=== PATIENT | male | born 1945 | race Caucasian/White ===

== ENCOUNTER 2020-02-09 15:04 | Inpatient (IN) ==
[2020-02-09] MEDS ORDERED: 0.9 % SODIUM CHLORIDE 2,000 ML IV ONE (15:32)
[2020-02-09] MEDS ORDERED: INSULIN REGULAR, HUMAN 1 UNIT/0.01 ML UNIT IV ONE (15:48)
--- NOTE | 2020-02-09 15:59 | Emergency Department Note ---
HPI General Chief complaint: Blood Sugar Problem Stated complaint: hyperglycemia/hypotension Time Seen by Provider: 02/09/20 15:12 Source: patient Mode of arrival: ambulatory Limitations: altered mental status History of Present Illness HPI Narrative: Narrative: 75-year-old male comes over from Dr. Griffin's office for elevated blood sugar and creatinine. He has had some general malaise and weakness but denies fever shortness of breath chest pain or other recent illness. He is an insulin-dependent diabetic with multiple comorbidities. Denies recent exposure to Covid. He does note that he fell several days ago and injured his right elbow-this is mildly red and swollen but he is able to move it normally. Related Data Home Medications Medication Instructions Recorded Confirmed atorvastatin 40 mg PO HS 12/16/16 02/09/20 clopidogrel 75 mg PO DAILY 12/16/16 02/09/20 coenzyme Q10 100 mg capsule 100 mg PO QDAY 11/05/18 02/09/20 metformin 500 mg tablet 1,000 mg PO BID 11/05/18 02/09/20 nitroglycerin 0.4 mg sublingual 0.4 mg SUBLINGUAL Q5-15M PRN 11/05/18 02/09/20 tablet aspirin 81 mg tablet,delayed 81 mg PO HS tab 11/25/18 02/09/20 release insulin detemir U-100 100 unit/mL 26 unit SUB-Q QDAY ml 06/17/19 02/10/20 (3 mL) subcutaneous pen urea 25 %-alpha hydroxy acids 6 % See Rx Instructions TOPICAL BID g 06/24/19 02/09/20 topical cream Previous Rx's Medication Instructions Recorded tamsulosin 0.4 mg PO HS #30 cap 03/20/17 carboxymethylcellulose sodium 0.5 1 drp OPHTHALMIC 4-6XD PRN #30 ml 06/17/19 % eye drops Allergies Allergy/AdvReac Type Severity Reaction Status Date / Time lovastatin Allergy Unknown Unknown Verified 02/09/20 15:05 niacin Allergy Unknown Unknown Verified 02/09/20 15:05 morphine [MORPHINE] AdvReac Mild Nausea/Vomi Verified 02/10/20 06:52 ting Review of Systems ROS ROS Narrative: Narrative: All systems ED: reviewed and negative except as stated. [facility] Narrative Patient History Narrative: Narrative: Medical/Surgical/Family History All Active Problems (Updated 02/09/20 @ 18:55 by Ricardo Mcmullen MD) Hyperosmolar non-ketotic state due to type 2 diabetes mellitus (Acute) Acute kidney injury (Acute) Fall (Acute) Cellulitis of right elbow (Acute) Polypharmacy (Acute) Hypotension (Acute) Dehydration determined by examination (Acute) Frequent falls (Acute) Hypothyroidism (Acute) Gastroenteritis and colitis, viral (Acute) Peripheral vascular disease with claudication (Chronic) Type II diabetes mellitus with complication, uncontrolled (Chronic) Diabetic foot ulcer (Chronic) Memory impairment (Chronic) Skin lesion (Chronic) Intention tremor (Chronic) Epigastric pain (Chronic) Chronic abdominal pain (Chronic) Chronic low back pain (Chronic) GERD (gastroesophageal reflux disease) (Chronic) COPD (chronic obstructive pulmonary disease) (Chronic) Peripheral vascular disease (Chronic) Arteriosclerotic vascular disease (Chronic) Essential hypertension (Chronic) Obstructive sleep apnea syndrome (Chronic) Tobacco dependence syndrome (Chronic) Body mass index exceeds 30 (Chronic) Obesity (Chronic) Hyperlipidemia (Chronic) Diabetes mellitus (Chronic) Chronic kidney disease, stage 3 (moderate) (Chronic) Abdominal pain (Chronic) Dehydration (Chronic) Renal failure (ARF), acute on chronic (Chronic) Ileus, postoperative (Chronic) Urinary retention (Chronic) Medical History Abdominal pain (Chronic) Arteriosclerotic vascular disease (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 Both are slightly above the upper limit of normal As he frequently shows up dehydrated from hypoglycemia this is the reason his KATHIE inhibitor was stopped to prevent acute renal failure under the situations Chronic low back pain (Chronic) COPD (chronic obstructive pulmonary disease) (Chronic) Dehydration (Chronic) Diabetes mellitus (Chronic) Diabetic foot ulcer (Chronic) Epigastric pain (Chronic) Essential hypertension (Chronic) GERD (gastroesophageal reflux disease) (Chronic) Hyperlipidemia (Chronic) Intention tremor (Chronic) Bilateral Hands Memory impairment (Chronic) Obesity (Chronic) Obstructive sleep apnea syndrome (Chronic) Peripheral vascular disease (Chronic) Peripheral vascular disease with claudication (Chronic) Carotid and lower extremity large vessel Dx No retinopathy or nephropathy to suggest small vessel disease Renal failure (ARF), acute on chronic (Chronic) Skin lesion (Chronic) Tobacco dependence syndrome (Chronic) Type II diabetes mellitus with complication, uncontrolled (Chronic) Peripheral neuropathy and PVD HTN No evidence of Diabetic nephropathy Frequently uncontrolled with blood sugars greater than 400 Surgical History History of cardiac catheterization (Chronic ~10/16/18) S/P arterial stent (Chronic) Femoral Family History Brother Malignant tumor of pancreas Father Pulmonary emphysema [place] (myocardial infarction) Mother FHx: cholecystectomy Hx of appendectomy H/O knee surgery Social History Smoking Status: Current every day smoker Alcohol Intake Frequency: does not drink Substance Use: does not use Exam Narrative Narrative: Narrative: Thin male no acute distress resting. Low normal oxygen saturations 90 to 91% on room air but he is a smoker. Normocephalic atraumatic. Conjunctive are clear sclerae white nonicteric. No nasal discharge or congestion. Oropharynx pink with dry buccal mucosa. Neck is supple without lymphadenopathy or thyromegaly. Heart is regular rate and rhythm no murmur appreciated. Lungs are clear to auscultation bilaterally without wheezes rales rhonchi or respiratory distress. Abdomen is soft nontender nondistended. No peritoneal signs. No pedal edema. +2 radial pulse. Alert oriented able to give me reasonable history and review of systems Right elbow is mildly erythematous and edematous and he does have a small area of abrasion. It is mildly tender but he is able to move his arm forearm wrist and hand normally. General Limitations: altered mental status Course Vital Signs Vital signs: Vital Signs Temperature 98.2 F 02/09/20 15:07 Pulse Rate 76 02/09/20 15:07 Respiratory Rate 22 02/09/20 15:07 Blood Pressure 88/53 02/09/20 15:07 Pulse Oximetry (%) 93 02/09/20 15:07 Temperature 98 F 02/10/20 08:01 Pulse Rate 53 L 02/10/20 09:00 Respiratory Rate 21 02/10/20 09:00 Blood Pressure 114/49 02/10/20 09:00 Pulse Oximetry (%) 91 02/10/20 09:14 [facility] MDM Narrative Medical decision making narrative: Narrative: Fingerstick blood sugar here greater than 500 on her meter. We will go ahead and give him an insulin bolus IV fluids and start an insulin drip. Labs were ordered. We will do a rapid Covid swab as he will likely require admission Creatinine is 2.0 and he does have a leukocytosis of 16.7. Blood sugar was 875. He has a mild lactic acidosis as well. We will continue the insulin drip. He will require admission-we will order a blood gas and a beta hydroxybutyrate ABG shows pH 7.33 PCO2 31 PO2 of 58-mild acidosis. Beta hydroxybutyrate was normal as was his urine Blood sugar was improving with fluids and drip and so we continue to titrate it. We got an x-ray of his elbow and started antibiotics Rocephin. Blood sugar trended down to 246 on the drip Elbow x-ray showed soft tissue swelling but no acute fracture or dislocation. I discussed the situation with Dr. Álvarez, the hospitalist and he advised me to get blood cultures and EKG and a chest x-ray. He will see the patient. A1c is noted to be 11.3 earlier this month. We will continue to titrate his insulin drip while he is in the ER Lab Data Lab results reviewed: Yes I reviewed the patient's lab results. Result diagrams: 02/10/20 05:36 02/10/20 05:36 Labs: Lab Results 02/09/20 02/09/20 02/09/20 Range/Units 15:40 15:40 15:40 WBC 16.7 H (4.5-11.0) K/mcL RBC 6.91 H (4.50-5.90) M/mcL Hgb 15.2 (13.5-16.5) g/dL Hct 53.4 (41.0-55.0) % MCV 77.3 L (80.0-100.0) fL MCH 22.0 L (26.0-34.0) pg MCHC 28.5 L (31.0-36.0) g/dL RDW 22.3 H (11.5-14.5) % Plt Count 350 (140-440) K/mcL MPV (7.4-10.4) fL Neut % (Auto) 90.9 H (38.0-78.0) % Lymph % (Auto) 4.1 L (15.0-49.0) % [place] % (Auto) 3.8 (1.0-12.0) % Eos % (Auto) 0.7 (0.0-7.0) % Baso % (Auto) 0.5 (0.0-2.0) % Lymph # (Auto) 0.68 L (1.50-4.80) K/mcL [place] # (Auto) 0.64 (0.10-0.90) K/mcL Eos # (Auto) 0.12 (0.00-0.70) K/mcL Baso # (Auto) 0.08 (0.00-0.20) K/mcL Absolute Neutrophils 15.19 H (1.80-8.00) K/mcL VBG Lactic Acid 2.3 H (0.5-2.0) mmol/L Sodium 123 L (133-145) mmol/L Potassium 5.1 (3.3-5.1) mmol/L Chloride 84 L (96-108) mmol/L Carbon Dioxide 23 (22-30) mmol/L Anion Gap 16.0 (8.0-16.0) BUN 24 H (8-23) mg/dL Creatinine 2.0 H (0.7-1.2) mg/dL GFR Calculation 32 Glucose 875 H* (70-105) mg/dL Calcium 9.3 (8.6-10.4) mg/dL Total Bilirubin 0.6 (0.1-1.0) mg/dL AST 16 (<40) U/L ALT 17 (<40) U/L Alkaline Phosphatase 187 H (39-117) U/L Total Protein 7.3 (5.9-8.4) gm/dL Albumin 3.8 (3.2-5.2) gm/dL Globulin 3.5 (2.2-3.7) gm/dL Albumin/Globulin Ratio 1.1 (1.0-2.3) Lipase 36 (7-60) U/L Beta-Hydroxybutyrate (<0.27) mmol/L Urine Color Urine Appearance (Clear) Urine pH (5.0-9.0) Ur Specific [place] (1.000-1.035) Urine Protein (Negative) mg/dL Urine Glucose (UA) (Negative) mg/dL Urine Ketones (Negative) mg/dL Urine Occult Blood (Negative) mg/dL Urine Nitrate (Negative) Urine Bilirubin (Negative) mg/dL Urine Urobilinogen mg/dL Ur Leukocyte Esterase (Negative) /ug Urine RBC (0-1) /hpf Urine WBC (0-4) /hpf Ur Squamous Epith Cells (0-4) /hpf Urine Bacteria (0) /hpf Urine Mucus (None) /hpf Ur Culture Indicated? 02/09/20 02/09/20 Range/Units 15:40 17:17 WBC (4.5-11.0) K/mcL RBC (4.50-5.90) M/mcL Hgb (13.5-16.5) g/dL Hct (41.0-55.0) % MCV (80.0-100.0) fL MCH (26.0-34.0) pg MCHC (31.0-36.0) g/dL RDW (11.5-14.5) % Plt Count (140-440) K/mcL MPV (7.4-10.4) fL Neut % (Auto) (38.0-78.0) % Lymph % (Auto) (15.0-49.0) % [place] % (Auto) (1.0-12.0) % Eos % (Auto) (0.0-7.0) % Baso % (Auto) (0.0-2.0) % Lymph # (Auto) (1.50-4.80) K/mcL [place] # (Auto) (0.10-0.90) K/mcL Eos # (Auto) (0.00-0.70) K/mcL Baso # (Auto) (0.00-0.20) K/mcL Absolute Neutrophils (1.80-8.00) K/mcL VBG Lactic Acid (0.5-2.0) mmol/L Sodium (133-145) mmol/L Potassium (3.3-5.1) mmol/L Chloride (96-108) mmol/L Carbon Dioxide (22-30) mmol/L Anion Gap (8.0-16.0) BUN (8-23) mg/dL Creatinine (0.7-1.2) mg/dL GFR Calculation Glucose (70-105) mg/dL Calcium (8.6-10.4) mg/dL Total Bilirubin (0.1-1.0) mg/dL AST (<40) U/L ALT (<40) U/L Alkaline Phosphatase (39-117) U/L Total Protein (5.9-8.4) gm/dL Albumin (3.2-5.2) gm/dL Globulin (2.2-3.7) gm/dL Albumin/Globulin Ratio (1.0-2.3) Lipase (7-60) U/L Beta-Hydroxybutyrate 0.22 (<0.27) mmol/L Urine Color Yellow Urine Appearance Clear (Clear) Urine pH 5.0 (5.0-9.0) Ur Specific [place] 1.028 (1.000-1.035) Urine Protein Negative (Negative) mg/dL Urine Glucose (UA) >=500 A (Negative) mg/dL Urine Ketones Negative (Negative) mg/dL Urine Occult Blood Negative (Negative) mg/dL Urine Nitrate Negative (Negative) Urine Bilirubin Negative (Negative) mg/dL Urine Urobilinogen Negative mg/dL Ur Leukocyte Esterase Negative (Negative) /ug Urine RBC < 1 (0-1) /hpf Urine WBC 1 (0-4) /hpf Ur Squamous Epith Cells 0 (0-4) /hpf Urine Bacteria None (0) /hpf Urine Mucus Few A (None) /hpf Ur Culture Indicated? No Radiology Data Radiology results reviewed: Yes I reviewed the patient's radiology results. Radiology results narrative: Elbow x-rays series shows no acute fracture or dislocation. Soft swelling noted Discharge Plan Patient/Caregiver Discharge Instructions Pt seen by MANAGED SERVICES SALES CONSULTANT/PA only: No Clinical Impression: Hyperosmolar non-ketotic state due to type 2 diabetes mellitus, Acute kidney injury, Cellulitis of right elbow Fall Qualifiers: Encounter type: initial encounter Qualified Code(s): W19.XXXA - Unspecified fal l, initial encounter Patient Disposition: Xfer As Inpt ([facility]) Condition: Fair Discharge Date/Time: 02/09/20 23:50
[2020-02-09] MEDS ORDERED: INSULIN REGULAR, HUMAN 50 UNIT in 0.9 % SODIUM CHLORIDE 99.5 ML IV SCH ×2 (16:00→23:52)
[2020-02-09 16:51] LABS: Basophils # (Auto) 0.08 K/mcL (0.00-0.20); Basophils % (Auto) 0.5 % (0.0-2.0); Eosinophils # (Auto) 0.12 K/mcL (0.00-0.70); Eosinophils % (Auto) 0.7 % (0.0-7.0); Hematocrit 53.4 % (41.0-55.0); Hemoglobin 15.2 g/dL (13.5-16.5); Lymphocytes # (Auto) 0.68 K/mcL (1.50-4.80); Lymphocytes % (Auto) 4.1 % (15.0-49.0); Mean Cell Volume 77.3 fL (80.0-100.0); Mean Corpuscular HGB Conc 28.5 g/dL (31.0-36.0); Monocytes # (Auto) 0.64 K/mcL (0.10-0.90); Monocytes % (Auto) 3.8 % (1.0-12.0); Neutrophils % (Auto) 90.9 % (38.0-78.0); Platelet Count 350 K/mcL (140-440); RBC 6.91 M/mcL (4.50-5.90); Red Cell Distribution Width 22.3 % (11.5-14.5); WBC 16.7 K/mcL (4.5-11.0)
[2020-02-09 17:16] LABS: ALT/SGPT 17 U/L (<40); AST/SGOT 16 U/L (<40); Albumin 3.8 gm/dL (3.2-5.2); Albumin/Globulin Ratio 1.1 (1.0-2.3); Alkaline Phosphatase 187 U/L (39-117); Bilirubin,Total 0.6 mg/dL (0.1-1.0); Blood Urea Nitrogen 24 mg/dL (8-23); Calcium 9.3 mg/dL (8.6-10.4); Carbon Dioxide 23 mmol/L (22-30); Chloride 84 mmol/L (96-108); Globulin 3.5 gm/dL (2.2-3.7); Glomerular Filtration Rate 32; Glucose 875 mg/dL (70-105)
[2020-02-09] MEDS ORDERED: cefTRIAXone 1 GM VIAL IV ONE (18:51)
[2020-02-09 19:08] LABS: Appearance,Urine CLEAR (Clear); Bilirubin,Urine Negative (Negative); Color,Urine YELLOW; Culture Indicated,Urine No; Glucose,Urine (UA) >=500 mg/dL (Negative); Ketones,Urine Negative (Negative); Leukocyte Esterase,Urine Negative /ug (Negative); Mucus,Urine FEW /hpf; Nitrate,Urine Negative (Negative); Protein,Urine Negative (Negative); Specific Gravity,Urine 1.028 (1.000-1.035); Urine Blood Negative (Negative); Urine RBC < 1 /hpf (0-1); Urine Squamous Epithelial Cell 0 /hpf (0-4); Urine WBC 1 /hpf (0-4); Urobilinogen,Urine Negative
--- NOTE | 2020-02-09 22:33 | Internal Med History&Physical ---
HPI History of Present Illness Patient information: Note initiated : 02/09/20 at 10:29 pm Service Date, if different from initiated Date: [] Patient: Yoni Santiago 75 y/o M admitted on for hyperglycemia/hypotension. Chief Complaint: [acute kidney injury ] History of present illness: Mr. Santiago is a 75 year old male with a history of CAD, severe PVD, CKD III, poorly controlled IDDM, EDI, extensive tobacco use history, s/p dual lead pacemaker placement who presents to the ED for evaluation of acute on chronic kidney injury. He was sent to the ED by his package dyeing machine operator after routine labs showed an increase in creatinine. In the ED the patient was also found to be severely hyperglycemic with a venous glucose of 875. There is no anion gap and beta hydroxybuterate is normal so hyperosmolar hyperglycemic state was diagnosed. The patient was started on IV fluid and an insulin drip. Other pertinent lab work revealed leukocytosis of 16.7 and a lactic acid level of 2.3. The cause of this is possibly cellulitis of the right elbow which developed after a recent fall. The patient denies recent chest pain, respiratory complaints, abdominal pain, sore throat, the patient does not have any more teeth. ROS is positive for bilateral thigh pain mostly during ambulation. He will be admitted to manage HHS, DERRELL on CKD, and further workup into other possible causes of this illness. Constitutional Constitutional: Present weakness; Absent chills and fatigue EENT Eyes: Present blurry vision; Absent pain Nose, mouth and throat: Absent facial pain and mouth pain Cardiovascular Cardiovascular: Present claudication; Absent chest pain, chest pain with activity, dyspnea on exertion and leg edema Respiratory Respiratory: Absent cough and excessive phlegm production Gastrointestinal Gastrointestinal: Absent abdominal pain and change in bowel habits Genitourinary Genitourinary: urinary frequency Musculoskeletal Musculoskeletal: Present muscle weakness and myalgias Integumentary Integumentary: Present erythema, sores and swelling Neurological Neurological: Present numbness and sensory deficit Psychiatric Psychiatric: Present abnormal sleep pattern PFSH PFSH All Active Problems (Updated 02/09/20 @ 18:55 by Ricardo Mcmullen MD) Hyperosmolar non-ketotic state due to type 2 diabetes mellitus (Acute) Acute kidney injury (Acute) Fall (Acute) Cellulitis of right elbow (Acute) Polypharmacy (Acute) Hypotension (Acute) Dehydration determined by examination (Acute) Frequent falls (Acute) Hypothyroidism (Acute) Gastroenteritis and colitis, viral (Acute) Peripheral vascular disease with claudication (Chronic) Type II diabetes mellitus with complication, uncontrolled (Chronic) Diabetic foot ulcer (Chronic) Memory impairment (Chronic) Skin lesion (Chronic) Intention tremor (Chronic) Epigastric pain (Chronic) Chronic abdominal pain (Chronic) Chronic low back pain (Chronic) GERD (gastroesophageal reflux disease) (Chronic) COPD (chronic obstructive pulmonary disease) (Chronic) Peripheral vascular disease (Chronic) Arteriosclerotic vascular disease (Chronic) Essential hypertension (Chronic) Obstructive sleep apnea syndrome (Chronic) Tobacco dependence syndrome (Chronic) Body mass index exceeds 30 (Chronic) Obesity (Chronic) Hyperlipidemia (Chronic) Diabetes mellitus (Chronic) Chronic kidney disease, stage 3 (moderate) (Chronic) Abdominal pain (Chronic) Dehydration (Chronic) Renal failure (ARF), acute on chronic (Chronic) Ileus, postoperative (Chronic) Urinary retention (Chronic) Medical History Abdominal pain (Chronic) Arteriosclerotic vascular disease (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 Both are slightly above the upper limit of normal As he frequently shows up dehydrated from hypoglycemia this is the reason his KATHIE inhibitor was stopped to prevent acute renal failure under the situations Chronic low back pain (Chronic) COPD (chronic obstructive pulmonary disease) (Chronic) Dehydration (Chronic) Diabetes mellitus (Chronic) Diabetic foot ulcer (Chronic) Epigastric pain (Chronic) Essential hypertension (Chronic) GERD (gastroesophageal reflux disease) (Chronic) Hyperlipidemia (Chronic) Intention tremor (Chronic) Bilateral Hands Memory impairment (Chronic) Obesity (Chronic) Obstructive sleep apnea syndrome (Chronic) Peripheral vascular disease (Chronic) Peripheral vascular disease with claudication (Chronic) Carotid and lower extremity large vessel Dx No retinopathy or nephropathy to suggest small vessel disease Renal failure (ARF), acute on chronic (Chronic) Skin lesion (Chronic) Tobacco dependence syndrome (Chronic) Type II diabetes mellitus with complication, uncontrolled (Chronic) Peripheral neuropathy and PVD HTN No evidence of Diabetic nephropathy Frequently uncontrolled with blood sugars greater than 400 Surgical History History of cardiac catheterization (Chronic ~10/16/18) S/P arterial stent (Chronic) Femoral Family History Brother Malignant tumor of pancreas Father Pulmonary emphysema [place] (myocardial infarction) Mother FHx: cholecystectomy Hx of appendectomy H/O knee surgery Social History (Updated 06/24/19 @ 18:02 by Dawson Griffin MD) occupational status: disabled sexually active: No physical activity: none smoking status: Current every day smoker alcohol intake frequency: does not drink substance use type: does not use seatbelt use: always working smoke detector in home: Yes firearms in home: No MEDS/ALLERGIES Home Medications and Allergies Home Medications Medication Instructions Recorded Confirmed Type atorvastatin 40 mg PO HS 12/16/16 02/09/20 History clopidogrel 75 mg PO DAILY 12/16/16 02/09/20 History tamsulosin 0.4 mg PO HS #30 cap 03/20/17 02/09/20 Rx coenzyme Q10 100 mg capsule 100 mg PO QDAY 11/05/18 02/09/20 History metformin 500 mg tablet 1,000 mg PO BID 11/05/18 02/09/20 History nitroglycerin 0.4 mg sublingual 0.4 mg SUBLINGUAL Q5-15M PRN 11/05/18 02/09/20 History tablet aspirin 81 mg tablet,delayed 81 mg PO HS tab 11/25/18 02/09/20 History release carboxymethylcellulose sodium 0.5 1 drp OPHTHALMIC 4-6XD PRN #30 ml 06/17/19 02/09/20 Rx % eye drops insulin detemir U-100 100 unit/mL 20 unit SUB-Q QDAY ml 06/17/19 02/09/20 History (3 mL) subcutaneous pen urea 25 %-alpha hydroxy acids 6 % See Rx Instructions TOPICAL BID g 06/24/19 02/09/20 History topical cream Allergies Allergy/AdvReac Type Severity Reaction Status Date / Time morphine [MORPHINE] Allergy Intermediate Nausea/Vomi Verified 02/09/20 15:05 ting lovastatin Allergy Unknown Unknown Verified 02/09/20 15:05 niacin Allergy Unknown Unknown Verified 02/09/20 15:05 EXAM Constitutional Vitals: Temp Pulse Resp BP Pulse Ox 98.2 F 66 21 103/50 90 02/09/20 15:07 02/09/20 18:14 02/09/20 22:03 02/09/20 22:03 02/09/20 18:14 Head Head exam: Present atraumatic and normal inspection Eye Eye exam: Absent scleral icterus ENT ENT exam: Present mucous membranes dry Neck Neck exam: Present full ROM; Absent lymphadenopathy and tenderness Respiratory Respiratory exam: Present normal respiratory exam; Absent accessory muscle use Cardiovascular Cardiovascular exam: Present normal rate and rhythm GI/Abdominal GI/Abdominal exam: Present soft; Absent distended, guarding and tenderness Extremities Exam Extremities exam: Present full ROM and joint swelling Additional comments: Right elbow tenderness. Neurological Exam Neurological exam: Present alert and CN II-XII intact Psychiatric Psychiatric exam: Present anxious, normal affect and normal mood Skin Skin exam: Present erythema Additional comments: Redness around wound at right elbow. DATA Data Completed and Pending Labs: Labs from last 24 hours 02/09/20 02/09/20 02/09/20 17:17 15:40 15:40 WBC RBC Hgb Hct MCV MCH MCHC RDW Plt Count MPV Neut % (Auto) Lymph % (Auto) [place] % (Auto) Eos % (Auto) Baso % (Auto) Lymph # (Auto) [place] # (Auto) Eos # (Auto) Baso # (Auto) Absolute Neutrophils VBG Lactic Acid 2.3 H Sodium Potassium Chloride Carbon Dioxide Anion Gap BUN Creatinine GFR Calculation Glucose Calcium Total Bilirubin AST ALT Alkaline Phosphatase Total Protein Albumin Globulin Albumin/Globulin Ratio Lipase Beta-Hydroxybutyrate 0.22 Urine Color Yellow Urine Appearance Clear Urine pH 5.0 Ur Specific [place] 1.028 Urine Protein Negative Urine Glucose (UA) >=500 A Urine Ketones Negative Urine Occult Blood Negative Urine Nitrate Negative Urine Bilirubin Negative Urine Urobilinogen Negative Ur Leukocyte Esterase Negative Urine RBC < 1 Urine WBC 1 Ur Squamous Epith Cells 0 Urine Bacteria None Urine Mucus Few A Ur Culture Indicated? No 02/09/20 02/09/20 15:40 15:40 WBC 16.7 H RBC 6.91 H Hgb 15.2 Hct 53.4 MCV 77.3 L MCH 22.0 L MCHC 28.5 L RDW 22.3 H Plt Count 350 MPV Neut % (Auto) 90.9 H Lymph % (Auto) 4.1 L [place] % (Auto) 3.8 Eos % (Auto) 0.7 Baso % (Auto) 0.5 Lymph # (Auto) 0.68 L [place] # (Auto) 0.64 Eos # (Auto) 0.12 Baso # (Auto) 0.08 Absolute Neutrophils 15.19 H VBG Lactic Acid Sodium 123 L Potassium 5.1 Chloride 84 L Carbon Dioxide 23 Anion Gap 16.0 BUN 24 H Creatinine 2.0 H GFR Calculation 32 Glucose 875 H* Calcium 9.3 Total Bilirubin 0.6 AST 16 ALT 17 Alkaline Phosphatase 187 H Total Protein 7.3 Albumin 3.8 Globulin 3.5 Albumin/Globulin Ratio 1.1 Lipase 36 Beta-Hydroxybutyrate Urine Color Urine Appearance Urine pH Ur Specific [place] Urine Protein Urine Glucose (UA) Urine Ketones Urine Occult Blood Urine Nitrate Urine Bilirubin Urine Urobilinogen Ur Leukocyte Esterase Urine RBC Urine WBC Ur Squamous Epith Cells Urine Bacteria Urine Mucus Ur Culture Indicated? A/P Narrative A/P Narrative: Assessment: 75 year old male with a history of severe PVD, CAD, CKD III, poorly controlled diabetes mellitus, EDI admitted for hyperosmolar hyperglycemic state and DERRELL on CKD. Workup revealed right elbow cellulitis as a possible cause of HHS. #Hyperosmolar hyperglycemic state #Diabetes mellitus type II Plan: IV fluid, insulin drip until glucose < 200 and hemodynamically stable before transitioning to basal/bolus insulin regimen. HHS may have been precipitated by right elbow cellulitis-antibiotics per below. Further workup to include blood cultures, chest xray, EKG to evaluate for other issues that may have precipitated HHS. Holding home Levemir and Metformin. #DERRELL on CKD - probably prerenal, UA was bland, continue IV fluid, follow renal function and urine output. Avoid nephrotoxic medications. #Right elbow cellulitis and wound (nonpurulent) - Start Cefazolin IV, blood culture x2, soft tissue ultrasound to evaluate for underlying abscess, wound care. #Peripheral vascular disease - history of severe peripheral vascular disease, recently has experienced progressive thigh pain with ambulation, check bilateral lower extremity arterial duplex. Check CK level. Continue home Aspirin, Plavix, and Atorvastatin. #Coronary artery disease - no recent chest pains, continue aspirin, plavix, statin, sublingual nitro prn. #EDI - CPAP at bedtime. #Tobacco use disorder - nicotine patch and lozenges. #BPH - hold flomax for now due to hypotension. #DVT prophylaxis - heparin SQ. Time Spent With Patient Time: Total time spent is greater than 50% in coordination of care (as document ed) at patient's floor/unit and/or counseling patient: Total time spent with greater than 50% in coordination of care (as documented) at patient's floor/unit and/or counseling patient:: Greater than 35 minutes
[2020-02-09] MEDS ORDERED: NITROGLYCERIN 0.4 MG TAB.SUBL SL PRN ×2 (23:05→23:52)
[2020-02-09] MEDS ORDERED: 0.9 % SODIUM CHLORIDE 1,000 ML IV SCH (23:52)
[2020-02-09] MEDS ORDERED: 0.9 % SODIUM CHLORIDE 1,000 ML IV ONE (23:52)
[2020-02-10] MEDS ORDERED: ceFAZolin 1 GM VIAL ONE (00:09)
[2020-02-10] MEDS: ceFAZolin 1 GM VIAL IV SCH ×2 (00:43→06:54)
[2020-02-10 01:14] LABS: ALT/SGPT 14 U/L (<40); AST/SGOT 15 U/L (<40); Alkaline Phosphatase 135 U/L (39-117); Bilirubin,Total 0.3 mg/dL (0.1-1.0); Blood Urea Nitrogen 24 mg/dL (8-23); Calcium 8.2 mg/dL (8.6-10.4); Carbon Dioxide 20 mmol/L (22-30); Chloride 100 mmol/L (96-108); Creatine Kinase 55 U/L (24-195); Glomerular Filtration Rate 36; Glucose 170 mg/dL (70-105)
[2020-02-10] MEDS ORDERED: INSULIN GLARGINE, HUMAN 1 UNIT/0.01 ML SQ ONE ×2 (01:19→02:08)
[2020-02-10] MEDS ORDERED: DEXTROSE 31 GM ORAL.SUSP PO PRN ×2 (01:19→08:17)
[2020-02-10] MEDS ORDERED: INSULIN LISPRO 1 UNIT/0.01 ML UNIT SQ SCH (01:30)
[2020-02-10] MEDS: 0.9 % SODIUM CHLORIDE 1,000 ML IV SCH ×2 (01:57→12:42)
[2020-02-10] MEDS: INSULIN LISPRO 1 UNIT/0.01 ML UNIT SQ SCH ×10 (02:08→21:29)
[2020-02-10] MEDS ORDERED: INSULIN LISPRO 1 UNIT/0.01 ML UNIT SQ ONE ×5 (02:15→06:06)
--- NOTE | 2020-02-10 02:33 | Ultrasound Report ---
CLINICAL INFORMATION: Evaluate for abscess COMPARISON: None. FINDINGS: A 2.5 x 2.3 cm complex fluid collection on the extensor surface of the elbow within the subcutaneous fat appreciated. IMPRESSION: 2.5 cm complex fluid collection on the extensor surface of the elbow. Hematoma versus abscess. Interpreted and Authenticated by: Mack Sloan 02/10/20
--- NOTE | 2020-02-10 02:39 | XRay Report ---
CLINICAL INFORMATION: elevated white blood cell count COMPARISON: None. FINDINGS: Dual-chamber pacemaker leads in satisfactory position. Cardiomediastinal silhouette and pulmonary vessels are normal. Probable developing right basilar infiltrate appreciated. There is minor bibasilar scarring and/or atelectasis. Probable COPD noted. No effusion IMPRESSION: Probable COPD with small developing right basilar infiltrate. Minor scattered bibasilar scarring and/or atelectasis. Interpreted and Authenticated by: Mack Sloan 02/10/20
--- NOTE | 2020-02-10 02:43 | XRay Report ---
CLINICAL INFORMATION: Trauma COMPARISON: None. FINDINGS: The elbow joint is normal in width and alignment. No extrasynovial fat pad distention. No fracture or osseous abnormality. Posterior periarticular soft tissue swelling noted. IMPRESSION: No fracture.. Interpreted and Authenticated by: Mack Sloan 02/10/20
[2020-02-10 07:26] LABS: ALT/SGPT 13 U/L (<40); AST/SGOT 15 U/L (<40); Albumin 3.1 gm/dL (3.2-5.2); Albumin/Globulin Ratio 1.1 (1.0-2.3); Alkaline Phosphatase 147 U/L (39-117); Bilirubin,Total 0.3 mg/dL (0.1-1.0); Blood Urea Nitrogen 25 mg/dL (8-23); Calcium 8.3 mg/dL (8.6-10.4); Carbon Dioxide 23 mmol/L (22-30); Chloride 98 mmol/L (96-108); Globulin 2.8 gm/dL (2.2-3.7); Glomerular Filtration Rate 34; Glucose 170 mg/dL (70-105)
[2020-02-10] MEDS ORDERED: DEXTROSE 50% 50 ML VIAL IV PRN (08:17)
[2020-02-10 08:19] LABS: Anisocytosis 2+ (None Seen); Eosinophils % (Manual) 2 % (0-7); Hematocrit 47.1 % (41.0-55.0); Hemoglobin 14.2 g/dL (13.5-16.5); Hypochromasia 1+ (None Seen); Lymphocytes % 8 % (15-49); Mean Cell Volume 72.5 fL (80.0-100.0); Mean Corpuscular HGB Conc 30.1 g/dL (31.0-36.0); Microcytosis 2+ (None Seen); Monocytes % (Manual) 6 % (1-12); Platelet Count 337 K/mcL (140-440); Platelet Estimate NORMAL (Normal); Polychromasia 1+ (None Seen); RBC Morphology ABNORMAL (Normal); Red Cell Distribution Width 21.3 % (11.5-14.5); Segmented Neutrophils % 84 % (38-78); WBC 14.1 K/mcL (4.5-11.0)
[2020-02-10] MEDS: DEXTROSE 50% 50 ML VIAL IV PRN ×2 (08:29→09:49)
[2020-02-10] MEDS: HEPARIN 5,000 UNIT/ML VIAL SQ SCH ×2 (08:32→21:29)
[2020-02-10] MEDS ORDERED: CLOPIDOGREL 75 MG TABLET PO SCH (09:00)
[2020-02-10] MEDS ORDERED: NICOTINE 14 MG PATCH TOPICAL SCH (10:00)
[2020-02-10] MEDS ORDERED: PNEUMOCOCCAL 23-VAL P-SAC VAC 0.5 ML SYRINGE IM ONE (10:00)
[2020-02-10] MEDS: NICOTINE 14 MG PATCH TOPICAL SCH (11:31)
[2020-02-10] MEDS: CLOPIDOGREL 75 MG TABLET PO SCH (13:06)
[2020-02-10] MEDS ORDERED: ceFAZolin 1 GM VIAL IV SCH (14:00)
[2020-02-10] MEDS ORDERED: CARBOXYMETHYLCELLULOSE SODIUM 1 EACH DROPER.GEL OU PRN (16:31)
--- NOTE | 2020-02-10 16:32 | Internal Med Progress Note ---
SUBJECTIVE Subjective Patient information: Note initiated : 02/10/20 at 4:30 pm Service Date, if different from initiated Date: [] Patient: Yoni Santiago 75 y/o M admitted on 02/09/20 for hyperglycemia /hypotension. Chief Complaint: [hyperglycemia] Interval history: Mr. Santiago is a 75 year old male with a history of CAD, severe PVD, CKD III, poorly controlled IDDM, EDI, extensive tobacco use history, s/p dual lead pacemaker pacemaker who presents to the ED for evaluation of acute on chronic kidney injury. He was sent to the ED by his forestry scientist after routine labs showed an increase in creatinine. In the ED the patient was also found to be severely hyperglycemic with a venous glucose of 875. There was no anion gap and beta hydroxybuterate was normal so hyperosmolar hyperglycemic state was diagnosed. The patient was started on IV fluid and an insulin drip. Other pertinent lab work revealed leukocytosis of 16.7 and a lactic acid level of 2.3. The cause of this is possibly cellulitis of the right elbow which developed after a recent fall. The patient denies recent chest pain, respiratory complaints, abdominal pain, sore throat, the patient does not have any more teeth. ROS is positive for bilateral thigh pain mostly during ambulation. He was admitted on 02/08 for management of HHS, DERRELL on CKD, and further workup into other possible causes of this illness. 02/09-off insulin drip, glucose stable with lantus and humalog SSI, wound rohit arslan recommends no aspiration of fluid collection near right elbow, continues on Ancef, WBC down trending, having urinary retention-restarted zhane Flomax, coughing while eating-speech consulted, PT and OT consulted. Constitutional Vitals: Vital Signs Temp Pulse Resp BP Pulse Ox 97 F 74 18 123/74 97 02/10/20 12:02 02/10/20 15:06 02/10/20 15:06 02/10/20 15:06 02/10/20 15:06 Period Temp Pulse Resp BP Sys/Chaparro Pulse Ox Last 24 Hr 97 F-98.2 F 53-74 13-29 88-144/37-100 89-100 Intake and Output 02/10/20 02/10/20 02/10/20 05:59 13:59 21:59 Intake Total 1130 1000 Output Total 0 0 Balance 1130 1000 Weight 83.603 kg 83.603 kg Patient Weight 02/11/20 05:59 Weight 83.603 kg Intake & Output: Intake & Output 02/10/20 02/10/20 02/10/20 05:59 13:59 21:59 Intake Total 1130 1000 Output Total 0 0 Balance 1130 1000 Weight 83.603 kg 83.603 kg Intake: IV 1010 1000 Sodium Chloride 0.9% 1,000 ml @ 1000 1000 100 mls/hr IV .Q10H EMILY Rx#: [id number] HumuLIN R 50 UNIT In Sodium 10 Chloride 0.9% 99.5 ml @ As Directed IV DUR EMILY Rx#: [id number] Oral 120 0 Output: Void Amount 0 0 Other: Meal Nourishment/Supplement Percent of Meal Consumed 100% Feeding Ability Independent Nourishment/Supplement name rajani Head Head exam: Present atraumatic and normal inspection Eye Eye exam: Absent scleral icterus Neck Neck exam: Present full ROM Respiratory Respiratory exam: Absent accessory muscle use and respiratory distress Cardiovascular Cardiovascular exam: Present normal rate and rhythm GI/Abdominal GI/Abdominal exam: Present distended; Absent tenderness Extremities Exam Extremities exam: Present full ROM and normal inspection Neurological Exam Neurological exam: Present alert and altered Psychiatric Psychiatric exam: Present normal affect and normal mood Skin Skin exam: Present erythema and warm OBJ DATA Labs CBC & Chem 7: 02/10/20 05:36 02/10/20 05:36 Labs: Abnormal Lab Results 02/10/20 02/10/20 02/10/20 05:36 05:36 00:16 WBC 14.1 H RBC 6.50 H MCV 72.5 L MCH 21.8 L MCHC 30.1 L RDW 21.3 H Neut % (Auto) Lymph % (Auto) Lymph # (Auto) Seg Neutrophils % 84 H Lymphocytes % 8 L Absolute Neutrophils RBC Morphology Abnormal A Polychromasia 1+ A Hypochromasia 1+ A Anisocytosis 2+ A Microcytosis 2+ A VBG Lactic Acid Sodium 130 L Chloride Carbon Dioxide 20 L BUN 25 H 24 H Creatinine 1.9 H 1.8 H Glucose 170 H 170 H Calcium 8.3 L 8.2 L Alkaline Phosphatase 147 H 135 H Albumin 3.1 L 3.0 L Urine Glucose (UA) Urine Mucus 02/09/20 02/09/20 02/09/20 17:17 15:40 15:40 WBC RBC MCV MCH MCHC RDW Neut % (Auto) Lymph % (Auto) Lymph # (Auto) Seg Neutrophils % Lymphocytes % Absolute Neutrophils RBC Morphology Polychromasia Hypochromasia Anisocytosis Microcytosis VBG Lactic Acid 2.3 H Sodium 123 L Chloride 84 L Carbon Dioxide BUN 24 H Creatinine 2.0 H Glucose 875 H* Calcium Alkaline Phosphatase 187 H Albumin Urine Glucose (UA) >=500 A Urine Mucus Few A 02/09/20 15:40 WBC 16.7 H RBC 6.91 H MCV 77.3 L MCH 22.0 L MCHC 28.5 L RDW 22.3 H Neut % (Auto) 90.9 H Lymph % (Auto) 4.1 L Lymph # (Auto) 0.68 L Seg Neutrophils % Lymphocytes % Absolute Neutrophils 15.19 H RBC Morphology Polychromasia Hypochromasia Anisocytosis Microcytosis VBG Lactic Acid Sodium Chloride Carbon Dioxide BUN Creatinine Glucose Calcium Alkaline Phosphatase Albumin Urine Glucose (UA) Urine Mucus Meds: Medications Aspirin (Aspirin) 81 mg PO HS [facility] Atorvastatin Calcium (Lipitor) 40 mg PO HS [facility] Cefazolin Sodium (Ancef) 2 gm IV Q8H [facility]; Protocol Last Admin: 02/10/20 13:07 Dose: 2 gm Documented by: Clopidogrel Bisulfate (Plavix) 75 mg PO DAILY [facility] Last Admin: 02/10/20 13:06 Dose: 75 mg Documented by: Dextrose (Dextrose 50%) 0 ml IV UD PRN PRN Reason: Hypoglycemia Last Admin: 02/10/20 09:49 Dose: 25 ml Documented by: Dextrose (Dextrose 50%) 0 ml IV UD PRN PRN Reason: Hypoglycemia Diagnostic Test (Pha) (Accu-Chek) 1 each FS ACHS [facility] Last Admin: 02/10/20 11:31 Dose: 1 each Documented by: Glucose (Insta-Glucose) 15 gm PO PRN PRN PRN Reason: Hypoglycemia Last Admin: 02/10/20 08:14 Dose: 15 gm Documented by: Glucose (Insta-Glucose) 15 gm PO PRN PRN PRN Reason: Hypoglycemia Heparin Sodium (Porcine) (Heparin) 5,000 unit SQ Q12 [facility] Last Admin: 02/10/20 08:32 Dose: 5,000 unit Documented by: Insulin Glargine (Lantus) 20 unit SQ HS [facility] Insulin Human Lispro (Humalog) 0 unit SQ ACHS [facility]; Protocol Last Admin: 02/10/20 11:31 Dose: Not Given Documented by: Nicotine (Nicoderm) 14 mg TOPICAL DAILY@1000 [facility] Last Admin: 02/10/20 11:31 Dose: 14 mg Documented by: Nitroglycerin (Nitrostat) 0.4 mg SL Q5MIN PRN PRN Reason: Chest Pain Non-Formulary Medication (Carboxymethylcellulose Sodium [Refresh Tears]) 1 drp OPHTHALMIC 4-6XD PRN PRN Reason: dry eye(s) Pneumococcal Polyvalent Vaccine (Pneumovax 23) 0.5 ml IM .ONCE ONE Stop: 02/11/20 10:01 A/P Narrative A/P Narrative: Assessment: 75 year old male with a history of severe PVD, CAD, CKD III, poorly controlled diabetes mellitus, EDI admitted for hyperosmolar hyperglycemic state and DERRELL on CKD. Workup revealed right elbow cellulitis as a possible cause of HHS. #Hyperosmolar hyperglycemic state, resolved #Diabetes mellitus type II Plan: Off insulin drip, continue with lantus and correction humalog SSI-medium, discontinued IV fluid, HHS may have been precipitated by right elbow cellulitis-antibiotics per below. Follow blood cultures, chest xray shows small right basilar infiltrate-possible aspiration related, EKG did not show any acute ischemic changes. Holding home Levemir and Metformin. #Possible aspiration pneumonia - developing right basal infiltrate on xray per radiology read-start Ceftriaxone, speech consulted. #COPD -diagnosis per chart review, has nocturnal hypoxia-likely chronic, was not on inhaler for COPD-will start scheduled duonebs and prn albuterol and monitor for improvement. Check VBG for CO2 retention. #DERRELL on CKD - probably prerenal, UA was bland, continue IV fluid, follow renal function and urine output. Avoid nephrotoxic medications. #Right elbow cellulitis and wound (nonpurulent) - start Ceftriaxone which should cover for cellulitis and also for pneumonia, follow blood culture x2, wound care. No surgical intervention per wound surgery. #Peripheral vascular disease - history of severe peripheral vascular disease, recently has experienced progressive thigh pain with ambulation, check bilateral lower extremity arterial duplex. Check CK level. Continue home Aspirin, Plavix, and Atorvastatin. #Coronary artery disease - no recent chest pains, continue aspirin, plavix, statin, sublingual nitro prn. #Probable cognitive impairment - OT consulted for cognitive evaluation. #EDI - CPAP at bedtime. #Tobacco use disorder - nicotine patch and lozenges. #BPH - hold flomax for now due to hypotension. #DVT prophylaxis - heparin SQ. Time Spent With Patient Time: Total time spent is greater than 50% in coordination of care (as documented) at patient's floor/unit and/or counseling patient: Total time spent with greater than 50% in coordination of care (as documented) at patient's floor/unit and/or counseling patient:: 25 - 35 minutes QUALITY VTE Deep Vein Thrombosis/Pulmonary Embolism Present on Admission: No
[2020-02-10] MEDS ORDERED: ALBUTEROL SULFATE 2.5 MG/3 ML NEBULIZER NEB PRN (17:17)
[2020-02-10] MEDS: TAMSULOSIN 0.4 MG CAPSULE PO SCH ×2 (17:22→21:28)
[2020-02-10] MEDS: cefTRIAXone 1 GM VIAL IV SCH (17:39)
[2020-02-10 17:58] LABS: ABG Methemoglobin 0 % (0.4-1.5); Total Hemoglobin 13.7 gm/Dl (13.5-16.5); VBG Base Excess -5 (-2-3); VBG HCO3 21.1 mmol/L (24.0-28.0); VBG Oxygen Saturation 55.5 % (40.0-70.0); VBG PCO2 41.7 mmHg (41.0-51.0); VBG PH 7.32 U (7.32-7.42); VBG PO2 33.8 mmHg (25.0-40.0); VBG Total CO2 22.3 mmol/L (25.0-29.0)
--- NOTE | 2020-02-10 18:19 | Ultrasound Report ---
CLINICAL INFORMATION: thigh claudication COMPARISON: None. FINDINGS: The abdominal aorta is normal diameter. Both common iliac external iliac common femoral superficial femoral popliteal and trifurcation arteries are extremely difficult to evaluate sonographically due to the presence of extremely dense calcific plaque which limits Doppler interrogation of arterial blood flow. IMPRESSION: No evidence of occlusion. Stenosis evaluation limited due to heavy calcific plaque throughout the lower extremity arteries. Suggest: CT abdominal aortogram with runoff. If patient cannot tolerate iodinated contrast then MR abdominal aortogram with runoff would be adequate substernal Interpreted and Authenticated by: Mack Sloan 02/10/20
--- NOTE | 2020-02-10 19:10 | XRay Report ---
CLINICAL INFORMATION: possible aspiration COMPARISON: 02/09/2020 FINDINGS: Mild cardiomegaly is unchanged. Pacemaker leads in stable satisfactory position. Mediastinum and pulmonary vessels are normal. No definite infiltrate seen on today's study only minor bibasilar scarring and/or atelectasis. IMPRESSION: No definite infiltrate. Interpreted and Authenticated by: Mack Sloan 02/10/20
[2020-02-10] MEDS: IPRATROPIUM/ALBUTEROL 3 ML AMPUL.NEB NEB SCH (19:41)
[2020-02-10] MEDS ORDERED: ATORVASTATIN 40 MG TABLET PO SCH ×2 (21:00)
[2020-02-10] MEDS ORDERED: INSULIN GLARGINE, HUMAN 1 UNIT/0.01 ML SQ SCH (21:00)
[2020-02-10] MEDS ORDERED: NON FORMULARY MEDICATION 1 DOSE MISCELL (Aspirin [Adult Low Dose Aspirin] 81 MG) PO SCH (21:00)
[2020-02-10] MEDS ORDERED: ASPIRIN 81 MG TAB.CHEW PO SCH (21:00)
[2020-02-11] MEDS: IPRATROPIUM/ALBUTEROL 3 ML AMPUL.NEB NEB SCH ×2 (02:04→07:40)
[2020-02-11 06:58] LABS: ALT/SGPT 8 U/L (<40); AST/SGOT 17 U/L (<40); Albumin 2.8 gm/dL (3.2-5.2); Alkaline Phosphatase 119 U/L (39-117); Bilirubin,Total 0.3 mg/dL (0.1-1.0); Blood Urea Nitrogen 19 mg/dL (8-23); Calcium 7.8 mg/dL (8.6-10.4); Carbon Dioxide 20 mmol/L (22-30); Chloride 104 mmol/L (96-108); Globulin 2.8 gm/dL (2.2-3.7); Glomerular Filtration Rate 60; Glucose 206 mg/dL (70-105)
[2020-02-11] MEDS: INSULIN LISPRO 1 UNIT/0.01 ML UNIT SQ SCH ×4 (07:21→20:33)
[2020-02-11 08:38] LABS: Eosinophils % (Manual) 1 % (0-7); Hematocrit 44.8 % (41.0-55.0); Hemoglobin 13.4 g/dL (13.5-16.5); Lymphocytes % 10 % (15-49); Mean Cell Volume 73.3 fL (80.0-100.0); Mean Corpuscular HGB Conc 29.9 g/dL (31.0-36.0); Monocytes % (Manual) 6 % (1-12); Platelet Count 307 K/mcL (140-440); Platelet Estimate NORMAL (Normal); RBC 6.11 M/mcL (4.50-5.90); RBC Morphology NORMAL (Normal); Red Cell Distribution Width 21.8 % (11.5-14.5); Segmented Neutrophils % 83 % (38-78); WBC 10.8 K/mcL (4.5-11.0)
[2020-02-11] MEDS: HEPARIN 5,000 UNIT/ML VIAL SQ SCH ×2 (09:38→20:33)
[2020-02-11] MEDS: cefTRIAXone 1 GM VIAL IV SCH (09:38)
[2020-02-11] MEDS: NICOTINE 14 MG PATCH TOPICAL SCH (09:38)
[2020-02-11] MEDS: CLOPIDOGREL 75 MG TABLET PO SCH (09:38)
[2020-02-11] MEDS ORDERED: PNEUMOCOCCAL 23-VAL P-SAC VAC 0.5 ML SYRINGE IM ONE (10:00)
--- NOTE | 2020-02-11 10:27 | General Surgery Consult Note ---
HPI Data of Consult Consult date: 02/10/20 Requesting physician: John Wharton Primary Care Provider: PCP No Family Provider: I saw this patient in consultation yesterday and reassesses him today with Satya ICU nurse and Santy RN, Wound Care Nurse. Wound care consult was requested for evaluation of RIGHT posterior elbow wound and consideration of fluid drainage / debridement. Patient is a 75 year old male with multiple medical problems, admitted via ER for uncontrolled diabetes, exacerbation of CKD and fall at home. Noted to have an abrasion and dry scab over Right posterior elbow. Plain X Ray was negative for any fracture or dislocatio. U/S reported a fluid collection at this site. Consult Narrative Patient Information: Note initiated : 02/11/20 at 10:12 am Service Date, if different from initiated Date: [] Patient: Yoni Santiago 75 y/o M admitted on 02/09/20 for hyperglycemia/hypotension. Chief Complaint: [] Chief complaint: 75/m H/O fall at home. RIGHT posterior elbow abrasion covered with scab Reason for consult: Evaluation of wound Right posterior elbow. cc:: CC: John Wharton MD [facility] PFSH All Active Problems (Updated 02/09/20 @ 18:55 by Ricardo Mcmullen MD) Hyperosmolar non-ketotic state due to type 2 diabetes mellitus (Acute) Acute kidney injury (Acute) Fall (Acute) Cellulitis of right elbow (Acute) Polypharmacy (Acute) Hypotension (Acute) Dehydration determined by examination (Acute) Frequent falls (Acute) Hypothyroidism (Acute) Gastroenteritis and colitis, viral (Acute) Peripheral vascular disease with claudication (Chronic) Type II diabetes mellitus with complication, uncontrolled (Chronic) Diabetic foot ulcer (Chronic) Memory impairment (Chronic) Skin lesion (Chronic) Intention tremor (Chronic) Epigastric pain (Chronic) Chronic abdominal pain (Chronic) Chronic low back pain (Chronic) GERD (gastroesophageal reflux disease) (Chronic) COPD (chronic obstructive pulmonary disease) (Chronic) Peripheral vascular disease (Chronic) Arteriosclerotic vascular disease (Chronic) Essential hypertension (Chronic) Obstructive sleep apnea syndrome (Chronic) Tobacco dependence syndrome (Chronic) Body mass index exceeds 30 (Chronic) Obesity (Chronic) Hyperlipidemia (Chronic) Diabetes mellitus (Chronic) Chronic kidney disease, stage 3 (moderate) (Chronic) Abdominal pain (Chronic) Dehydration (Chronic) Renal failure (ARF), acute on chronic (Chronic) Ileus, postoperative (Chronic) Urinary retention (Chronic) Medical History Abdominal pain (Chronic) Arteriosclerotic vascular disease (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 Both are slightly a kelly the upper limit of normal As he frequently shows up dehydrated from hypoglycemia this is the reason his KATHIE inhibitor was stopped to prevent acute renal failure under the situations Chronic low back pain (Chronic) COPD (chronic obstructive pulmonary disease) (Chronic) Dehydration (Chronic) Diabetes mellitus (Chronic) Diabetic foot ulcer (Chronic) Epigastric pain (Chronic) Essential hypertension (Chronic) GERD (gastroesophageal reflux disease) (Chronic) Hyperlipidemia (Chronic) Intention tremor (Chronic) Bilateral Hands Memory impairment (Chronic) Obesity (Chronic) Obstructive sleep apnea syndrome (Chronic) Peripheral vascular disease (Chronic) Peripheral vascular disease with claudication (Chronic) Carotid and lower extremity large vessel Dx No retinopathy or nephropathy to suggest small vessel disease Renal failure (ARF), acute on chronic (Chronic) Skin lesion (Chronic) Tobacco dependence syndrome (Chronic) Type II diabetes mellitus with complication, uncontrolled (Chronic) Peripheral neuropathy and PVD HTN No evidence of Diabetic nephropathy Frequently uncontrolled with blood sugars greater than 400 Surgical History History of cardiac catheterization (Chronic ~10/16/18) S/P arterial stent (Chronic) Femoral Family History Brother Malignant tumor of pancreas Father Pulmonary emphysema [place] (myocardial infarction) Mother FHx: cholecystectomy Hx of appendectomy H/O knee surgery Social History (Updated 06/24/19 @ 18:02 by Dawson Griffin MD) occupational status: disabled sexually active: No physical activity: none smoking status: Current every day smoker alcohol intake frequency: does not drink substance use type: does not use seatbelt use: always working smoke detector in home: Yes firearms in home: No MEDS/ALLERGIES Home Medications and Allergies Home Medications Medication Instructions Recorded Confirmed Type atorvastatin 40 mg PO HS 12/16/16 02/10/20 History clopidogrel 75 mg PO DAILY 12/16/16 02/10/20 History coenzyme Q10 100 mg capsule 100 mg PO QDAY 11/05/18 02/10/20 History metformin 500 mg tablet 1,000 mg PO BID 11/05/18 02/10/20 History nitroglycerin 0.4 mg sublingual 0.4 mg SUBLINGUAL Q5-15M PRN 11/05/18 02/10/20 History tablet aspirin 81 mg tablet,delayed 81 mg PO HS tab 11/25/18 02/10/20 History release carboxymethylcellulose sodium 0.5 1 drp OPHTHALMIC 4-6XD PRN #30 ml 06/17/19 02/10/20 Rx % eye drops urea 25 %-alpha hydroxy acids 6 % See Rx Instructions TOPICAL BID g 06/24/19 02/10/20 History topical cream Vitamin D3 2,000 units PO DAILY 02/13/20 02/13/20 History ketorolac [Acular] 1 drp OPHTHALMIC (EYE) TID 02/13/20 02/13/20 History ketotifen fumarate [Alaway] 1 drp OPHTHALMIC (EYE) BID 02/13/20 02/13/20 History levothyroxine 25 mcg PO QDAY 02/13/20 02/13/20 History lisinopril 10 mg PO QDAY 02/13/20 02/13/20 History pen needle, diabetic [TechLITE Pen 02/13/20 02/13/20 History Needle] tamsulosin 0.8 mg PO HS #30 cap 02/13/20 Rx atenolol 100 mg PO DAILY 02/15/20 02/15/20 History cephalexin [Keflex] 500 mg PO QID #4 cap 02/15/20 Rx insulin detemir U-100 [Levemir 15 unit SUB-Q QAM #3 ml 02/15/20 Rx FlexTouch U-100 Insuln] insulin detemir U-100 [Levemir 20 unit SUB-Q QHS #3 ml 02/15/20 Rx FlexTouch U-100 Insuln] nicotine 1 patch TRANSDERMA Q24H #7 each 02/16/20 Rx Allergies Allergy/AdvReac Type Severity Reaction Status Date / Time lovastatin Allergy Unknown Unknown Verified 02/09/20 15:05 niacin Allergy Unknown Unknown Verified 02/09/20 15:05 morphine [MORPHINE] AdvReac Mild Nausea/Vomi Verified 02/10/20 06:52 ting Physical Examination Vital Signs Vital signs: Temp Pulse Resp BP Pulse Ox 97.1 F 75 26 H 137/45 94 02/11/20 08:01 02/11/20 10:01 02/11/20 10:01 02/11/20 10:01 02/11/20 10:01 General physical appearance General physical exam: well developed, well nourished, no distress and no pain Eyes Eye exam: PERRL and normal ocular movement ENT ENT exam: normal pinna, normal nares, normal mucosa, no congestion and other (Finished eating his breaakfast.) Head Head exam IM: Present atraumatic and normocephalic Neck Neck exam: no masses, trachea midline and no venous distension Cardiovascular Cardiovascular exam IM: Present normal rate and rhythm Cardiovascular: H/O PAD and PVD. weak pedal pulses Respiratory Respiratory exam: normal expansion and clear to auscultation Abdomen Abdomen: Present soft, non tender and bowel sounds Integumentary Integumentary: Present other (Dry abrasion site of redundent skin, Olecraon bursa of elbow. ) Neurologic Neurologic: Present normal coordination and other (Peripheral neuropathy) Musculoskeletal Musculoskeletal: Present other (NO focal bone or joint abnormalities. ) Psychiatric Psychiatric: Present oriented to time, oriented to place and speech is normal Results Labs Result diagrams: 02/12/20 05:23 02/13/20 05:53 Labs: Abnormal lab results 02/10/20 02/11/20 02/11/20 Range/Units 17:34 05:22 05:22 RBC 6.11 H (4.50-5.90) M/mcL Hgb 13.4 L (13.5-16.5) g/dL MCV 73.3 L (80.0-100.0) fL MCH 21.9 L (26.0-34.0) pg MCHC 29.9 L (31.0-36.0) g/dL RDW 21.8 H (11.5-14.5) % Seg Neutrophils % 83 H (38-78) % Lymphocytes % 10 L (15-49) % ABG Methemoglobin 0 L (0.4-1.5) % VBG HCO3 21.1 L (24.0-28.0) mmol/L VBG Total CO2 22.3 L (25.0-29.0) mmol/L VBG Base Excess -5 L (-2-3) Carboxyhemoglobin 3.4 H (0.0-1.5) % THgb Carbon Dioxide 20 L (22-30) mmol/L Glucose 206 H (70-105) mg/dL Calcium 7.8 L (8.6-10.4) mg/dL Alkaline Phosphatase 119 H (39-117) U/L Total Protein 5.6 L (5.9-8.4) gm/dL Albumin 2.8 L (3.2-5.2) gm/dL Diabetes panel 02/11/20 Range/Units 05:22 Sodium 134 (133-145) mmol/L Potassium 3.7 (3.3-5.1) mmol/L Chloride 104 (96-108) mmol/L Carbon Dioxide 20 L (22-30) mmol/L BUN 19 (8-23) mg/dL Creatinine 1.2 (0.7-1.2) mg/dL Glucose 206 H (70-105) mg/dL Calcium 7.8 L (8.6-10.4) mg/dL AST 17 (<40) U/L ALT 8 (<40) U/L Alkaline Phosphatase 119 H (39-117) U/L Total Protein 5.6 L (5.9-8.4) gm/dL Albumin 2.8 L (3.2-5.2) gm/dL Calcium panel 02/11/20 Range/Units 05:22 Calcium 7.8 L (8.6-10.4) mg/dL Albumin 2.8 L (3.2-5.2) gm/dL Pituitary panel 02/11/20 Range/Units 05:22 Sodium 134 (133-145) mmol/L Potassium 3.7 (3.3-5.1) mmol/L Chloride 104 (96-108) mmol/L Carbon Dioxide 20 L (22-30) mmol/L BUN 19 (8-23) mg/dL Creatinine 1.2 (0.7-1.2) mg/dL Glucose 206 H (70-105) mg/dL Calcium 7.8 L (8.6-10.4) mg/dL Adrenal panel 12/16/20 Range/Units 05:22 Sodium 134 (133-145) mmol/L Potassium 3.7 (3.3-5.1) mmol/L Chloride 104 (96-108) mmol/L Carbon Dioxide 20 L (22-30) mmol/L BUN 19 (8-23) mg/dL Creatinine 1.2 (0.7-1.2) mg/dL Glucose 206 H (70-105) mg/dL Calcium 7.8 L (8.6-10.4) mg/dL Total Bilirubin 0.3 (0.1-1.0) mg/dL AST 17 (<40) U/L ALT 8 (<40) U/L Alkaline Phosphatase 119 H (39-117) U/L Total Protein 5.6 L (5.9-8.4) gm/dL Albumin 2.8 L (3.2-5.2) gm/dL All other labs normal. A/P Narrative A/P Narrative: Assessment: Stage 1 ulcer Epidermal RIGHT posterior elbow . Clean and dry. NO signs of acute infection or inflammation. Plan: Local wound care. Clean with Chlorhexidene or Betadine swab, air dry. Bacitracin ointment and Mepilex foam dressing. If discharged f/u at wound clinic in 1 week. Time Spent With Patient Time: Total time spent is greater than 50% in coordination of care (as documented) at patient's floor/unit and/or counseling patient: Total time spent with greater than 50% in coordination of care (as documented) at patient's floor/unit and/or counseling patient:: 25 - 35 minutes
--- NOTE | 2020-02-11 12:52 | Cat Scan Report ---
CLINICAL INFORMATION: COMPARISON: None. TECHNIQUE: 2.5 mm helical slices were obtained in the skull base to vertex. Following reconstruction, axial reformatted images were reviewed at bone and parenchymal windows. The exam was performed using radiation dose optimization techniques including, but not limited to, automated exposure control, adjustment of the mA and/or kV according to patient size and use of iterative reconstruction technique. FINDINGS: The ventricles, sulci, fissures, and cisterns show mild symmetric enlargement of compatible with mild age-related atrophy. No extra-axial fluid collections are identified. Mild patchy chronic ischemic changes in the deep cerebral white matter also expected for age. There is no evidence of hemorrhage, mass effect, or edema. Bone windows show no osseous abnormality. IMPRESSION: Mild atrophy and patchy chronic ischemic changes in the deep cerebral white matter - expected for age. No acute finding. Interpreted and Authenticated by: Mack Sloan 02/11/20
--- NOTE | 2020-02-11 14:38 | Internal Med Progress Note ---
SUBJECTIVE Subjective Patient information: Note initiated : 02/11/20 at 2:35 pm Service Date, if different from initiated Date: [] Patient: Yoni Santiago 75 y/o M admitted on 02/09/20 for hyperglycemia /hypotension. Chief Complaint: [] Interval history: Mr. Santiago is a 75 year old male with a history of CAD, severe PVD, CKD III, poorly controlled IDDM, EDI, extensive tobacco use history, s/p dual lead pacemaker pacemaker who presents to the ED for evaluation of acute on chronic kidney injury. He was sent to the ED by his inspector scales after routine labs showed an increase in creatinine. In the ED the patient was also found to be severely hyperglycemic with a venous glucose of 875. There was no anion gap and beta hydroxybuterate was normal so hyperosmolar hyperglycemic state was diagnosed. The patient was started on IV fluid and an insulin drip. Other pertinent lab work revealed leukocytosis of 16.7 and a lactic acid level of 2.3. The cause of this is possibly cellulitis of the right elbow which developed after a recent fall. The patient denies recent chest pain, respiratory complaints, abdominal pain, sore throat, the patient does not have any more teeth. ROS is positive for bilateral thigh pain mostly during ambulation. He was admitted on 02/08 for management of HHS, DERRELL on CKD, and further workup into other possible causes of this illness. 02/09-off insulin drip, glucose stable with lantus and humalog SSI, wound surgery recommends no aspiration of fluid collection near right elbow, initially on Ancef then transitioned to Ceftriaxone for xray showing developing right basilar infiltrate, WBC down trending, having urinary retention-restarted home Flomax, coughing while eating-speech consulted, PT and OT consulted. 02/10-increased lantus 25-->30 for AM hyperglycemia and humalog SSI to high, DERRELL resolving, CT head negative for acute findings, severe cognitive impairment suggested by OT evaluation. Constitutional Vitals: Vital Signs Temp Pulse Resp BP Pulse Ox 98.1 F 74 15 133/67 94 02/11/20 14:01 02/11/20 14:27 02/11/20 12:01 02/11/20 14:02 02/11/20 14:27 Period Temp Pulse Resp BP Sys/Chaparro Pulse Ox Last 24 Hr 97.1 F-98.7 F 60-75 5-27 96-158/42-106 91-100 Intake and Output 02/11/20 02/11/20 02/11/20 05:59 13:59 21:59 Intake Total 440 840 Output Total 360 Balance 80 840 Intake & Output: Intake & Output 02/11/20 02/11/20 02/11/20 05:59 13:59 21:59 Intake Total 440 840 Output Total 360 Balance 80 840 Intake: Oral 440 840 Output: Void Amount 360 Other: Meal Breakfast Percent of Meal Consumed 100% Feeding Ability Independent Urine Appearance Clear Clear Straight Clear Urine Color Bright Yellow Bright Yellow Straight Dark Yellow Urine Odor Straight Strong Stool Size Small Stool Color Brown Stool Consistency Loose Head Head exam: Present atraumatic and normal inspection Eye Eye exam: Present normal appearance ENT ENT exam: Present mucous membranes moist, normal exam and normal external ear ex am Neck Neck exam: Present normal inspection Respiratory Respiratory exam: Present normal respiratory exam Cardiovascular Cardiovascular exam: Present normal rate and rhythm GI/Abdominal GI/Abdominal exam: Present normal bowel sounds Back Exam Back exam: Present normal inspection Neurological Exam Neurological exam: Present alert and altered Psychiatric Psychiatric exam: Absent agitated and anxious Skin Skin exam: Present intact and warm OBJ DATA Labs CBC & Chem 7: 02/11/20 05:22 02/11/20 05:22 Labs: Abnormal Lab Results 02/11/20 02/11/20 02/10/20 05:22 05:22 17:34 WBC RBC 6.11 H Hgb 13.4 L MCV 73.3 L MCH 21.9 L MCHC 29.9 L RDW 21.8 H Neut % (Auto) Lymph % (Auto) Lymph # (Auto) Seg Neutrophils % 83 H Lymphocytes % 10 L Absolute Neutrophils RBC Morphology Polychromasia Hypochromasia Anisocytosis Microcytosis ABG Methemoglobin 0 L VBG HCO3 21.1 L VBG Total CO2 22.3 L VBG Base Excess -5 L VBG Lactic Acid Carboxyhemoglobin 3.4 H Sodium Chloride Carbon Dioxide 20 L BUN Creatinine Glucose 206 H Calcium 7.8 L Alkaline Phosphatase 119 H Total Protein 5.6 L Albumin 2.8 L Urine Glucose (UA) Urine Mucus 02/10/20 02/10/20 02/10/20 05:36 05:36 00:16 WBC 14.1 H RBC 6.50 H Hgb MCV 72.5 L MCH 21.8 L MCHC 30.1 L RDW 21.3 H Neut % (Auto) Lymph % (Auto) Lymph # (Auto) Seg Neutrophils % 84 H Lymphocytes % 8 L Absolute Neutrophils RBC Morphology Abnormal A Polychromasia 1+ A Hypochromasia 1+ A Anisocytosis 2+ A Microcytosis 2+ A ABG Methemoglobin VBG HCO3 VBG Total CO2 VBG Base Excess VBG Lactic Acid Carboxyhemoglobin Sodium 130 L Chloride Carbon Dioxide 20 L BUN 25 H 24 H Creatinine 1.9 H 1.8 H Glucose 170 H 170 H Calcium 8.3 L 8.2 L Alkaline Phosphatase 147 H 135 H Total Protein Albumin 3.1 L 3.0 L Urine Glucose (UA) Urine Mucus 02/09/20 02/09/20 02/09/20 17:17 15:40 15:40 WBC RBC Hgb MCV MCH MCHC RDW Neut % (Auto) Lymph % (Auto) Lymph # (Auto) Seg Neutrophils % Lymphocytes % Absolute Neutrophils RBC Morphology Polychromasia Hypochromasia Anisocytosis Microcytosis ABG Methemoglobin VBG HCO3 VBG Total CO2 VBG Base Excess VBG Lactic Acid 2.3 H Carboxyhemoglobin Sodium 123 L Chloride 84 L Carbon Dioxide BUN 24 H Creatinine 2.0 H Glucose 875 H* Calcium Alkaline Phosphatase 187 H Total Protein Albumin Urine Glucose (UA) >=500 A Urine Mucus Few A 02/09/20 15:40 WBC 16.7 H RBC 6.91 H Hgb MCV 77.3 L MCH 22.0 L MCHC 28.5 L RDW 22.3 H Neut % (Auto) 90.9 H Lymph % (Auto) 4.1 L Lymph # (Auto) 0.68 L Seg Neutrophils % Lymphocytes % Absolute Neutrophils 15.19 H RBC Morphology Polychromasia Hypochromasia Anisocytosis Microcytosis ABG Methemoglobin VBG HCO3 VBG Total CO2 VBG Base Excess VBG Lactic Acid Carboxyhemoglobin Sodium Chloride Carbon Dioxide BUN Creatinine Glucose Calcium Alkaline Phosphatase Total Protein Albumin Urine Glucose (UA) Urine Mucus Meds: Medications Albuterol Sulfate (Ventolin) 2.5 mg NEB Q2HP PRN PRN Reason: Shortness Of Breath Artificial Tears (Refresh Celluvisc) 1 each OU QIDP PRN PRN Reason: dry eye(s) Aspirin (Aspirin) 81 mg PO HS [facility] Last Admin: 02/10/20 21:28 Dose: 81 mg Documented by: Atorvastatin Calcium (Lipitor) 40 mg PO [facility] Last Admin: 02/10/20 21:28 Dose: 40 mg Documented by: Ceftriaxone Sodium (Rocephin) 1 gm IV Q24H COUNT [facility]CLUDES [facility]; Protocol Last Admin: 02/11/20 09:38 Dose: 1 gm Documented by: Clopidogrel Bisulfate (Plavix) 75 mg PO DAILY [facility]CLUD[facility] Last Admin: 02/11/20 09:38 Dose: 75 mg Documented by: Dextrose (Dextrose 50%) 0 ml IV UD PRN PRN Reason: Hypoglycemia Last Admin: 02/10/20 09:49 Dose: 25 ml Documented by: Dextrose (Dextrose 50%) 0 ml IV UD PRN PRN Reason: Hypoglycemia Diagnostic Test (Pha) (Accu-Chek) 1 each FS [facility] Last Admin: 02/11/20 11:28 Dose: 1 each Documented by: Glucose (Insta-Glucose) 15 gm PO PRN PRN PRN Reason: Hypoglycemia Last Admin: 02/10/20 08:14 Dose: 15 gm Documented by: Glucose (Insta-Glucose) 15 gm PO PRN PRN PRN Reason: Hypoglycemia Heparin Sodium (Porcine) (Heparin) 5,000 unit SQ Q12 COUNT [facility]CLUDES [facility] Last Admin: 02/11/20 09:38 Dose: 5,000 unit Documented by: Insulin Glargine (Lantus) 25 unit SQ [facility] Insulin Human Lispro (Humalog) 0 unit SQ [facility]; Protocol Last Admin: 02/11/20 11:29 Dose: 12 unit Documented by: Nicotine (Nicoderm) 14 mg TOPICAL DAILY@1000 [facility]CLUD[facility] Last Admin: 02/11/20 09:38 Dose: 14 mg Documented by: Nitroglycerin (Nitrostat) 0.4 mg SL Q5MIN PRN PRN Reason: Chest Pain Tamsulosin HCl (Flomax) 0.4 mg PO [facility] Last Admin: 02/10/20 21:28 Dose: 0.4 mg Documented by: ABG Interpretation ABG results: 02/10/20 17:34 ABG Methemoglobin 0 L VBG pH 7.32 VBG pCO2 41.7 VBG pO2 33.8 VBG HCO3 21.1 L VBG Total CO2 22.3 L VBG O2 Saturation 55.5 VBG Base Excess -5 L A/P Narrative A/P Narrative: Assessment: 75 year old male with a history of severe PVD, CAD, CKD III, poorly controlled diabetes mellitus, EDI admitted for hyperosmolar hyperglycemic state and DERRELL on CKD. Workup revealed right elbow cellulitis as a possible cause of HHS and possible pneumonia. #Hyperosmolar hyperglycemic state, resolved #Diabetes mellitus type II Plan: Increase lantus to 30 units pm and correction humalog SSI to high SSI, HHS may have been precipitated by right elbow cellulitis vs nonadherence. Follow blood cultures, chest xray shows small right basilar infiltrate-possible aspiration related, EKG did not show any acute ischemic changes. Holding home Levemir and Metformin. #Possible pneumonia - developing right basal infiltrate on xray per radiology read on admission-on Ceftriaxone, concern for aspiration-speech consulted- dysphagia diet. #COPD -diagnosis per chart review, has nocturnal hypoxia-likely chronic, was not on inhaler for COPD-will start scheduled duonebs and prn albuterol and monitor for improvement. Check VBG for CO2 retention. #DERRELL on CKD - probably prerenal, UA was bland, continue IV fluid, follow renal function and urine output. Avoid nephrotoxic medications. #Right elbow cellulitis and wound (nonpurulent) - on Ceftriaxone which should cover for cellulitis and also for pneumonia, follow blood culture x2, wound care. No surgical intervention per wound surgery. #Peripheral vascular disease - history of severe peripheral vascular disease, recently has experienced progressive thigh pain with ambulation, bilateral lower extremity arterial duplex-no evidence of occlusion but heavy calcification present-radiology suggested CT abdomnal aortogram runoff however with recent DERRELL on CKD will hold on that for now as there is no evidence of acute ischemic limb. Continue home Aspirin, Plavix, and Atorvastatin. #Coronary artery disease - no recent chest pains, continue aspirin, plavix, statin, sublingual nitro prn. #Cognitive impairment - severe cognitive impairment per OT initial evaluation. #EDI - CPAP at bedtime. #Tobacco use disorder - nicotine patch and lozenges. #BPH - hold flomax for now due to hypotension. #DVT prophylaxis - heparin SQ. Time Spent With Patient Time: Total time spent is greater than 50% in coordination of care (as documented) at patient's floor/unit and/or counseling patient: QUALITY VTE Deep Vein Thrombosis/Pulmonary Embolism Present on Admission: No
[2020-02-11] MEDS ORDERED: DEXTROSE 31 GM ORAL.SUSP PO PRN ×3 (14:39→16:52)
[2020-02-11] MEDS ORDERED: DEXTROSE 50% 50 ML VIAL IV PRN ×3 (14:39→16:52)
[2020-02-11] MEDS ORDERED: ALBUTEROL SULFATE 2.5 MG/3 ML NEBULIZER NEB PRN (16:52)
[2020-02-11] MEDS ORDERED: NITROGLYCERIN 0.4 MG TAB.SUBL SL PRN (16:52)
[2020-02-11] MEDS ORDERED: CARBOXYMETHYLCELLULOSE SODIUM 1 EACH DROPER.GEL OU PRN (16:52)
[2020-02-11] MEDS ORDERED: INSULIN LISPRO 1 UNIT/0.01 ML UNIT SQ SCH (17:00)
[2020-02-11] MEDS: ASPIRIN 81 MG TAB.CHEW PO SCH (20:32)
[2020-02-11] MEDS: ATORVASTATIN 40 MG TABLET PO SCH (20:32)
[2020-02-11] MEDS: INSULIN GLARGINE, HUMAN 1 UNIT/0.01 ML SQ SCH (20:33)
[2020-02-11] MEDS ORDERED: TAMSULOSIN 0.4 MG CAPSULE PO SCH (21:00)
[2020-02-11] MEDS ORDERED: INSULIN GLARGINE, HUMAN 1 UNIT/0.01 ML SQ SCH ×2 (21:00)
[2020-02-12 07:46] LABS: ALT/SGPT 7 U/L (<40); AST/SGOT 14 U/L (<40); Albumin/Globulin Ratio 1.1 (1.0-2.3); Alkaline Phosphatase 121 U/L (39-117); Bilirubin,Total 0.4 mg/dL (0.1-1.0); Blood Urea Nitrogen 12 mg/dL (8-23); Calcium 8.6 mg/dL (8.6-10.4); Carbon Dioxide 21 mmol/L (22-30); Chloride 102 mmol/L (96-108); Globulin 2.8 gm/dL (2.2-3.7); Glomerular Filtration Rate 84; Glucose 130 mg/dL (70-105)
[2020-02-12] MEDS: INSULIN LISPRO 1 UNIT/0.01 ML UNIT SQ SCH ×5 (08:00→20:16)
--- NOTE | 2020-02-12 08:44 | Internal Med Progress Note ---
SUBJECTIVE Subjective Patient information: Note initiated : 02/12/20 at 8:35 am Service Date, if different from initiated Date: [] Patient: Yoni Santiago 75 y/o M admitted on 02/09/20 for hyperglycemia /hypotension. Chief Complaint: [] Interval history: Mr. Santiago is a 75 year old male with a history of CAD, severe PVD, CKD III, poorly controlled IDDM, EDI, extensive tobacco use history, s/p dual lead pacemaker pacemaker who presents to the ED for evaluation of acute on chronic kidney injury. He was sent to the ED by his news technical director after routine labs showed an increase in creatinine. In the ED the patient was also found to be severely hyperglycemic with a venous glucose of 875. There was no anion gap and beta hydroxybuterate was normal so hyperosmolar hyperglycemic state was diagnosed. The patient was started on IV fluid and an insulin drip. Other pertinent lab work revealed leukocytosis of 16.7 and a lactic acid level of 2.3. The cause of this is possibly cellulitis of the right elbow which developed after a recent fall. Admission chest xray also showed a developing right infiltrate, another possible cause of HHS. There is likely a component of nonadherence to his insulin regimen also. The patient denies recent chest pain, respiratory complaints, abdominal pain, sore throat, the patient does not have any more teeth. ROS is positive for bilateral thigh pain mostly during ambulation. He was admitted on 02/08 for management of HHS, DERRELL on CKD, and further workup into other possible causes of this illness. 02/09-off insulin drip, glucose stable with lantus and humalog SSI, wound surgery recommends no aspiration of fluid collection near right elbow, initially on Ancef then transitioned to Ceftriaxone for xray showing developing right basilar infiltrate, WBC down trending, having urinary retention-restarted home Flomax, coughing while eating-speech consulted, PT and OT consulted. 02/10-increased lantus 25-->30 for AM hyperglycemia and humalog SSI to high, DERRELL resolving, CT head negative for acute findings, severe cognitive impairment suggested by OT evaluation. 02/11-stable and progressing towards discharge, cognitive impairment will likely complicate discharge planning. Constitutional Vitals: Vital Signs Temp Pulse Resp BP Pulse Ox 98.7 F 72 22 128/64 94 02/12/20 03:43 02/12/20 03:43 02/12/20 03:43 02/12/20 03:43 02/12/20 03:43 Period Temp Pulse Resp BP Sys/Chaparro Pulse Ox Last 24 Hr 97.6 F-98.7 F 68-81 15-26 119-159/45-106 91-98 Intake and Output 02/11/20 02/12/20 02/12/20 21:59 05:59 13:59 Intake Total 840 120 Output Total 750 775 Balance 90 -655 Weight 86.908 kg Intake & Output: Intake & Output 02/11/20 02/12/20 02/12/20 21:59 05:59 13:59 Intake Total 840 120 Output Total 750 775 Balance 90 -655 Weight 86.908 kg Intake: Oral 840 120 Output: Void Amount 750 775 Other: Meal Dinner Percent of Meal Consumed 100% Feeding Ability Independent Urine Appearance Clear Clear Urine Color Bright Yellow Bright Yellow Urine Odor Normal Stool Size Smear Stool Color Brown Stool Consistency Soft Head Head exam: Present atraumatic and normal inspection Eye Eye exam: Present normal appearance ENT ENT exam: Present mucous membranes moist, normal exam and normal external ear exam Neck Neck exam: Present normal inspection Respiratory Respiratory exam: Present normal respiratory exam Cardiovascular Cardiovascular exam: Present normal rate and rhythm GI/Abdominal GI/Abdominal exam: Present normal bowel sounds Back Exam Back exam: Present normal inspection Neurological Exam Neurological exam: Present alert and altered Psychiatric Psychiatric exam: Present normal mood Skin Skin exam: Present intact and warm OBJ DATA Labs CBC & Chem 7: 02/11/20 05:22 02/12/20 05:23 Labs: Abnormal Lab Results 02/12/20 02/11/20 02/11/20 05:23 05:22 05:22 WBC RBC 6.11 H Hgb 13.4 L MCV 73.3 L MCH 21.9 L MCHC 29.9 L RDW 21.8 H Neut % (Auto) Lymph % (Auto) Lymph # (Auto) Seg Neutrophils % 83 H Lymphocytes % 10 L Absolute Neutrophils RBC Morphology Polychromasia Hypochromasia Anisocytosis Microcytosis ABG Methemoglobin VBG HCO3 VBG Total CO2 VBG Base Excess VBG Lactic Acid Carboxyhemoglobin Sodium Chloride Carbon Dioxide 21 L 20 L BUN Creatinine Glucose 130 H 206 H Calcium 7.8 L Alkaline Phosphatase 121 H 119 H Total Protein 5.8 L 5.6 L Albumin 3.0 L 2.8 L Urine Glucose (UA) Urine Mucus 02/10/20 02/10/20 02/10/20 17:34 05:36 05:36 WBC 14.1 H RBC 6.50 H Hgb MCV 72.5 L MCH 21.8 L MCHC 30.1 L RDW 21.3 H Neut % (Auto) Lymph % (Auto) Lymph # (Auto) Seg Neutrophils % 84 H Lymphocytes % 8 L Absolute Neutrophils RBC Morphology Abnormal A Polychromasia 1+ A Hypochromasia 1+ A Anisocytosis 2+ A Microcytosis 2+ A ABG Methemoglobin 0 L VBG HCO3 21.1 L VBG Total CO2 22.3 L VBG Base Excess -5 L VBG Lactic Acid Carboxyhemoglobin 3.4 H Sodium Chloride Carbon Dioxide BUN 25 H Creatinine 1.9 H Glucose 170 H Calcium 8.3 L Alkaline Phosphatase 147 H Total Protein Albumin 3.1 L Urine Glucose (UA) Urine Mucus 02/10/20 02/09/20 02/09/20 00:16 17:17 15:40 WBC RBC Hgb MCV MCH MCHC RDW Neut % (Auto) Lymph % (Auto) Lymph # (Auto) Seg Neutrophils % Lymphocytes % Absolute Neutrophils RBC Morphology Polychromasia Hypochromasia Anisocytosis Microcytosis ABG Methemoglobin VBG HCO3 VBG Total CO2 VBG Base Excess VBG Lactic Acid 2.3 H Carboxyhemoglobin Sodium 130 L Chloride Carbon Dioxide 20 L BUN 24 H Creatinine 1.8 H Glucose 170 H Calcium 8.2 L Alkaline Phosphatase 135 H Total Protein Albumin 3.0 L Urine Glucose (UA) >=500 A Urine Mucus Few A 02/09/20 02/09/20 15:40 15:40 WBC 16.7 H RBC 6.91 H Hgb MCV 77.3 L MCH 22.0 L MCHC 28.5 L RDW 22.3 H Neut % (Auto) 90.9 H Lymph % (Auto) 4.1 L Lymph # (Auto) 0.68 L Seg Neutrophils % Lymphocytes % Absolute Neutrophils 15.19 H RBC Morphology Polychromasia Hypochromasia Anisocytosis Microcytosis ABG Methemoglobin VBG HCO3 VBG Total CO2 VBG Base Excess VBG Lactic Acid Carboxyhemoglobin Sodium 123 L Chloride 84 L Carbon Dioxide BUN 24 H Creatinine 2.0 H Glucose 875 H* Calcium Alkaline Phosphatase 187 H Total Protein Albumin Urine Glucose (UA) Urine Mucus Meds: Medications Albuterol Sulfate (Ventolin) 2.5 mg NEB Q2HP PRN PRN Reason: Shortness Of Breath Artificial Tears (Refresh Celluvisc) 1 each OU QIDP PRN PRN Reason: dry eye(s) Aspirin (Aspirin) 81 mg PO HS [facility] Last Admin: 02/11/20 20:32 Dose: 81 mg Documented by: Atorvastatin Calcium (Lipitor) 40 mg PO HS [facility] Last Admin: 02/11/20 20:32 Dose: 40 mg Documented by: Ceftriaxone Sodium (Rocephin) 1 gm IV Q24H [facility]; Protocol Clopidogrel Bisulfate (Plavix) 75 mg PO DAILY [facility] Dextrose (Dextrose 50%) 0 ml IV UD PRN PRN Reason: Hypoglycemia Diagnostic Test (Pha) (Accu-Chek) 1 each FS [facility] Last Admin: 02/12/20 07:30 Dose: 1 each Documented by: Glucose (Insta-Glucose) 15 gm PO PRN PRN PRN Reason: Hypoglycemia Heparin Sodium (Porcine) (Heparin) 5,000 unit SQ Q12 [facility] Last Admin: 02/11/20 20:33 Dose: 5,000 unit Documented by: Insulin Glargine (Lantus) 30 unit SQ HS [facility] Last Admin: 02/11/20 20:33 Dose: 30 unit Documented by: Insulin Human Lispro (Humalog) 0 unit SQ [facility]; Protocol Last Admin: 02/12/20 08:00 Dose: Not Given Documented by: Nicotine (Nicoderm) 14 mg TOPICAL DAILY@1000 [facility] Nitroglycerin (Nitrostat) 0.4 mg SL Q5MIN PRN PRN Reason: Chest Pain Tamsulosin HCl (Flomax) 0.4 mg PO [facility] Last Admin: 02/11/20 20:32 Dose: 0.4 mg Documented by: ABG Interpretation ABG results: 02/10/20 17:34 ABG Methemoglobin 0 L VBG pH 7.32 VBG pCO2 41.7 VBG pO2 33.8 VBG HCO3 21.1 L VBG Total CO2 22.3 L VBG O2 Saturation 55.5 VBG Base Excess -5 L A/P Narrative A/P Narrative: Assessment: 75 year old male with a history of severe PVD, CAD, CKD III, poorly controlled diabetes mellitus, DEI admitted for hyperosmolar hyperglycemic state and DERRELL on CKD. Workup revealed right elbow cellulitis as a possible cause of HH S and possible pneumonia. #Hyperosmolar hyperglycemic state, resolved #Diabetes mellitus type II Plan: lantus 30 units pm and correction humalog SSI-high, the cause of HHS likely a combination of nonadherence vs not comprehending DM management (Levemir and Metformin) and right elbow cellulitis. Blood cultures-NGTD, chest xray showed small right basilar infiltrate-possible aspiration related, resolved on subsequent xray so not sure if really a pneumonia. Holding home Levemir and Metformin for now. #Right elbow cellulitis and wound (nonpurulent) - on Ceftriaxone which should cover for cellulitis and also for pneumonia, follow blood culture x2, wound care. No surgical intervention per wound surgery. Could be transitioned to oral abx when discharged. #Possible pneumonia - developing right basal infiltrate on xray per radiology read on admission-on Ceftriaxone, concern for aspiration-speech consulted- dysphagia diet. #COPD -diagnosis per chart review, has nocturnal hypoxia-likely chronic, was not on inhaler for COPD-prn albuterol. #DERRELL on CKD III- resolved with IVF-discontinued, probably prerenal, UA was bland. Avoid nephrotoxic medications. #Peripheral vascular disease - history of severe peripheral vascular disease, recently has experienced progressive thigh pain with ambulation, bilateral lower extremity arterial duplex-no evidence of occlusion but heavy calcification pre sent-radiology suggested CT abdomnal aortogram runoff however with recent DERRELL on CKD will hold on that for now as there is no evidence of acute ischemic limb. Continue home Aspirin, Plavix, and Atorvastatin. #Coronary artery disease - no recent chest pains, continue aspirin, plavix, statin, sublingual nitro prn. #Cognitive impairment - severe cognitive impairment per OT initial evaluation, will ask OT to repeat cognitive eval. #EDI - CPAP at bedtime. #Tobacco use disorder - nicotine patch and lozenges. #BPH w/ urinary retention - increase flomax to .8 mg daily, bladder scan and straight cath prn. #DVT prophylaxis - heparin SQ. Time Spent With Patient Time: Total time spent is greater than 50% in coordination of care (as documented) at patient's floor/unit and/or counseling patient: QUALITY VTE Deep Vein Thrombosis/Pulmonary Embolism Present on Admission: No
[2020-02-12 09:03] LABS: Anisocytosis 1+ (None Seen); Eosinophils % (Manual) 3 % (0-7); Hematocrit 45.4 % (41.0-55.0); Hemoglobin 13.8 g/dL (13.5-16.5); Hypochromasia 1+ (None Seen); Lymphocytes % 8 % (15-49); Mean Cell Volume 72.5 fL (80.0-100.0); Mean Corpuscular HGB Conc 30.4 g/dL (31.0-36.0); Microcytosis 1+ (None Seen); Monocytes % (Manual) 6 % (1-12); Platelet Count 321 K/mcL (140-440); Platelet Estimate NORMAL (Normal); RBC 6.26 M/mcL (4.50-5.90); RBC Morphology ABNORMAL (Normal); Reactive Lymphocytes 1 % (0-2); Segmented Neutrophils % 82 % (38-78); WBC 10.5 K/mcL (4.5-11.0)
[2020-02-12] MEDS: CLOPIDOGREL 75 MG TABLET PO SCH (09:27)
[2020-02-12] MEDS: cefTRIAXone 1 GM VIAL IV SCH (09:27)
[2020-02-12] MEDS: HEPARIN 5,000 UNIT/ML VIAL SQ SCH ×2 (09:27→20:24)
[2020-02-12] MEDS: NICOTINE 14 MG PATCH TOPICAL SCH (09:29)
[2020-02-12] MEDS ORDERED: OLANZapine 10 MG VIAL IM PRN (11:27)
[2020-02-12] MEDS ORDERED: OLANZapine 10 MG VIAL IM SCH (11:30)
[2020-02-12] MEDS: QUEtiapine 25 MG TABLET PO SCH (11:38)
--- NOTE | 2020-02-12 13:14 | Internal Med Progress Note ---
SUBJECTIVE Subjective Patient information: Note initiated : 02/12/20 at 1:05 pm Service Date, if different from initiated Date: [] Patient: Yoni Santiago 75 y/o M admitted on 02/09/20 for hyperglycemia /hypotension. Chief Complaint: [] Interval history: Mr. Santiago is a 75 year old male with a history of CAD, severe PVD, CKD III, poorly controlled IDDM, EDI, extensive tobacco use history, s/p dual lead pacemaker pacemaker who presents to the ED for evaluation of acute on chronic kidney injury. He was sent to the ED by his medical office receptionist after routine labs showed an increase in creatinine. In the ED the patient was also found to be severely hyperglycemic with a venous glucose of 875. There was no anion gap and beta hydroxybuterate was normal so hyperosmolar hyperglycemic state was diagnosed. The patient was started on IV fluid and an insulin drip. Other pertinent lab work revealed leukocytosis of 16.7 and a lactic acid level of 2.3. The cause of this is possibly cellulitis of the right elbow which developed after a recent fall. Admission chest xray also showed a developing right infiltrate, another possible cause of HHS. There is likely a component of nonadherence to his insulin regimen also. The patient denies recent chest pain, respiratory complaints, abdominal pain, sore throat, the patient does not have any more teeth. ROS is positive for bilateral thigh pain mostly during ambulation. He was admitted on 02/08 for management of HHS, DERRELL on CKD, and further workup into other possible causes of this illness. 02/09-off insulin drip, glucose stable with lantus and humalog SSI, wound surgery recommends no aspiration of fluid collection near right elbow, initially on Ancef then transitioned to Ceftriaxone for xray showing developing right basilar infiltrate, WBC down trending, having urinary retention-restarted home Flomax, coughing while eating-speech consulted, PT and OT consulted. 02/10-increased lantus 25-->30 for AM hyperglycemia and humalog SSI to high, DERRELL resolving, CT head negative for acute findings, severe cognitive impairment suggested by OT evaluation. 02/11-stable and progressing towards discharge, cognitive impairment will likely complicate discharge planning. *The patient wants to leave AMA and wants to drive his truck home. I told him I am concerned about him driving a vehicle and also taking care of himself. I don't think the patient has capacity right now. I discussed my concerns with his son, Ethan Santiago, who also has concerns about the patient's cognitive status. The initial OT cognitive evaluation suggested severe cognitive impairment. He has been having difficulty managing basic activities of daily living according to his son. I suspect the patient has undiagnosed dementia. His son is his medical decision maker at this point, he is ok with us keeping the patient here until a safe discharge can be arranged. 02/12 Constitutional Vitals: Vital Signs Temp Pulse Resp BP Pulse Ox 97.8 F 68 18 149/63 94 02/12/20 08:00 02/12/20 08:00 02/12/20 08:00 02/12/20 10:25 02/12/20 08:00 Period Temp Pulse Resp BP Sys/Chaparro Pulse Ox Last 24 Hr 97.6 F-98.7 F 68-81 16-22 119-159/58-106 92-97 Intake and Output 02/11/20 02/12/20 02/12/20 21:59 05:59 13:59 Intake Total 840 120 Output Total 750 775 Balance 90 -655 Weight 86.908 kg Intake & Output: Intake & Output 02/11/20 02/12/20 02/12/20 21:59 05:59 13:59 Intake Total 840 120 Output Total 750 775 Balance 90 -655 Weight 86.908 kg Intake: Oral 840 120 Output: Void Amount 750 775 Other: Meal Dinner Percent of Meal Consumed 100% Feeding Ability Independent Urine Appearance Clear Clear Urine Color Bright Yellow Bright Yellow Urine Odor Normal Stool Size Smear Stool Color Brown Stool Consistency Soft Exam: General: Alert, Awake, No acute Distress Eyes/N/T: EOMI, Head/Neck: neck supple, CV: RRR, No murmurs, Pulm: Clear b/l, no wheezing/rhonchi/rales Abd: soft, nontender, +BS x4 Ext: no clubbing/cyanosis/edema Neuro: Alert, no focal deficits, moves all extremities, Skin: warm/dry OBJ DATA Labs CBC & Chem 7: 02/12/20 05:23 02/12/20 05:23 Labs: Abnormal Lab Results 02/12/20 02/12/20 02/11/20 05:23 05:23 05:22 WBC RBC 6.26 H Hgb MCV 72.5 L MCH 22.0 L MCHC 30.4 L RDW 22.0 H Neut % (Auto) Lymph % (Auto) Lymph # (Auto) Seg Neutrophils % 82 H Lymphocytes % 8 L Absolute Neutrophils RBC Morphology Abnormal A Polychromasia Hypochromasia 1+ A Anisocytosis 1+ A Microcytosis 1+ A ABG Methemoglobin VBG HCO3 VBG Total CO2 VBG Base Excess VBG Lactic Acid Carboxyhemoglobin Sodium Chloride Carbon Dioxide 21 L 20 L BUN Creatinine Glucose 130 H 206 H Calcium 7.8 L Alkaline Phosphatase 121 H 119 H Total Protein 5.8 L 5.6 L Albumin 3.0 L 2.8 L Urine Glucose (UA) Urine Mucus 02/11/20 02/10/20 02/10/20 05:22 17:34 05:36 WBC RBC 6.11 H Hgb 13.4 L MCV 73.3 L MCH 21.9 L MCHC 29.9 L RDW 21.8 H Neut % (Auto) Lymph % (Auto) Lymph # (Auto) Seg Neutrophils % 83 H Lymphocytes % 10 L Absolute Neutrophils RBC Morphology Polychromasia Hypochromasia Anisocytosis Microcytosis ABG Methemoglobin 0 L VBG HCO3 21.1 L VBG Total CO2 22.3 L VBG Base Excess -5 L VBG Lactic Acid Carboxyhemoglobin 3.4 H Sodium Chloride Carbon Dioxide BUN 25 H Creatinine 1.9 H Glucose 170 H Calcium 8.3 L Alkaline Phosphatase 147 H Total Protein Albumin 3.1 L Urine Glucose (UA) Urine Mucus 02/10/20 02/10/20 02/09/20 05:36 00:16 17:17 WBC 14.1 H RBC 6.50 H Hgb MCV 72.5 L MCH 21.8 L MCHC 30.1 L RDW 21.3 H Neut % (Auto) Lymph % (Auto) Lymph # (Auto) Seg Neutrophils % 84 H Lymphocytes % 8 L Absolute Neutrophils RBC Morphology Abnormal A Polychromasia 1+ A Hypochromasia 1+ A Anisocytosis 2+ A Microcytosis 2+ A ABG Methemoglobin VBG HCO3 VBG Total CO2 VBG Base Excess VBG Lactic Acid Carboxyhemoglobin Sodium 130 L Chloride Carbon Dioxide 20 L BUN 24 H Creatinine 1.8 H Glucose 170 H Calcium 8.2 L Alkaline Phosphatase 135 H Total Protein Albumin 3.0 L Urine Glucose (UA) >=500 A Urine Mucus Few A 02/09/20 02/09/20 02/09/20 15:40 15:40 15:40 WBC 16.7 H RBC 6.91 H Hgb MCV 77.3 L MCH 22.0 L MCHC 28.5 L RDW 22.3 H Neut % (Auto) 90.9 H Lymph % (Auto) 4.1 L Lymph # (Auto) 0.68 L Seg Neutrophils % Lymphocytes % Absolute Neutrophils 15.19 H RBC Morphology Polychromasia Hypochromasia Anisocytosis Microcytosis ABG Methemoglobin VBG HCO3 VBG Total CO2 VBG Base Excess VBG Lactic Acid 2.3 H Carboxyhemoglobin Sodium 123 L Chloride 84 L Carbon Dioxide BUN 24 H Creatinine 2.0 H Glucose 875 H* Calcium Alkaline Phosphatase 187 H Total Protein Albumin Urine Glucose (UA) Urine Mucus Meds: Medications Albuterol Sulfate (Ventolin) 2.5 mg NEB Q2HP PRN PRN Reason: Shortness Of Breath Artificial Tears (Refresh Celluvisc) 1 each OU QIDP PRN PRN Reason: dry eye(s) Aspirin (Aspirin) 81 mg PO HS [facility] Last Admin: 02/11/20 20:32 Dose: 81 mg Documented by: Atorvastatin Calcium (Lipitor) 40 mg PO HS [facility] Last Admin: 02/11/20 20:32 Dose: 40 mg Documented by: Ceftriaxone Sodium (Rocephin) 1 gm IV Q24H [facility]; Protocol Last Admin: 02/12/20 09:27 Dose: 1 gm Documented by: Clopidogrel Bisulfate (Plavix) 75 mg PO DAILY [facility] Last Admin: 02/12/20 09:27 Dose: 75 mg Documented by: Dextrose (Dextrose 50%) 0 ml IV UD PRN PRN Reason: Hypoglycemia Diagnostic Test (Pha) (Accu-Chek) 1 each FS ACHS [facility] Last Admin: 02/12/20 11:40 Dose: 1 each Documented by: Glucose (Insta-Glucose) 15 gm PO PRN PRN PRN Reason: Hypoglycemia Heparin Sodium (Porcine) (Heparin) 5,000 unit SQ Q12 [facility] Last Admin: 02/12/20 09:27 Dose: 5,000 unit Documented by: Insulin Glargine (Lantus) 30 unit SQ HS [facility] Last Admin: 02/11/20 20:33 Dose: 30 unit Documented by: Insulin Human Lispro (Humalog) 0 unit SQ ACHS [facility]; Protocol Last Admin: 02/12/20 11:44 Dose: 12 unit Documented by: Nicotine (Nicoderm) 14 mg TOPICAL DAILY@1000 [facility] Last Admin: 02/12/20 09:29 Dose: 14 mg Documented by: Nitroglycerin (Nitrostat) 0.4 mg SL Q5MIN PRN PRN Reason: Chest Pain Olanzapine (Zyprexa) 5 mg IM Q6HP PRN PRN Reason: agitation Quetiapine Fumarate (Seroquel) 25 mg PO DAILY [facility] Last Admin: 02/12/20 11:38 Dose: 25 mg Documented by: Tamsulosin HCl (Flomax) 0.8 mg PO HS [facility] ABG Interpretation ABG results: 02/10/20 17:34 ABG Methemoglobin 0 L VBG pH 7.32 VBG pCO2 41.7 VBG pO2 33.8 VBG HCO3 21.1 L VBG Total CO2 22.3 L VBG O2 Saturation 55.5 VBG Base Excess -5 L A/P Narrative A/P Narrative: A: *Hyperosmolar hyperglycemic state, resolved -cause likely combination of nonadherence vs not comprehending DM management (Levemir and Metformin) and right elbow cellulitis. *Diabetes mellitus type II *Right elbow cellulitis and wound (nonpurulent) -No surgical intervention per wound surgery *Possible pneumonia - developing right basal infiltrate on xray per radiology read on admission -concern for aspiration *COPD: has nocturnal hypoxia-likely chronic, was not on inhaler for COPD-prn albuterol. *DERRELL on CKD III: resolved with IVF *PVD: history of severe peripheral vascular disease, recently has experienced progressive thigh pain with ambulation, bilateral lower extremity arterial duplex-no evidence of occlusion but heavy calcification present-radiology suggested CT abdomnal aortogram runoff however with recent DERRELL on CKD will hold on that for now as there is no evidence of acute ischemic limb. *CAD: no recent chest pains *Dementia with h/o anoxic brain injury: history from family consistent with -CT with mild atrophy and chronic ischemic changes *EDI: CPAP at bedtime. *Tobacco use disorder: *BPH w/ urinary retention: Plan -lantus 30 units pm and correction humalog SSI -xray showed small right basilar infiltrate-possible aspiration related, resolved on subsequent xray so not sure if really a pneumonia -Holding home Levemir and Metformin for now. -No surgical intervention per wound surgery. Could be transitioned to oral abx when discharged. -speech consulted-dysphagia diet. -prn albuterol. -Continue home Aspirin, Plavix, and Atorvastatin. -pt/ot -cpap -nicotine patch and lozenges. -increase flomax to .8 mg daily, bladder scan and straight cath prn. -CM for placement -ppx: heparin SQ. full code Time Spent With Patient Time: Total time spent is greater than 50% in coordination of care (as documented) at patient's floor/unit and/or counseling patient: QUALITY VTE Deep Vein Thrombosis/Pulmonary Embolism Present on Admission: No
[2020-02-12] MEDS: ATORVASTATIN 40 MG TABLET PO SCH (20:22)
[2020-02-12] MEDS: ASPIRIN 81 MG TAB.CHEW PO SCH (20:23)
[2020-02-12] MEDS: TAMSULOSIN 0.4 MG CAPSULE PO SCH (20:23)
[2020-02-12] MEDS: INSULIN GLARGINE, HUMAN 1 UNIT/0.01 ML SQ SCH (20:24)
--- NOTE | 2020-02-13 07:41 | Internal Med Progress Note ---
SUBJECTIVE Subjective Patient information: Note initiated : 02/13/20 at 7:35 am Service Date, if different from initiated Date: [] Patient: Yoni Santiago 75 y/o M admitted on 02/09/20 for hyperglycemia /hypotension. Chief Complaint: [] Interval history: Mr. Santiago is a 75 year old male with a history of CAD, severe PVD, CKD III, poorly controlled IDDM, EDI, extensive tobacco use history, s/p dual lead pacemaker pacemaker who presents to the ED for evaluation of acute on chronic kidney injury. He was sent to the ED by his housekeeping room attendant after routine labs showed an increase in creatinine. In the ED the patient was also found to be severely hyperglycemic with a venous glucose of 875. There was no anion gap and beta hydroxybuterate was normal so hyperosmolar hyperglycemic state was diagnosed. The patient was started on IV fluid and an insulin drip. Other pertinent lab work revealed leukocytosis of 16.7 and a lactic acid level of 2.3. The cause of this is possibly cellulitis of the right elbow which developed after a recent fall. Admission chest xray also showed a developing right infiltrate, another possible cause of HHS. There is likely a component of nonadherence to his insulin regimen also. The patient denies recent chest pain, respiratory complaints, abdominal pain, sore throat, the patient does not have any more teeth. ROS is positive for bilateral thigh pain mostly during ambulation. He was admitted on 02/08 for management of HHS, DERRELL on CKD, and further workup into other possible causes of this illness. 02/09-off insulin drip, glucose stable with lantus and humalog SSI, wound surgery recommends no aspiration of fluid collection near right elbow, initially on Ancef then transitioned to Ceftriaxone for xray showing developing right basilar infiltrate, WBC down trending, having urinary retention-restarted home Flomax, coughing while eating-speech consulted, PT and OT consulted. 02/10-increased lantus 25-->30 for AM hyperglycemia and humalog SSI to high, DERRELL resolving, CT head negative for acute findings, severe cognitive impairment suggested by OT evaluation. 02/11-stable and progressing towards discharge, cognitive impairment will likely complicate discharge planning. *The patient wants to leave AMA and wants to drive his truck home. I told him I am concerned about him driving a vehicle and also taking care of himself. I don't think the patient has capacity right now. I discussed my concerns with his son, Ethan Santiago, who also has concerns about the patient's cognitive status. The initial OT cognitive evaluation suggested severe cognitive impairment. He has been having difficulty managing basic activities of daily living according to his son. I suspect the patient has undiagnosed dementia. His son is his medical decision maker at this point, he is ok with us keeping the patient here until a safe discharge can be arranged. 02/12 No overnight event or new complaints. Elevated blood glucose and increased insulin. Treating insulin, awaiting placement needs and possible discharge tomorrow. Constitutional Vitals: Vital Signs Temp Pulse Resp BP Pulse Ox 97.0 F 68 20 133/58 94 02/13/20 04:00 02/12/20 20:00 02/13/20 04:00 02/13/20 04:00 02/13/20 04:00 Period Temp Pulse Resp BP Sys/Chaparro Pulse Ox Last 24 Hr 97.0 F-98.6 F 61-68 -20 133-179/57-74 94-94 Intake and Output 02/12/20 02/13/20 02/13/20 21:59 05:59 13:59 Intake Total 940 0 Output Total 900 650 Balance 40 -650 Weight 86.591 kg Intake & Output: Intake & Output 02/12/20 02/13/20 02/13/20 21:59 05:59 13:59 Intake Total 940 0 Output Total 900 650 Balance 40 -650 Weight 86.591 kg Intake: Oral 940 0 Output: Void Amount 900 650 Other: Meal Lunch Percent of Meal Consumed 100% Exam: General: Alert, Awake, No acute Distress Eyes/N/T: EOMI, Head/Neck: neck supple, CV: RRR, No murmurs, Pulm: Clear b/l, no wheezing/rhonchi/rales Abd: soft, nontender, +BS x4 Ext: no clubbing/cyanosis/edema Neuro: Alert, no focal deficits, moves all extremities, Skin: warm/dry OBJ DATA Labs CBC & Chem 7: 02/12/20 05:23 02/12/20 05:23 Labs: Abnormal Lab Results 02/12/20 02/12/20 02/11/20 05:23 05:23 05:22 WBC RBC 6.26 H Hgb MCV 72.5 L MCH 22.0 L MCHC 30.4 L RDW 22.0 H Seg Neutrophils % 82 H Lymphocytes % 8 L RBC Morphology Abnormal A Polychromasia Hypochromasia 1+ A Anisocytosis 1+ A Microcytosis 1+ A ABG Methemoglobin VBG HCO3 VBG Total CO2 VBG Base Excess Carboxyhemoglobin Carbon Dioxide 21 L 20 L Glucose 130 H 206 H Calcium 7.8 L Alkaline Phosphatase 121 H 119 H Total Protein 5.8 L 5.6 L Albumin 3.0 L 2.8 L 02/11/20 02/10/20 02/10/20 05:22 17:34 05:36 WBC 14.1 H RBC 6.11 H 6.50 H Hgb 13.4 L MCV 73.3 L 72.5 L MCH 21.9 L 21.8 L MCHC 29.9 L 30.1 L RDW 21.8 H 21.3 H Seg Neutrophils % 83 H 84 H Lymphocytes % 10 L 8 L RBC Morphology Abnormal A Polychromasia 1+ A Hypochromasia 1+ A Anisocytosis 2+ A Microcytosis 2+ A ABG Methemoglobin 0 L VBG HCO3 21.1 L VBG Total CO2 22.3 L VBG Base Excess -5 L Carboxyhemoglobin 3.4 H Carbon Dioxide Glucose Calcium Alkaline Phosphatase Total Protein Albumin Meds: Medications Albuterol Sulfate (Ventolin) 2.5 mg NEB Q2HP PRN PRN Reason: Shortness Of Breath Artificial Tears (Refresh Celluvisc) 1 each OU QIDP PRN PRN Reason: dry eye(s) Aspirin (Aspirin) 81 mg PO HS [facility] Last Admin: 02/12/20 20:23 Dose: 81 mg Documented by: Atorvastatin Calcium (Lipitor) 40 mg PO HS [facility] Last Admin: 02/12/20 20:22 Dose: 40 mg Documented by: Ceftriaxone Sodium (Rocephin) 1 gm IV Q24H [facility]; Protocol Last Admin: 02/12/20 09:27 Dose: 1 gm Documented by: Clopidogrel Bisulfate (Plavix) 75 mg PO DAILY [facility] Last Admin: 02/12/20 09:27 Dose: 75 mg Documented by: Dextrose (Dextrose 50%) 0 ml IV UD PRN PRN Reason: Hypoglycemia Diagnostic Test (Pha) (Accu-Chek) 1 each FS ACHS [facility] Last Admin: 02/12/20 20:15 Dose: 1 each Documented by: Glucose (Insta-Glucose) 15 gm PO PRN PRN PRN Reason: Hypoglycemia Heparin Sodium (Porcine) (Heparin) 5,000 unit SQ Q12 [facility] Last Admin: 02/12/20 20:24 Dose: 5,000 unit Documented by: Insulin Glargine (Lantus) 30 unit SQ HS [facility] Last Admin: 02/12/20 20:24 Dose: 30 unit Documented by: Insulin Human Lispro (Humalog) 0 unit SQ [facility]; Protocol Last Admin: 02/12/20 20:16 Dose: 12 unit Documented by: Nicotine (Nicoderm) 14 mg TOPICAL DAILY@1000 [facility] Last Admin: 02/12/20 09:29 Dose: 14 mg Documented by: Nitroglycerin (Nitrostat) 0.4 mg SL Q5MIN PRN PRN Reason: Chest Pain Olanzapine (Zyprexa) 5 mg IM Q6HP PRN PRN Reason: agitation Quetiapine Fumarate (Seroquel) 25 mg PO DAILY [facility] Last Admin: 02/12/20 11:38 Dose: 25 mg Documented by: Tamsulosin HCl (Flomax) 0.8 mg PO [facility] Last Admin: 02/12/20 20:23 Dose: 0.8 mg Documented by: ABG Interpretation ABG results: 02/10/20 17:34 ABG Methemoglobin 0 L VBG pH 7.32 VBG pCO2 41.7 VBG pO2 33.8 VBG HCO3 21.1 L VBG Total CO2 22.3 L VBG O2 Saturation 55.5 VBG Base Excess -5 L A/P Narrative A/P Narrative: A: *Hyperosmolar hyperglycemic state, resolved -cause likely combination of nonadherence vs not comprehending DM management (Levemir and Metformin) and right elbow cellulitis. *Diabetes mellitus type II: uncontrolled, A1c 11.3 *Right elbow cellulitis and wound (nonpurulent) -No surgical intervention per wound surgery *Possible pneumonia - developing right basal infiltrate on xray per radiology read on admission -concern for aspiration *COPD: has nocturnal hypoxia-likely chronic, was not on inhaler for COPD-prn albuterol. *DERRELL on CKD III: resolved with IVF *PVD: history of severe peripheral vascular disease, recently has experienced progressive thigh pain with ambulation, bilateral lower extremity arterial duplex-no evidence of occlusion but heavy calcification present-radiology suggested CT abdomnal aortogram runoff however with recent DERRELL on CKD will hold on that for now as there is no evidence of acute ischemic limb. *CAD: no recent chest pains *Dementia with h/o anoxic brain injury: history from family consistent with -CT with mild atrophy and chronic ischemic changes *EDI: CPAP at bedtime. *Tobacco use disorder: *BPH w/ urinary retention: Plan -increase home basal insulin(titrate), ssi SSI, restart metformin -xray showed small right basilar infiltrate-possible aspiration related, resolved on subsequent xray so not sure if really a pneumonia -No surgical intervention per wound surgery. Could be transitioned to oral abx when discharged. -speech consulted-dysphagia diet. -Continue home Aspirin, Plavix, and Atorvastatin. -pt/ot -cpap -nicotine patch and lozenges. -increase flomax to .8 mg daily, bladder scan and straight cath prn. -CM for placement -ppx: heparin SQ. full code Time Spent With Patient Time: Total time spent is greater than 50% in coordination of care (as documented) at patient's floor/unit and/or counseling patient: QUALITY VTE Deep Vein Thrombosis/Pulmonary Embolism Present on Admission: No
[2020-02-13] MEDS: metFORMIN 500 MG TABLET PO SCH ×2 (07:56→17:55)
[2020-02-13] MEDS: INSULIN LISPRO 1 UNIT/0.01 ML UNIT SQ SCH ×4 (07:59→21:34)
[2020-02-13] MEDS: CLOPIDOGREL 75 MG TABLET PO SCH (10:33)
[2020-02-13] MEDS: QUEtiapine 25 MG TABLET PO SCH (10:33)
[2020-02-13] MEDS: HEPARIN 5,000 UNIT/ML VIAL SQ SCH ×2 (10:33→21:36)
[2020-02-13] MEDS: NICOTINE 14 MG PATCH TOPICAL SCH ×2 (10:33→10:47)
[2020-02-13] MEDS: cefTRIAXone 1 GM VIAL IV SCH (10:38)
--- NOTE | 2020-02-13 10:45 | Discharge Summary ---
Discharge Provider Provider Patient information: Note initiated : 02/13/20 at 10:44 am Service Date, if different from initiated Date: [] Patient: Yoni Santiago 75 y/o M admitted on 02/09/20 for hyperglycemia/hypotension. Chief Complaint: [] Date of admission: 02/09/20 23:47 Primary care physician: PCP No Consults: 02/09/20 Consult to Physician [CONS] Stat Comment: Consulting Provider: John Wharton Reason For Exam: Physician to Consult 02/10/20 12:55 Consult to Physician [CONS] Routine Comment: Right elbow wound Consulting Provider: Eliel Rea Reason For Exam: Physician to Consult 02/13/20 10:19 Consult to Physician [CONS] Routine Comment: Consulting Provider: [facility] Reason For Exam: Physician to Consult Discharge Meds Discharge Medications Home Medications atorvastatin 40 mg PO HS 12/16/16 [History Confirmed 02/10/20 Last Taken Unknown] clopidogrel 75 mg PO DAILY 12/16/16 [History Confirmed 02/10/20 Last Taken Unknown] coenzyme Q10 100 mg capsule 100 mg PO QDAY 11/05/18 [History Confirmed 02/10/20 Last Taken Unknown] metformin 500 mg tablet 1,000 mg PO BID 11/05/18 [History Confirmed 02/10/20 Last Taken Unknown] nitroglycerin 0.4 mg sublingual tablet 0.4 mg SUBLINGUAL Q5-15M PRN 11/05/18 [History Confirmed 02/10/20 Last Taken Unknown] aspirin 81 mg tablet,delayed release 81 mg PO HS tab 11/25/18 [History Confirmed 02/10/20 Last Taken Unknown] carboxymethylcellulose sodium 0.5 % eye drops 1 drp OPHTHALMIC 4-6XD PRN #30 ml 06/17/19 [Rx Confirmed 02/10/20 Last Taken Unknown] urea 25 %-alpha hydroxy acids 6 % topical cream See Rx Instructions TOPICAL BID g 06/24/19 [History Confirmed 02/10/20 Last Taken Unknown] Levemir FlexTouch U-100 Insuln 35 unit SUB-Q QDAY #3 ml 02/13/20 [Rx Last Taken Unknown] Vitamin D3 2,000 units PO DAILY 02/13/20 [History Confirmed 02/13/20 Last Taken Unknown] cephalexin [Keflex] 500 mg PO QID #8 cap 02/13/20 [Rx Last Taken Unknown] ketorolac [Acular] 1 drp OPHTHALMIC (EYE) TID 02/13/20 [History Confirmed 02/13/20 Last Taken Unknown] ketotifen fumarate [Alaway] 1 drp OPHTHALMIC (EYE) BID 02/13/20 [History Confirmed 02/13/20 Last Taken Unknown] levothyroxine 25 mcg PO QDAY 02/13/20 [History Confirmed 02/13/20 Last Taken Unknown] lisinopril 10 mg PO QDAY 02/13/20 [History Confirmed 02/13/20 Last Taken Unknown] pen needle, diabetic [TechLITE Pen Needle] 02/13/20 [History Confirmed 02/13/20 Last Taken Unknown] tamsulosin 0.8 mg PO HS #30 cap 02/13/20 [Rx Last Taken Unknown] COURSE [facility] [address] [place] [address] AvenueDOB: 1945 [address]Service Date:02/09/20 Admit Date: 02/09/20 [place], [place] [address] # [id number] Clay Medina P. DYeniferO. MR #: [id number] Internal Med Progress Note Signed with Addenda ADDENDUM A: *Hyperosmolar hyperglycemic state, resolved -cause likely combination of nonadherence vs not comprehending DM management (Levemir and Metformin) and right elbow cellulitis. *Diabetes mellitus type II: uncontrolled, A1c 11.3 *Right elbow cellulitis and wound (nonpurulent) -No surgical intervention per wound surgery *Possible pneumonia - developing right basal infiltrate on xray per radiology read on admission -concern for aspiration *Oropharyngeal Dysphagia: *COPD: has nocturnal hypoxia-likely chronic, was not on inhaler for COPD-prn albuterol. *DERRELL on CKD III: resolved with IVF *PVD: history of severe peripheral vascular disease, recently has experienced progressive thigh pain with ambulation, bilateral lower extremity arterial duplex-no evidence of occlusion but heavy calcification present-radiology suggested CT abdomnal aortogram runoff however with recent DERRELL on CKD will hold on that for now as there is no evidence of acute ischemic limb. *CAD: no recent chest pains *Dementia with h/o anoxic brain injury: history from family consistent with -CT with mild atrophy and chronic ischemic changes -SLUMS<20 *EDI: CPAP at bedtime. *Tobacco use disorder: *BPH w/ urinary retention: Plan -increase home basal insulin(titrate), ssi SSI, restart metformin -xray showed small right basilar infiltrate-possible aspiration related, resolved on subsequent xray so not sure if really a pneumonia -No surgical intervention per wound surgery. Could be transitioned to oral abx when discharged. -speech consulted-dysphagia diet. -Continue home Aspirin, Plavix, and Atorvastatin. -pt/ot -cpap -nicotine patch and lozenges. -increase flomax to .8 mg daily, bladder scan and straight cath prn. -CM for placement -ppx: heparin SQ. full code Amended By: Clay Medina D.O. 02/13/20952 202/13/20952 SUBJECTIVE Interval history: Mr. Santiago is a 75 year old male with a history of CAD, severe PVD, CKD III, poorly controlled IDDM, EDI, extensive tobacco use history, s/p dual lead pacemaker pacemaker who presents to the ED for evaluation of acute on chronic kidney injury. He was sent to the ED by his veneer clipper helper after routine labs showed an increase in creatinine. In the ED the patient was also found to be severely hyperglycemic with a venous glucose of 875. There was no anion gap and beta hydroxybuterate was normal so hyperosmolar hyperglycemic state was diagnosed. The patient was started on IV fluid and an insulin drip. Other [facility] lab work revealed leukocytosis of 16.7 and a lactic acid level of 2.3. The cause of this is possibly cellulitis of the right elbow which developed after a recent fall. Admission chest xray also showed a developing right infiltrate, another possible cause of HHS. There is likely a component of nonadherence to his insulin regimen also. The patient denies recent chest pain, respiratory complaints, abdominal pain, sore throat, the patient does not have any more teeth. ROS is positive for bilateral thigh pain mostly during ambulation. He was admitted on 02/08 for management of HHS, DERRELL on CKD, and further workup into other possible causes of this illness. 02/09-off insulin drip, glucose stable with lantus and humalog SSI, wound surgery recommends no aspiration of fluid collection near right elbow, initially on Ancef then transitioned to Ceftriaxone for xray showing developing right basilar infiltrate, WBC down trending, having urinary retention-restarted home Flomax, coughing while eating-speech consulted, PT and OT consulted. 02/10-increased lantus 25-->30 for AM hyperglycemia and humalog SSI to high, DERRELL resolving, CT head negative for acute findings, severe cognitive impairment suggested by OT evaluation. 02/11-stable and progressing towards discharge, cognitive impairment will likely complicate discharge planning. *The patient wants to leave AMA and wants to drive his truck home. I told him I am concerned about him driving a vehicle and also taking care of himself. I don't think the patient has capacity right now. I discussed my concerns with his son, Ethan Santiago, who also has concerns about the patient's cognitive status. The initial OT cognitive evaluation suggested severe cognitive impairment. He has been having difficulty managing basic activities of daily living according to his son. I suspect the patient has undiagnosed dementia. His son is his medical decision maker at this point, he is ok with us keeping the patient here until a safe discharge can be arranged. 02/12 No overnight event or new complaints. Elevated blood glucose and increased insulin. Treating insulin, awaiting placement needs and possible discharge tomorrow. A: *Hyperosmolar hyperglycemic state, resolved -likely combination of nonadherence vs not comprehending DM mgmnt (Levemir/Metformin) & right elbow cellulitis. *Diabetes mellitus type II: uncontrolled, A1c 11.3 *Right elbow cellulitis and wound (nonpurulent) -No surgical intervention per wound surgery *Possible pneumonia - developing right basal infiltrate on xray per radiology read on admission -concern for aspiration *Oropharyngeal Dysphagia: *COPD: has nocturnal hypoxia-likely chronic, was not on inhaler for COPD-prn albuterol. *DERRELL on CKD III: resolved with IVF *PVD: history of severe peripheral vascular disease, recently has experienced progressive thigh pain with ambulation, bilateral lower extremity arterial duplex-no evidence of occlusion but heavy calcification present-radiology suggested CT abdomnal aortogram runoff however with recent DERRELL on CKD will hold on that for now as there is no evidence of acute ischemic limb. *CAD: no recent chest pains *Dementia with h/o anoxic brain injury: history from family consistent with -CT with mild atrophy and chronic ischemic changes -SLUMS<20 *EDI: CPAP at bedtime. *Tobacco use disorder: *BPH w/ urinary retention: Discharge diagnosis: HHS diabetes right elbow cellulitis possible aspiration pneumonia Secondary discharge diagnosis: Oropharyngeal dysphagia COPD acute kidney injury peripheral vascular disease CAD dementia EDI tobacco Time Spent with Patient Time attestation: Total time spent providing and/or coordinating discharge services: Time spent: Greater than 30 minutes EXAM Constitutional Vitals: Temp Pulse Resp BP Pulse Ox 97.8 F 84 18 116/66 95 02/13/20 08:00 02/13/20 08:00 02/13/20 08:00 02/13/20 08:00 02/13/20 08:00 Discharge Data Data Completed and Pending Labs on day of discharge: Labs from last 24 hours 02/13/20 05:53 Sodium Pending Potassium Pending Chloride Pending Carbon Dioxide Pending Anion Gap Pending BUN Pending Creatinine Pending GFR Calculation Pending Glucose Pending Uric Acid Pending Calcium Pending Phosphorus Pending Magnesium Pending Total Bilirubin Pending Direct Bilirubin Pending GGT Pending AST Pending ALT Pending Alkaline Phosphatase Pending Lactate Dehydrogenase Pending Total Protein Pending Albumin Pending Globulin Pending Albumin/Globulin Ratio Pending Triglycerides Pending Preliminary micro results at discharge 02/09/20 21:20 Blood Culture - Preliminary Blood 02/09/20 21:12 Blood Culture - Preliminary Blood Discharge Plan Patient/Caregiver Discharge Instructions Activity: increase activity as tolerated Diet: Consistent Carbohydrate and Dysphagia Level 6 Soft & Bite-Sized Foods Activity Restrictions/Additional Instructions: Follow-up with PCP in 3 to 7 days Follow-up with speech therapy and PT and OT Prescriptions: New cephalexin [Keflex] 500 mg capsule 500 mg PO QID Qty: 8 RF: 0 Continued coenzyme Q10 [Co Q-10] 100 mg capsule 100 mg PO QDAY RF: 0 metformin 500 mg tablet 1,000 mg PO BID RF: 0 nitroglycerin 0.4 mg tablet, sublingual 0.4 mg SUBLINGUAL Q5-15M PRN (Reason: Chest Pain) RF: 0 aspirin [Adult Low Dose Aspirin] 81 mg tablet,delayed release (DR/EC) 81 mg PO HS RF: 0 Refresh Tears 0.5 % drops 1 drp OPHTHALMIC 4-6XD PRN (Reason: dry eye(s)) Qty: 30 RF: 0 urea-alpha hydroxy acids 25-6 % cream See Rx Instructions TOPICAL BID RF: 0 atorvastatin 40 MG tablet 40 mg PO HS RF: 0 clopidogrel 75 MG tablet 75 mg PO DAILY RF: 0 Changed Levemir FlexTouch U-100 Insuln 100 unit/mL (3 mL) insulin pen 35 unit SUB-Q QDAY Qty: 3 RF: 0 tamsulosin 0.4 MG capsule 0.8 mg PO HS Qty: 30 RF: 0 No Action ketotifen fumarate [Alaway] 0.025 % (0.035 %) Drops 1 drp OPHTHALMIC (EYE) BID RF: 0 levothyroxine 25 mcg Tablet 25 mcg PO QDAY RF: 0 ketorolac [Acular] 0.5 % Drops 1 drp OPHTHALMIC (EYE) TID RF: 0 lisinopril 10 mg Tablet 10 mg PO QDAY RF: 0 (DME) pen needle, diabetic [TechLITE Pen Needle] 32 gauge x 5/32" Needle MISCELLANEOUS RF: 0 Vitamin D3 2,000 unit capsule 2,000 units PO DAILY RF: 0 Follow Up Plan Follow up with: Dawson Griffin MD [Physician] - Patient Disposition: Xfer SNF Prognosis: Fair Rehab Potential: Fair I certify that the patient requires SNF services: Yes Overall status at discharge: patient is progressing back to baseline QUALITY VTE Deep Vein Thrombosis/Pulmonary Embolism Present on Admission: No
[2020-02-13] MEDS ORDERED: MAGNESIUM SULFATE 8.12 MEQ in DEXTROSE 5% IN WATER 50 ML IV ONE (11:00)
[2020-02-13 12:28] LABS: ALT/SGPT 8 U/L (<40); AST/SGOT 14 U/L (<40); Albumin 3.1 gm/dL (3.2-5.2); Alkaline Phosphatase 120 U/L (39-117); Bilirubin,Direct 0.2 mg/dL (<0.3); Bilirubin,Total 0.5 mg/dL (0.1-1.0); Blood Urea Nitrogen 10 mg/dL (8-23); Calcium 8.8 mg/dL (8.6-10.4); Carbon Dioxide 20 mmol/L (22-30); Chloride 106 mmol/L (96-108); Globulin 3.2 gm/dL (2.2-3.7); Glomerular Filtration Rate 74; Glucose 88 mg/dL (70-105); Lactate Dehydrogenase 283 U/L (135-225); Phosphorous 3.1 mg/dL (2.5-4.5); Triglycerides 134 mg/dL (<150); Uric Acid 7.1 mg/dL (2.5-8.0)
[2020-02-13] MEDS ORDERED: INSULIN GLARGINE, HUMAN 1 UNIT/0.01 ML SQ SCH (21:00)
[2020-02-13] MEDS: ASPIRIN 81 MG TAB.CHEW PO SCH (21:34)
[2020-02-13] MEDS: INSULIN GLARGINE, HUMAN 1 UNIT/0.01 ML SQ SCH (21:34)
[2020-02-13] MEDS: ATORVASTATIN 40 MG TABLET PO SCH (21:34)
[2020-02-13] MEDS: TAMSULOSIN 0.4 MG CAPSULE PO SCH (21:34)
[2020-02-14] MEDS: INSULIN LISPRO 1 UNIT/0.01 ML UNIT SQ SCH ×4 (07:44→21:20)
[2020-02-14] MEDS: CLOPIDOGREL 75 MG TABLET PO SCH (08:58)
[2020-02-14] MEDS: QUEtiapine 25 MG TABLET PO SCH (08:58)
[2020-02-14] MEDS: metFORMIN 500 MG TABLET PO SCH ×2 (08:59→16:55)
[2020-02-14] MEDS: HEPARIN 5,000 UNIT/ML VIAL SQ SCH ×2 (09:00→21:19)
[2020-02-14] MEDS: cefTRIAXone 1 GM VIAL IV SCH (09:01)
[2020-02-14] MEDS: NICOTINE 14 MG PATCH TOPICAL SCH (09:08)
--- NOTE | 2020-02-14 09:57 | Internal Med Progress Note ---
SUBJECTIVE Subjective Patient information: Note initiated : 02/14/20 at 9:53 am Service Date, if different from initiated Date: [] Patient: Yoni Santiago 75 y/o M admitted on 02/09/20 for hyperglycemia /hypotension. Chief Complaint: [] Interval history: Mr. Santiago is a 75 year old male with a history of CAD, severe PVD, CKD III, poorly controlled IDDM, EDI, extensive tobacco use history, s/p dual lead pacemaker pacemaker who presents to the ED for evaluation of acute on chronic kidney injury. He was sent to the ED by his radio station engineer after routine labs showed an increase in creatinine. In the ED the patient was also found to be severely hyperglycemic with a venous glucose of 875. There was no anion gap and beta hydroxybuterate was normal so hyperosmolar hyperglycemic state was diagnosed. The patient was started on IV fluid and an insulin drip. Other pertinent lab work revealed leukocytosis of 16.7 and a lactic acid level of 2.3. The cause of this is possibly cellulitis of the right elbow which developed after a recent fall. Admission chest xray also showed a developing right infiltrate, another possible cause of HHS. There is likely a component of nonadherence to his insulin regimen also. The patient denies recent chest pain, respiratory complaints, abdominal pain, sore throat, the patient does not have any more teeth. ROS is positive for bilateral thigh pain mostly during ambulation. He was admitted on 02/08 for management of HHS, DERRELL on CKD, and further workup into other possible causes of this illness. 02/09-off insulin drip, glucose stable with lantus and humalog SSI, wound surgery recommends no aspiration of fluid collection near right elbow, initially on Ancef then transitioned to Ceftriaxone for xray showing developing right basilar infiltrate, WBC down trending, having urinary retention-restarted home Flomax, coughing while eating-speech consulted, PT and OT consulted. 02/10-increased lantus 25-->30 for AM hyperglycemia and humalog SSI to high, DERRELL resolving, CT head negative for acute findings, severe cognitive impairment suggested by OT evaluation. 02/11-stable and progressing towards discharge, cognitive impairment will likely complicate discharge planning. *The patient wants to leave AMA and wants to drive his truck home. I told him I am concerned about him driving a vehicle and also taking care of himself. I don't think the patient has capacity right now. I discussed my concerns with his son, Ethan Santiago, who also has concerns about the patient's cognitive status. The initial OT cognitive evaluation suggested severe cognitive impairment. He has been having difficulty managing basic activities of daily living according to his son. I suspect the patient has undiagnosed dementia. His son is his medical decision maker at this point, he is ok with us keeping the patient here until a safe discharge can be arranged. 02/12 No overnight event or new complaints. Elevated blood glucose and increased insulin. Treating insulin, awaiting placement needs and possible discharge tomorrow. Constitutional Vitals: Vital Signs Temp Pulse Resp BP Pulse Ox 97.4 F 71 18 123/54 95 02/14/20 08:00 02/14/20 08:00 02/14/20 08:00 02/14/20 08:00 02/14/20 08:00 Period Temp Pulse Resp BP Sys/[place] Pulse Ox Last 24 Hr 97.1 F-98.1 F 71-84 16-20 113-141/53-70 93-100 Intake and Output 02/13/20 02/14/20 02/14/20 21:59 05:59 13:59 Intake Total 120 Balance 120 Weight 86.636 kg Intake & Output: Intake & Output 02/13/20 02/14/20 02/14/20 21:59 05:59 13:59 Intake Total 120 Balance 120 Weight 86.636 kg Intake: Oral 120 Other: Meal Dinner Jello Percent of Meal Consumed 100% 100% Feeding Ability Independent Independent Urine Appearance Clear Urine Color Bright Yellow Urine Odor Normal # Voids 1 1 1 Exam: General: Alert, Awake, No acute Distress Eyes/N/T: EOMI, Head/Neck: neck supple, CV: RRR, No murmurs, Pulm: Clear b/l, no wheezing/rhonchi/rales Abd: soft, nontender, +BS x4 Ext: no clubbing/cyanosis/edema Neuro: Alert, no focal deficits, moves all extremities, Skin: warm/dry OBJ DATA Labs CBC & Chem 7: 02/12/20 05:23 02/13/20 05:53 Labs: Abnormal Lab Results 02/13/20 02/12/20 02/12/20 05:53 05:23 05:23 RBC 6.26 H MCV 72.5 L MCH 22.0 L MCHC 30.4 L RDW 22.0 H Seg Neutrophils % 82 H Lymphocytes % 8 L RBC Morphology Abnormal A Hypochromasia 1+ A Anisocytosis 1+ A Microcytosis 1+ A Carbon Dioxide 20 L 21 L Glucose 130 H Alkaline Phosphatase 120 H 121 H Lactate Dehydrogenase 283 H Total Protein 5.8 L Albumin 3.1 L 3.0 L Meds: Medications Albuterol Sulfate (Ventolin) 2.5 mg NEB Q2HP PRN PRN Reason: Shortness Of Breath Artificial Tears (Refresh Celluvisc) 1 each OU QIDP PRN PRN Reason: dry eye(s) Aspirin (Aspirin) 81 mg PO [facility] Last Admin: 02/13/20 21:34 Dose: 81 mg Documented by: Atorvastatin Calcium (Lipitor) 40 mg PO [facility] Last Admin: 02/13/20 21:34 Dose: 40 mg Documented by: Ceftriaxone Sodium (Rocephin) 1 gm IV Q24H [facility]; Protocol Last Admin: 02/14/20 09:01 Dose: 1 gm Documented by: Clopidogrel Bisulfate (Plavix) 75 mg PO DAILY [facility] Last Admin: 02/14/20 08:58 Dose: 75 mg Documented by: Dextrose (Dextrose 50%) 0 ml IV UD PRN PRN Reason: Hypoglycemia Diagnostic Test (Pha) (Accu-Chek) 1 each FS [facility] Last Admin: 02/14/20 07:42 Dose: 1 each Documented by: Glucose (Insta-Glucose) 15 gm PO PRN PRN PRN Reason: Hypoglycemia Heparin Sodium (Porcine) (Heparin) 5,000 unit SQ Q12 [facility] Last Admin: 02/14/20 09:00 Dose: 5,000 unit Documented by: Insulin Glargine (Lantus) 35 unit SQ [facility] Last Admin: 02/13/20 21:34 Dose: 35 units Documented by: Insulin Human Lispro (Humalog) 0 unit SQ [facility]; Protocol Last Admin: 02/14/20 07:44 Dose: Not Given Documented by: Metformin HCl (Glucophage) 1,000 mg PO BIDCC [facility] Last Admin: 02/14/20 08:59 Dose: 1,000 mg Documented by: Nicotine (Nicoderm) 14 mg TOPICAL DAILY@1000 [facility] Last Admin: 12/19/20 09:08 Dose: 14 mg Documented by: Nitroglycerin (Nitrostat) 0.4 mg SL Q5MIN PRN PRN Reason: Chest Pain Olanzapine (Zyprexa) 5 mg IM Q6HP PRN PRN Reason: agitation Quetiapine Fumarate (Seroquel) 25 mg PO DAILY [facility] Last Admin: 02/14/20 08:58 Dose: 25 mg Documented by: Tamsulosin HCl (Flomax) 0.8 mg PO HS [facility] Last Admin: 02/13/20 21:34 Dose: 0.8 mg Documented by: ABG Interpretation ABG results: 02/10/20 17:34 ABG Methemoglobin 0 L VBG pH 7.32 VBG pCO2 41.7 VBG pO2 33.8 VBG HCO3 21.1 L VBG Total CO2 22.3 L VBG O2 Saturation 55.5 VBG Base Excess -5 L A/P Narrative A/P Narrative: A: *Hyperosmolar hyperglycemic state, resolved -2/2 combination of nonadherence vs not comprehending DM mgmt (Levemir/Metformin) & right elbow cellulitis. *Diabetes mellitus type II: uncontrolled, A1c 11.3 *Right elbow cellulitis and wound (nonpurulent) -No surgical intervention per wound surgery *Possible pneumonia - developing right basal infiltrate on xray per radiology read on admission -concern for aspiration *Oropharyngeal Dysphagia: *COPD: has nocturnal hypoxia-likely chronic, was not on inhaler for COPD-prn albuterol. *DERRELL on CKD III: resolved with IVF *PVD: history of severe peripheral vascular disease, recently has experienced progressive thigh pain with ambulation, bilateral lower extremity arterial duplex-no evidence of occlusion but heavy calcification present-radiology suggested CT abdomnal aortogram runoff however with recent DERRELL on CKD will hold on that for now as there is no evidence of acute ischemic limb. *CAD: no recent chest pains *Dementia with h/o anoxic brain injury: history from family consistent with -CT with mild atrophy and chronic ischemic changes -SLUMS<20 *EDI: CPAP at bedtime. *Tobacco use disorder: *BPH w/ urinary retention: Plan -increase home basal insulin(titrate), SSI, restart metformin -xray showed small right basilar infiltrate-possible aspiration related, resolved on subsequent xray so not sure if really a pneumonia -No surgical intervention per wound surgery. Could be transitioned to oral abx when discharged. -speech consulted-dysphagia diet. -Continue home Aspirin, Plavix, and Atorvastatin. -pt/ot -cpap -nicotine patch and lozenges. -increased flomax to .8 mg daily, bladder scan and straight cath prn. -CM for placement, awaiting -ppx: heparin SQ Time Spent With Patient Time: Total time spent is greater than 50% in coordination of care (as documented) at patient's floor/unit and/or counseling patient: QUALITY VTE Deep Vein Thrombosis/Pulmonary Embolism Present on Admission: No
[2020-02-14] MEDS: TAMSULOSIN 0.4 MG CAPSULE PO SCH (21:18)
[2020-02-14] MEDS: ASPIRIN 81 MG TAB.CHEW PO SCH (21:19)
[2020-02-14] MEDS: ATORVASTATIN 40 MG TABLET PO SCH (21:19)
[2020-02-14] MEDS: INSULIN GLARGINE, HUMAN 1 UNIT/0.01 ML SQ SCH (21:20)
[2020-02-15] MEDS: INSULIN LISPRO 1 UNIT/0.01 ML UNIT SQ SCH ×4 (06:51→21:50)
--- NOTE | 2020-02-15 07:43 | Internal Med Progress Note ---
SUBJECTIVE Subjective Patient information: Note initiated : 02/15/20 at 7:40 am Service Date, if different from initiated Date: [] Patient: Yoni Santiago 75 y/o M admitted on 02/09/20 for hyperglycemia /hypotension. Chief Complaint: [] Interval history: Mr. Santiago is a 75 year old male with a history of CAD, severe PVD, CKD III, poorly controlled IDDM, EDI, extensive tobacco use history, s/p dual lead pacemaker pacemaker who presents to the ED for evaluation of acute on chronic kidney injury. He was sent to the ED by his computer mechanic after routine labs showed an increase in creatinine. In the ED the patient was also found to be severely hyperglycemic with a venous glucose of 875. There was no anion gap and beta hydroxybuterate was normal so hyperosmolar hyperglycemic state was diagnosed. The patient was started on IV fluid and an insulin drip. Other pertinent lab work revealed leukocytosis of 16.7 and a lactic acid level of 2.3. The cause of this is possibly cellulitis of the right elbow which developed after a recent fall. Admission chest xray also showed a developing right infiltrate, another possible cause of HHS. There is likely a component of nonadherence to his insulin regimen also. The patient denies recent chest pain, respiratory complaints, abdominal pain, sore throat, the patient does not have any more teeth. ROS is positive for bilateral thigh pain mostly during ambulation. He was admitted on 02/08 for management of HHS, DERRELL on CKD, and further workup into other possible causes of this illness. 02/09-off insulin drip, glucose stable with lantus and humalog SSI, wound surgery recommends no aspiration of fluid collection near right elbow, initially on Ancef then transitioned to Ceftriaxone for xray showing developing right basilar infiltrate, WBC down trending, having urinary retention-restarted home Flomax, coughing while eating-speech consulted, PT and OT consulted. 02/10-increased lantus 25-->30 for AM hyperglycemia and humalog SSI to high, DERRELL resolving, CT head negative for acute findings, severe cognitive impairment suggested by OT evaluation. 02/11-stable and progressing towards discharge, cognitive impairment will likely complicate discharge planning. *The patient wants to leave AMA and wants to drive his truck home. I told him I am concerned about him driving a vehicle and also taking care of himself. I don't think the patient has capacity right now. I discussed my concerns with his son, Ethan Santiago, who also has concerns about the patient's cognitive status. The initial OT cognitive evaluation suggested severe cognitive impairment. He has been having difficulty managing basic activities of daily living according to his son. I suspect the patient has undiagnosed dementia. His son is his medical decision maker at this point, he is ok with us keeping the patient here until a safe discharge can be arranged. 02/12 No overnight event or new complaints. Elevated blood glucose and increased insulin. Treating insulin, awaiting placement needs and possible discharge tomorrow. 02/13 No overnight event or new complaints. Awaiting placement. 02/14 Patient doing well. No overnight event or new complaints. Awaiting placement Review of Systems: denies headache/fever/chills/nausea/vomiting/chest or abdominal pain/cough/dyspnea/diarrhea. Otherwise see above. Constitutional Vitals: Vital Signs Temp Pulse Resp BP Pulse Ox 97.7 F 67 18 166/75 95 02/15/20 00:00 02/15/20 00:00 02/15/20 04:00 02/15/20 00:00 02/15/20 00:00 Period Temp Pulse Resp BP Sys/Chaparro Pulse Ox Last 24 Hr 97.4 F-98.6 F 67-78 18-22 123-166/54-75 92-95 Intake and Output 02/14/20 02/15/20 02/15/20 21:59 05:59 13:59 Intake Total 560 250 Output Total 350 Balance 560 -100 Weight 86.137 kg Intake & Output: Intake & Output 02/14/20 02/15/20 02/15/20 21:59 05:59 13:59 Intake Total 560 250 Output Total 350 Balance 560 -100 Weight 86.137 kg Intake: Oral 560 250 Output: Void Amount 350 Other: Meal Dinner Percent of Meal Consumed 100% Urine Appearance Clear Clear Urine Color Bright Yellow Bright Yellow Urine Odor Normal Normal # Voids 1 2 Exam: General: Alert, Awake, No acute Distress Eyes/N/T: EOMI, Head/Neck: neck supple, CV: RRR, No murmurs, Pulm: Clear b/l, no wheezing/rhonchi/rales Abd: soft, nontender, +BS x4 Ext: no clubbing/cyanosis/edema Neuro: Alert, no focal deficits, moves all extremities, Skin: warm/dry OBJ DATA Labs CBC & Chem 7: 02/12/20 05:23 02/13/20 05:53 Labs: Abnormal Lab Results 02/13/20 02/12/20 02/12/20 05:53 05:23 05:23 RBC 6.26 H MCV 72.5 L MCH 22.0 L MCHC 30.4 L RDW 22.0 H Seg Neutrophils % 82 H Lymphocytes % 8 L RBC Morphology Abnormal A Hypochromasia 1+ A Anisocytosis 1+ A Microcytosis 1+ A Carbon Dioxide 20 L 21 L Glucose 130 H Alkaline Phosphatase 120 H 121 H Lactate Dehydrogenase 283 H Total Protein 5.8 L Albumin 3.1 L 3.0 L Meds: Medications Albuterol Sulfate (Ventolin) 2.5 mg NEB Q2HP PRN PRN Reason: Shortness Of Breath Artificial Tears (Refresh Celluvisc) 1 each OU QIDP PRN PRN Reason: dry eye(s) Aspirin (Aspirin) 81 mg PO HS [facility] Last Admin: 02/14/20 21:19 Dose: 81 mg Documented by: Atorvastatin Calcium (Lipitor) 40 mg PO HS [facility] Last Admin: 02/14/20 21:19 Dose: 40 mg Documented by: Ceftriaxone Sodium (Rocephin) 1 gm IV Q24H [facility]; Protocol Last Admin: 02/14/20 09:01 Dose: 1 gm Documented by: Clopidogrel Bisulfate (Plavix) 75 mg PO DAILY [facility] Last Admin: 02/14/20 08:58 Dose: 75 mg Documented by: Dextrose (Dextrose 50%) 0 ml IV UD PRN PRN Reason: Hypoglycemia Diagnostic Test (Pha) (Accu-Chek) 1 each FS [facility] Last Admin: 02/15/20 06:51 Dose: 1 each Documented by: Glucose (Insta-Glucose) 15 gm PO PRN PRN PRN Reason: Hypoglycemia Heparin Sodium (Porcine) (Heparin) 5,000 unit SQ Q12 [facility] Last Admin: 02/14/20 21:19 Dose: 5,000 unit Documented by: Insulin Glargine (Lantus) 35 unit SQ HS [facility] Last Admin: 02/14/20 21:20 Dose: 35 units Documented by: Insulin Human Lispro (Humalog) 0 unit SQ [facility]; Protocol Last Admin: 02/15/20 06:51 Dose: Not Given Documented by: Metformin HCl (Glucophage) 1,000 mg PO BIDCC [facility] Last Admin: 02/14/20 16:55 Dose: 1,000 mg Documented by: Nicotine (Nicoderm) 14 mg TOPICAL DAILY@1000 [facility] Last Admin: 02/14/20 09:08 Dose: 14 mg Documented by: Nitroglycerin (Nitrostat) 0.4 mg SL Q5MIN PRN PRN Reason: Chest Pain Olanzapine (Zyprexa) 5 mg IM Q6HP PRN PRN Reason: agitation Quetiapine Fumarate (Seroquel) 25 mg PO DAILY [facility] Last Admin: 02/14/20 08:58 Dose: 25 mg Documented by: Tamsulosin HCl (Flomax) 0.8 mg PO HS [facility] Last Admin: 02/14/20 21:18 Dose: 0.8 mg Documented by: ABG Interpretation ABG results: 02/10/20 17:34 ABG Methemoglobin 0 L VBG pH 7.32 VBG pCO2 41.7 VBG pO2 33.8 VBG HCO3 21.1 L VBG Total CO2 22.3 L VBG O2 Saturation 55.5 VBG Base Excess -5 L A/P Narrative A/P Narrative: A: *Hyperosmolar hyperglycemic state, resolved -2/2 combination of nonadherence vs not comprehending DM mgmt (Levemir/Metformin) & right elbow cellulitis. *Diabetes mellitus type II: uncontrolled, A1c 11.3 *Right elbow cellulitis and wound (nonpurulent) -No surgical intervention per wound surgery *Possible pneumonia - developing right basal infiltrate on xray per radiology read on admission -concern for aspiration *Oropharyngeal Dysphagia: *COPD: has nocturnal hypoxia-likely chronic, was not on inhaler for COPD-prn albuterol. *DERRELL on CKD III: resolved with IVF *PVD: history of severe peripheral vascular disease, recently has experienced progressive thigh pain with ambulation, bilateral lower extremity arterial duplex-no evidence of occlusion but heavy calcification present-radiology suggested CT abdomnal aortogram runoff however with recent DERRELL on CKD will hold on that for now as there is no evidence of acute ischemic limb. *CAD: no recent chest pains *Dementia with h/o anoxic brain injury: history from family consistent with -CT with mild atrophy and chronic ischemic changes -SLUMS<20 *EDI: CPAP at bedtime. *Tobacco use disorder: *BPH w/ urinary retention: Plan -increased home basal insulin(titrate), SSI, restart metformin -xray showed small right basilar infiltrate-possible aspiration related, resolved on subsequent xray so not sure if really a pneumonia -No surgical intervention per wound surgery. Could be transitioned to oral abx when discharged. -speech consulted-dysphagia diet. -Continue home Aspirin, Plavix, and Atorvastatin. -pt/ot -cpap -nicotine patch and lozenges. -increased flomax to .8 mg daily, bladder scan and straight cath prn. -CM for placement, awaiting -ppx: heparin SQ Time Spent With Patient Time: Total time spent is greater than 50% in coordination of care (as documented) at patient's floor/unit and/or counseling patient: [facility]AL[facility] VTE Deep Vein Thrombosis/Pulmonary Embolism Present on Admission: No
[2020-02-15] MEDS ORDERED: INSULIN GLARGINE, HUMAN 1 UNIT/0.01 ML SQ SCH ×3 (09:00→21:00)
[2020-02-15] MEDS: metFORMIN 500 MG TABLET PO SCH ×2 (09:13→16:50)
[2020-02-15] MEDS: CLOPIDOGREL 75 MG TABLET PO SCH (09:14)
[2020-02-15] MEDS: QUEtiapine 25 MG TABLET PO SCH (09:14)
[2020-02-15] MEDS: HEPARIN 5,000 UNIT/ML VIAL SQ SCH ×2 (09:14→21:50)
[2020-02-15] MEDS: NICOTINE 14 MG PATCH TOPICAL SCH (09:15)
[2020-02-15] MEDS: cefTRIAXone 1 GM VIAL IV SCH (09:22)
--- NOTE | 2020-02-15 09:30 | Discharge Summary ---
Discharge Provider Provider Patient information: Note initiated : 02/15/20 at 9:29 am Service Date, if different from initiated Date: [] Patient: Yoni Santiago 75 y/o M admitted on 02/09/20 for hyperglycemia/hypotension. Chief Complaint: [] Date of admission: 02/09/20 23:47 Discharge date: 02/16/20 Primary care physician: PCP No Consults: 02/09/20 Consult to Physician [CONS] Stat Comment: Consulting Provider: John Wharton Reason For Exam: Physician to Consult 02/10/20 12:55 Consult to Physician [CONS] Routine Comment: Right elbow wound Consulting Provider: Eliel Rea Reason For Exam: Physician to Consult 02/13/20 10:19 Consult to Physician [CONS] Routine Comment: Consulting Provider: [facility] Reason For Exam: Physician to Consult 02/13/20 11:17 Consult to Physician [CONS] Routine Comment: Consulting Provider: [facility] Reason For Exam: Physician to Consult Discharge Meds Discharge Medications Home Medications atorvastatin 40 mg PO HS 12/16/16 [History Confirmed 02/10/20 Last Taken Unknown] clopidogrel 75 mg PO DAILY 12/16/16 [History Confirmed 02/10/20 Last Taken Unknown] coenzyme Q10 100 mg capsule 100 mg PO QDAY 11/05/18 [History Confirmed 02/10/20 Last Taken Unknown] metformin 500 mg tablet 1,000 mg PO BID 11/05/18 [History Confirmed 02/10/20 Last Taken Unknown] nitroglycerin 0.4 mg sublingual tablet 0.4 mg SUBLINGUAL Q5-15M PRN 11/05/18 [History Confirmed 02/10/20 Last Taken Unknown] aspirin 81 mg tablet,delayed release 81 mg PO HS tab 11/25/18 [History Confirmed 02/10/20 Last Taken Unknown] carboxymethylcellulose sodium 0.5 % eye drops 1 drp OPHTHALMIC 4-6XD PRN #30 ml 06/17/19 [Rx Confirmed 02/10/20 Last Taken Unknown] urea 25 %-alpha hydroxy acids 6 % topical cream See Rx Instructions TOPICAL BID g 06/24/19 [History Confirmed 02/10/20 Last Taken Unknown] Vitamin D3 2,000 units PO DAILY 02/13/20 [History Confirmed 02/13/20 Last Taken Unknown] ketorolac [Acular] 1 drp OPHTHALMIC (EYE) TID 02/13/20 [History Confirmed 02/12 Last Taken Unknown] ketotifen fumarate [Alaway] 1 drp OPHTHALMIC (EYE) BID 02/13/20 [History Confirmed 02/13/20 Last Taken Unknown] levothyroxine 25 mcg PO QDAY 02/13/20 [History Confirmed 02/13/20 Last Taken Unknown] lisinopril 10 mg PO QDAY 02/13/20 [History Confirmed 02/13/20 Last Taken Unknown] pen needle, diabetic [TechLITE Pen Needle] 02/13/20 [History Confirmed 02/13/20 Last Taken Unknown] tamsulosin 0.8 mg PO HS #30 cap 02/13/20 [Rx Last Taken Unknown] atenolol 100 mg PO DAILY 02/15/20 [History Confirmed 02/15/20 Last Taken Unknown] cephalexin [Keflex] 500 mg PO QID #4 cap 02/15/20 [Rx Last Taken Unknown] insulin detemir U-100 [Levemir FlexTouch U-100 Insuln] 15 unit SUB-Q QAM #3 ml 02/15/20 [Rx Last Taken Unknown] insulin detemir U-100 [Levemir FlexTouch U-100 Insuln] 20 unit SUB-Q QHS #3 ml 02/15/20 [Rx Last Taken Unknown] nicotine 1 patch TRANSDERMA Q24H #7 each 02/16/20 [Rx Last Taken Unknown] COURSE Hospital Course Hospital course: Interval history: Mr. Santiago is a 75 year old male with a history of CAD, severe PVD, CKD III, poorly controlled IDDM, EDI, extensive tobacco use history, s/p dual lead pacemaker pacemaker who presents to the ED for evaluation of acute on chronic kidney injury. He was sent to the ED by his private banker after routine labs showed an increase in creatinine. In the ED the patient was also found to be severely hyperglycemic with a venous glucose of 875. There was no anion gap and beta hydroxybuterate was normal so hyperosmolar hyperglycemic state was diagnosed. The patient was started on IV fluid and an insulin drip. Other pertinent lab work revealed leukocytosis of 16.7 and a lactic acid level of 2.3. The cause of this is possibly cellulitis of the right elbow which developed after a recent fall. Admission chest xray also showed a developing right infiltrate, another possible cause of HHS. There is likely a component of nonadherence to his insulin regimen also. The patient denies recent chest pain, respiratory complaints, abdominal pain, sore throat, the patient does not have any more teeth. ROS is positive for bilateral thigh pain mostly during ambulation. He was admitted on 02/08 for management of HHS, DERRELL on CKD, and further workup into other possible causes of this illness. 02/09-off insulin drip, glucose stable with lantus and humalog SSI, wound surgery recommends no aspiration of fluid collection near right elbow, initially on Ancef then transitioned to Ceftriaxone for xray showing developing right basilar infiltrate, WBC down trending, having urinary retention-restarted home Flomax, coughing while eating-speech consulted, PT and OT consulted. 02/10-increased lantus 25-->30 for AM hyperglycemia and humalog SSI to high, DERRELL resolving, CT head negative for acute findings, severe cognitive impairment suggested by OT evaluation. 02/11-stable and progressing towards discharge, cognitive impairment will likely complicate discharge planning. *The patient wants to leave AMA and wants to drive his truck home. I told him I am concerned about him driving a vehicle and also taking care of himself. I don't think the patient has capacity right now. I discussed my concerns with his son, Ethan Santiago, who also has concerns about the patient's cognitive status. The initial OT cognitive evaluation suggested severe cognitive impairment. He has been having difficulty managing basic activities of daily living according to his son. I suspect the patient has undiagnosed dementia. His son is his medical decision maker at this point, he is ok with us keeping the patient here until a safe discharge can be arranged. 02/12 No overnight event or new complaints. Elevated blood glucose and increased insulin. Treating insulin, awaiting placement needs and possible discharge tomorrow. 02/13 No overnight event or new complaints. Awaiting placement. 02/14 Patient doing well. No overnight event or new complaints. Awaiting placement 02/15 Doing well. No overnight event or new complaints. Stable for discharge. A: *Hyperosmolar hyperglycemic state, resolved -2/2 combination of nonadherence vs not comprehending DM mgmt (Levemir/Metformin) & right elbow cellulitis. *Diabetes mellitus type II: uncontrolled, A1c 11.3 *Right elbow cellulitis and wound (nonpurulent) -No surgical intervention per wound surgery *Possible pneumonia - developing right basal infiltrate on xray per radiology read on admission -concern for aspiration *Oropharyngeal Dysphagia: *COPD: has nocturnal hypoxia-likely chronic, was not on inhaler for COPD-prn albuterol. *DERRELL on CKD III: resolved with IVF *PVD: history of severe peripheral vascular disease, recently has experienced progressive thigh pain with ambulation, bilateral lower extremity arterial duplex-no evidence of occlusion but heavy calcification present-radiology suggested CT abdomnal aortogram runoff however with recent DERRELL on CKD will hold on that for now as there is no evidence of acute ischemic limb. *CAD: no recent chest pains *Dementia with h/o anoxic brain injury: history from family consistent with -CT with mild atrophy and chronic ischemic changes -SLUMS<20 *EDI: CPAP at bedtime. *Tobacco use disorder: *BPH w/ urinary retention: Discharge diagnosis: Hyperosmolar hyperglycemic state diabetes right elbow cellulitis Secondary discharge diagnosis: Possible aspiration pneumonia oropharyngeal dysphagia COPD acute on chronic kidney disease peripheral vascular disease CAD dementia EDI tobacco abuse Time Spent with Patient Time attestation: Total time spent providing and/or coordinating discharge services: Time spent: Greater than 30 minutes EXAM Constitutional Vitals: Temp Pulse Resp BP Pulse Ox 97.7 F 88 18 117/67 92 02/15/20 08:00 02/15/20 08:00 02/15/20 08:00 02/15/20 08:00 02/15/20 08:00 Discharge Plan Patient/Caregiver Discharge Instructions Activity: increase activity as tolerated Diet: Consistent Carbohydrate and Dysphagia Level 6 Soft & Bite-Sized Foods Activity Restrictions/Additional Instructions: Follow-up with PCP in 3 to 7 days Follow-up with speech therapy and PT and OT Prescriptions: New cephalexin [Keflex] 500 mg capsule 500 mg PO QID Qty: 4 RF: 0 Levemir FlexTouch U-100 Insuln 100 unit/mL (3 mL) insulin pen 20 unit SUB-Q QHS Qty: 3 RF: 0 Levemir FlexTouch U-100 Insuln 100 unit/mL (3 mL) insulin pen 15 unit SUB-Q QAM Qty: 3 RF: 0 nicotine 21 mg/24 hr patch 24 hour 1 patch TRANSDERMA Q24H Qty: 7 RF: 0 Continued coenzyme Q10 [Co Q-10] 100 mg capsule 100 mg PO QDAY RF: 0 metformin 500 mg tablet 1,000 mg PO BID RF: 0 nitroglycerin 0.4 mg tablet, sublingual 0.4 mg SUBLINGUAL Q5-15M PRN (Reason: Chest Pain) RF: 0 aspirin [Adult Low Dose Aspirin] 81 mg tablet,delayed release (DR/EC) 81 mg PO HS RF: 0 Refresh Tears 0.5 % drops 1 drp OPHTHALMIC 4-6XD PRN (Reason: dry eye(s)) Qty: 30 RF: 0 urea-alpha hydroxy acids 25-6 % cream See Rx Instructions TOPICAL BID RF: 0 atorvastatin 40 MG tablet 40 mg PO HS RF: 0 clopidogrel 75 MG tablet 75 mg PO DAILY RF: 0 ketotifen fumarate [Alaway] 0.025 % (0.035 %) Drops 1 drp OPHTHALMIC (EYE) BID RF: 0 levothyroxine 25 mcg Tablet 25 mcg PO QDAY RF: 0 ketorolac [Acular] 0.5 % Drops 1 drp OPHTHALMIC (EYE) TID RF: 0 lisinopril 10 mg Tablet 10 mg PO QDAY RF: 0 (DME) pen needle, diabetic [TechLITE Pen Needle] 32 gauge x 5/32" Needle MISCELLANEOUS RF: 0 Vitamin D3 2,000 unit capsule 2,000 units PO DAILY RF: 0 atenolol 100 mg tablet 100 mg PO DAILY RF: 0 Changed tamsulosin 0.4 MG capsule 0.8 mg PO HS Qty: 30 RF: 0 Discontinued Levemir FlexTouch U-100 Insuln 100 unit/mL (3 mL) insulin pen 26 unit SUB-Q QDAY RF: 0 Follow Up Plan Patient Disposition: Xfer SNF Prognosis: Fair Rehab Potential: Fair I certify that the patient requires SNF services: Yes Overall status at discharge: patient is progressing back to baseline Discharge Orders: Discharge Order (Routine); Ordered 02/16/20 [facility]/Pulmonary Embolism Present on Admission: No
[2020-02-15] MEDS ORDERED: INSULIN GLARGINE, HUMAN 1 UNIT/0.01 ML SQ ONE (09:33)
[2020-02-15] MEDS: ATORVASTATIN 40 MG TABLET PO SCH (21:49)
[2020-02-15] MEDS: ASPIRIN 81 MG TAB.CHEW PO SCH (21:49)
[2020-02-15] MEDS: TAMSULOSIN 0.4 MG CAPSULE PO SCH (21:49)
[2020-02-16] MEDS: metFORMIN 500 MG TABLET PO SCH (07:43)
[2020-02-16] MEDS: INSULIN LISPRO 1 UNIT/0.01 ML UNIT SQ SCH (07:43)
[2020-02-16] MEDS ORDERED: INSULIN GLARGINE, HUMAN 1 UNIT/0.01 ML SQ SCH (09:00)
[2020-02-16] MEDS: CLOPIDOGREL 75 MG TABLET PO SCH (09:17)
[2020-02-16] MEDS: QUEtiapine 25 MG TABLET PO SCH (09:17)
[2020-02-16] MEDS: HEPARIN 5,000 UNIT/ML VIAL SQ SCH (09:17)
[2020-02-16] MEDS: NICOTINE 14 MG PATCH TOPICAL SCH (09:18)
[2020-02-16] MEDS: cefTRIAXone 1 GM VIAL IV SCH (09:18)
== END 2020-02-16 10:58 | disposition home or self-care (01) | DRG 637 ==
LOC: ED 15:04 → ICU 23:47 → MEDSUR 02-13 15:46
PROVIDERS: ADMIT Internal Medicine; ATTEND Internal Medicine

== ENCOUNTER 2020-11-05 07:25 | Inpatient (IN) ==
[2020-11-05] MEDS ORDERED: diphenhydrAMINE 50 MG/ML VIAL IV ONE (07:40)
[2020-11-05] MEDS ORDERED: PROCHLORPERAZINE 10 MG/2 ML VIAL IV ONE (07:40)
[2020-11-05] MEDS ORDERED: KETOROLAC 15 MG/ML VIAL IV ONE (07:40)
[2020-11-05] MEDS ORDERED: cefTRIAXone 1 GM VIAL IV ONE (07:44)
--- NOTE | 2020-11-05 07:51 | Emergency Department Note ---
Extremity Problem HPI General Chief complaint: Extremity Problem,Nontraumatic Stated complaint: Leg issues Time Seen by Provider: 11/05/20 07:35 Source: patient, RN notes reviewed and old records reviewed Mode of arrival: wheelchair Limitations: no limitations History of Present Illness HPI Narrative: Narrative: 75-year-old male with insulin-dependent diabetes coronary artery disease complains of bilateral lower extremity swelling erythema redness skin breakdown and weeping to been going on for months but has gotten worse over the last week. Complains of low-grade fevers he denies any pain he has shortness of breath with exertion denies history of congestive heart failure is not on any asked. MD Complaint: extremity pain and extremity swelling Onset (ago): month(s) Consistency: constant Location: left, right and lower extremity Quality: aching and dull Radiation: none Improves with: immobilization and elevation Worsens with: weight bearing, walking, exertion and palpation Associated symptoms: Reports shortness of breath, fever and rash; Denies chest pain, myalgias and arthralgias Related Data Home Medications Medication Instructions Recorded Confirmed atorvastatin 40 mg PO HS 12/16/16 02/10/20 clopidogrel 75 mg PO DAILY 12/16/16 02/10/20 coenzyme Q10 100 mg capsule 100 mg PO QDAY 11/05/18 02/10/20 metformin 500 mg tablet 1,000 mg PO BID 11/05/18 02/10/20 nitroglycerin 0.4 mg sublingual 0.4 mg SUBLINGUAL Q5-15M PRN 11/05/18 02/10/20 tablet aspirin 81 mg tablet,delayed 81 mg PO HS tab 11/25/18 02/10/20 release urea 25 %-alpha hydroxy acids 6 % See Rx Instructions TOPICAL BID g 06/24/19 02/10/20 topical cream Vitamin D3 2,000 units PO DAILY 02/13/20 02/13/20 ketorolac [Acular] 1 drp OPHTHALMIC (EYE) TID 02/13/20 02/13/20 ketotifen fumarate [Alaway] 1 drp OPHTHALMIC (EYE) BID 02/13/20 02/13/20 levothyroxine 25 mcg PO QDAY 02/13/20 02/13/20 lisinopril 10 mg PO QDAY 02/13/20 02/13/20 pen needle, diabetic [TechLITE Pen 02/13/20 02/13/20 Needle] atenolol 100 mg PO DAILY 02/15/20 02/15/20 umeclidinium-vilanterol [Anoro 1 inh INHALATION QDAY 11/05/20 11/05/20 Ellipta] Previous Rx's Medication Instructions Recorded carboxymethylcellulose sodium 0.5 1 drp OPHTHALMIC 4-6XD PRN #30 ml 06/17/19 % eye drops tamsulosin 0.8 mg PO HS #30 cap 02/13/20 cephalexin [Keflex] 500 mg PO QID #4 cap 02/15/20 insulin detemir U-100 [Levemir 15 unit SUB-Q QAM #3 ml 02/15/20 FlexTouch U-100 Insuln] insulin detemir U-100 [Levemir 20 unit SUB-Q QHS #3 ml 02/15/20 FlexTouch U-100 Insuln] nicotine 1 patch TRANSDERMA Q24H #7 each 02/16/20 alprazolam [Xanax] 0.25 mg PO TID PRN #9 tab 05/28/20 famotidine [Pepcid] 20 mg PO QDAY #20 tab 05/28/20 Allergies Allergy/AdvReac Type Severity Reaction Status Date / Time lovastatin Allergy Unknown Unknown Verified 11/05/20 07:25 niacin Allergy Unknown Unknown Verified 11/05/20 07:25 morphine [MORPHINE] AdvReac Mild Nausea/Vomi Verified 11/05/20 07:25 ting Review of Systems ROS ROS Narrative: Narrative: All systems ED: reviewed and negative except as stated. [facility] Narrative Patient History Narrative: Narrative: Medical/Surgical/Family History All Active Problems (Updated 11/05/20 @ 11:50 by Nickolas Mdeeiros MD) Abdominal pain (Chronic) Dehydration (Chronic) Renal failure (ARF), acute on chronic (Chronic) Ileus, postoperative (Chronic) Urinary retention (Chronic) Chronic kidney disease, stage 3 (moderate) (Chronic) Diabetes mellitus (Chronic) Hyperlipidemia (Chronic) Obesity (Chronic) Body mass index exceeds 30 (Chronic) Tobacco dependence syndrome (Chronic) Obstructive sleep apnea syndrome (Chronic) Essential hypertension (Chronic) Arteriosclerotic vascular disease (Chronic) Peripheral vascular disease (Chronic) COPD (chronic obstructive pulmonary disease) (Chronic) GERD (gastroesophageal reflux disease) (Chronic) Chronic low back pain (Chronic) Chronic abdominal pain (Chronic) Epigastric pain (Chronic) Intention tremor (Chronic) Skin lesion (Chronic) Memory impairment (Chronic) Diabetic foot ulcer (Chronic) Type II diabetes mellitus with complication, uncontrolled (Chronic) Peripheral vascular disease with claudication (Chronic) Gastroenteritis and colitis, viral (Acute) Hypothyroidism (Acute) Frequent falls (Acute) Dehydration determined by examination (Acute) Hypotension (Acute) Polypharmacy (Acute) Hyperosmolar non-ketotic state due to type 2 diabetes mellitus (Acute) Acute kidney injury (Acute) Fall (Acute) Cellulitis of right elbow (Acute) Chronic hip pain (Acute) Degenerative joint disease of left hip (Acute) No-show for appointment (Acute) Acute anxiety (Acute) Gastritis (Acute) Congestive heart failure (CHF) (Acute) Cellulitis (Acute) Pneumonia (Acute) Medical History (Updated 11/05/20 @ 11:50 by Nickolas Medeiros MD) Abdominal pain Arteriosclerotic vascular disease 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 Both are slightly above the upper limit of normal As he frequently shows up dehydrated from hypoglycemia this is the reason his KATHIE inhibitor was stopped to prevent acute renal failure under the situations Chronic low back pain COPD (chronic obstructive pulmonary disease) Dehydration Diabetes mellitus Diabetic foot ulcer Epigastric pain Essential hypertension GERD (gastroesophageal reflux disease) Hyperlipidemia Intention tremor Bilateral Hands Memory impairment Obesity Obstructive sleep apnea syndrome Peripheral vascular disease Peripheral vascular disease with claudication Carotid and lower extremity large vessel Dx No retinopathy or nephropathy to suggest small vessel disease Renal failure (ARF), acute on chronic Skin lesion Tobacco dependence syndrome Type II diabetes mellitus with complication, uncontrolled Peripheral neuropathy and PVD HTN No evidence of Diabetic nephropathy Frequently uncontrolled with blood sugars greater than 400 Surgical History History of cardiac catheterization (~10/16/18) S/P arterial stent Femoral Family History Brother Malignant tumor of pancreas Father Pulmonary emphysema [place] (myocardial infarction) Mother FHx: cholecystectomy Hx of appendectomy H/O knee surgery Social History Smoking Status: Current every day smoker Alcohol Intake Frequency: does not drink Substance Use: does not use Exam Narrative Narrative: Narrative: General Limitations: no limitations General appearance: Present alert and in no apparent distress Head Head: Present atraumatic, normocephalic and normal inspection Eye Eye: Present normal appearance, PERRL and EOMI ENT ENT: Present normal exam, mucous membranes moist and normal external ear exam Neck Neck: Present normal inspection and full ROM; Absent trachea midline, tenderness, meningismus and lymphadenopathy Chest Chest: Present normal inspection; Absent tenderness Respiratory Respiratory: Present rales/crackles and decreased breath sounds; Absent respiratory distress Cardiovascular Cardiovascular: Present regular rate, normal rhythm and systolic murmur Adbominal Abdominal: Present soft and normal bowel sounds; Absent distention, tenderness, guarding, rebound and rigidity Extremities Extremities: Present full ROM, tenderness, pedal edema and pretibial edema; Absent normal capillary refill, calf tenderness and cyanosis Back Back: Present normal inspection and full ROM; Absent CVA tenderness (R) and CVA tenderness (L) Neurological Neurological: Present alert and oriented X3 Psychiatric Psychiatric: Present normal affect and normal mood Skin Skin: Present hot, rash and erythema; Absent intact Course Vital Signs Vital signs: Vital Signs Temperature 96.9 F L 11/05/20 07:25 Pulse Rate 99 H 11/05/20 07:25 Respiratory Rate 22 11/05/20 07:25 Blood Pressure 130/78 11/05/20 07:25 Pulse Oximetry (%) 90 11/05/20 07:25 Temperature 96.9 F L 11/05/20 07:25 Pulse Rate 87 11/05/20 11:00 Respiratory Rate 22 11/05/20 07:25 Blood Pressure 138/75 11/05/20 11:00 Pulse Oximetry (%) 88 L 11/05/20 11:00 [facility] Narrative Medical decision making narrative: Narrative: 75-year-old male with chronic stasis changes and cellulitis to bilateral lower extremities. Patient has an elevated white count at 16.4 wound care evaluated patient and recommends admission with IV antibiotics. Patient's glucose was 147 creatinine was 1.4 lactate was okay at 1.6 C-reactive protein is 1.8 and BNP is 5183, chest x-ray is with increased interstitial infiltrate no focal consolidation. Blood cultures are pending received IV Rocephin and azithromycin. Diagnosis 1 is cellulitis diagnosis to his congestive heart failure diagnosis 3 is possible pneumonia patient will be admitted to hospitalist. Differential Diagnosis Differential Diagnosis: Cellulitis DVT congestive heart failure chronic stasis changes peripheral n Medical Records Medical records reviewed: Yes I reviewed the patient's medical records. Lab Data Lab results reviewed: Yes I reviewed the patient's lab results. Result diagrams: 11/05/20 07:45 11/05/20 07:45 Labs: Lab Results 11/05/20 11/05/20 11/05/20 Range/Units 07:45 07:45 07:45 WBC 16.4 H (4.5-11.0) K/mcL RBC 6.76 H (4.63-6.08) M/mcL Hgb 14.2 (13.7-17.5) g/dL Hct 49.5 (40.1-51.0) % MCV 73.2 L (80.0-100.0) fL MCH 21.0 L (26.0-34.0) pg MCHC 28.7 L (31.0-36.0) g/dL RDW 24.6 H (11.5-14.5) % Plt Count 504 H (140-440) K/mcL MPV (7.4-10.4) fL Neut % (Auto) 87.7 H (38.0-78.0) % Lymph % (Auto) 4.9 L (15.5-49.0) % [place] % (Auto) 4.5 (1.0-12.0) % Eos % (Auto) 2.0 (0.0-7.0) % Baso % (Auto) 0.9 (0.0-2.0) % Lymph # (Auto) 0.80 L (1.50-4.80) K/mcL [place] # (Auto) 0.74 (0.10-0.90) K/mcL Eos # (Auto) 0.33 (0.00-0.70) K/mcL Baso # (Auto) 0.15 (0.00-0.30) K/mcL Absolute Neutrophils 14.40 H (1.80-8.00) K/mcL ESR 1 (0-15) mm/hr VBG Lactic Acid 1.6 (0.5-2.0) mmol/L Sodium 138 (133-145) mmol/L Potassium 4.1 (3.3-5.1) mmol/L Chloride 103 (96-108) mmol/L Carbon Dioxide 19 L (22-30) mmol/L Anion Gap 16.0 (8.0-16.0) BUN 12 (8-23) mg/dL Creatinine 1.4 H (0.7-1.2) mg/dL GFR Calculation 49 Glucose 147 H (70-105) mg/dL Calcium 8.8 (8.6-10.4) mg/dL Total Bilirubin 1.2 H (0.1-1.0) mg/dL AST 19 (<40) U/L ALT 20 (<40) U/L Alkaline Phosphatase 172 H (39-117) U/L Troponin T (<0.03) ng/mL C-Reactive Protein 1.80 H (0.03-0.80) mg/dL NT-Pro-B Natriuret Pep 5183.0 H (<125.0) pg/mL Total Protein 6.7 (5.9-8.4) gm/dL Albumin 3.6 (3.2-5.2) gm/dL Globulin 3.1 (2.2-3.7) gm/dL Albumin/Globulin Ratio 1.2 (1.0-2.3) 11/05/20 Range/Units 07:45 WBC (4.5-11.0) K/mcL RBC (4.63-6.08) M/mcL Hgb (13.7-17.5) g/dL Hct (40.1-51.0) % MCV (80.0-100.0) fL MCH (26.0-34.0) pg MCHC (31.0-36.0) g/dL RDW (11.5-14.5) % Plt Count (140-440) K/mcL MPV (7.4-10.4) fL Neut % (Auto) (38.0-78.0) % Lymph % (Auto) (15.5-49.0) % [place] % (Auto) (1.0-12.0) % Eos % (Auto) (0.0-7.0) % Baso % (Auto) (0.0-2.0) % Lymph # (Auto) (1.50-4.80) K/mcL [place] # (Auto) (0.10-0.90) K/mcL Eos # (Auto) (0.00-0.70) K/mcL Baso # (Auto) (0.00-0.30) K/mcL Absolute Neutrophils (1.80-8.00) K/mcL ESR (0-15) mm/hr VBG Lactic Acid (0.5-2.0) mmol/L Sodium (133-145) mmol/L Potassium (3.3-5.1) mmol/L Chloride (96-108) mmol/L Carbon Dioxide (22-30) mmol/L Anion Gap (8.0-16.0) BUN (8-23) mg/dL Creatinine (0.7-1.2) mg/dL GFR Calculation Glucose (70-105) mg/dL Calcium (8.6-10.4) mg/dL Total Bilirubin (0.1-1.0) mg/dL AST (<40) U/L ALT (<40) U/L Alkaline Phosphatase (39-117) U/L Troponin T 0.02 (<0.03) ng/mL C-Reactive Protein (0.03-0.80) mg/dL NT-Pro-B Natriuret Pep (<125.0) pg/mL Total Protein (5.9-8.4) gm/dL Albumin (3.2-5.2) gm/dL Globulin (2.2-3.7) gm/dL Albumin/Globulin Ratio (1.0-2.3) ED POC Tests ED POC Tests: ADI - SARS Antigen Negative Radiology Data Radiology results reviewed: Yes I reviewed the patient's radiology results. Radiology results narrative: Chest x-ray IMPRESSION: Moderate consolidated right basilar infiltrate and effusion. Interpreted and Authenticated by: Mack Sloan 11/05/20 EKG Data EKG #1: EKG attestation: Yes I reviewed and interpreted this EKG. and Yes There are no EKG findings of acute coronary syndrome EKG shows normal: sinus rhythm Rate: normal (85) Rhythm: NSR and PAC's [place]/QRS: RBBB, LAHB/LAFB and bifascicular block Heart block present: None ST segment elevation in: None ST segment depression in: None Q waves: None T wave inversions noted in: None Hyperacute T waves: None QTc: normal QRS morphology: Present normal Interpretation: no acute changes Pulse Oximetry Data Pulse Ox %: 89 Interpretation: 89% on 4 L O2 hypoxic for this patient Discharge Plan Patient/Caregiver Discharge Instructions Pt seen by MUSEUM TOUR GUIDE/PA only: No Clinical Impression: Congestive heart failure (CHF), Cellulitis, Pneumonia Patient Disposition: Xfer As Inpt ([facility]) Follow up with: Shawnee Palma PA-C [Primary Care Provider] - Prescriptions: No Action coenzyme Q10 [Co Q-10] 100 mg capsule 100 mg PO QDAY RF: 0 metformin 500 mg tablet 1,000 mg PO BID RF: 0 nitroglycerin 0.4 mg tablet, sublingual 0.4 mg SUBLINGUAL Q5-15M PRN (Reason: Chest Pain) RF: 0 aspirin [Adult Low Dose Aspirin] 81 mg tablet,delayed release (DR/EC) 81 mg PO HS RF: 0 Refresh Tears 0.5 % drops 1 drp OPHTHALMIC 4-6XD PRN (Reason: dry eye(s)) Qty: 30 RF: 0 urea-alpha hydroxy acids 25-6 % cream See Rx Instructions TOPICAL BID RF: 0 atorvastatin 40 MG tablet 40 mg PO HS RF: 0 clopidogrel 75 MG tablet 75 mg PO DAILY RF: 0 tamsulosin 0.4 MG capsule 0.8 mg PO HS Qty: 30 RF: 0 ketotifen fumarate [Alaway] 0.025 % (0.035 %) Drops 1 drp OPHTHALMIC (EYE) BID RF: 0 levothyroxine 25 mcg Tablet 25 mcg PO QDAY RF: 0 ketorolac [Acular] 0.5 % Drops 1 drp OPHTHALMIC (EYE) TID RF: 0 lisinopril 10 mg Tablet 10 mg PO QDAY RF: 0 (DME) pen needle, diabetic [TechLITE Pen Needle] 32 gauge x 5/32" Needle MISCELLANEOUS RF: 0 Vitamin D3 2,000 unit capsule 2,000 units PO DAILY RF: 0 cephalexin [Keflex] 500 mg capsule 500 mg PO QID Qty: 4 RF: 0 Levemir FlexTouch U-100 Insuln 100 unit/mL (3 mL) insulin pen 20 unit SUB-Q QHS Qty: 3 RF: 0 Levemir FlexTouch U-100 Insuln 100 unit/mL (3 mL) insulin pen 15 unit SUB-Q QAM Qty: 3 RF: 0 atenolol 100 mg tablet 100 mg PO DAILY RF: 0 nicotine 21 mg/24 hr patch 24 hour 1 patch TRANSDERMA Q24H Qty: 7 RF: 0 alprazolam [Xanax] 0.25 mg tablet 0.25 mg PO TID PRN (Reason: anxiety) Qty: 9 RF: 0 famotidine [Pepcid] 20 mg tablet 20 mg PO QDAY Qty: 20 RF: 0 Anoro Ellipta 62.5-25 mcg/actuation Blister With Device 1 inh INHALATION QDAY RF: 0
[2020-11-05] MEDS ORDERED: FUROSEMIDE 40 MG/4 ML VIAL IV ONE (08:31)
[2020-11-05 09:19] LABS: Basophils # (Auto) 0.15 K/mcL (0.00-0.30); Basophils % (Auto) 0.9 % (0.0-2.0); Eosinophils # (Auto) 0.33 K/mcL (0.00-0.70); Hematocrit 49.5 % (40.1-51.0); Hemoglobin 14.2 g/dL (13.7-17.5); Lymphocytes % (Auto) 4.9 % (15.5-49.0); Mean Cell Volume 73.2 fL (80.0-100.0); Mean Corpuscular HGB Conc 28.7 g/dL (31.0-36.0); Monocytes # (Auto) 0.74 K/mcL (0.10-0.90); Monocytes % (Auto) 4.5 % (1.0-12.0); Neutrophils % (Auto) 87.7 % (38.0-78.0); Platelet Count 504 K/mcL (140-440); RBC 6.76 M/mcL (4.63-6.08); Red Cell Distribution Width 24.6 % (11.5-14.5); WBC 16.4 K/mcL (4.5-11.0)
--- NOTE | 2020-11-05 09:29 | XRay Report ---
CLINICAL INFORMATION: SOB COMPARISON: 02/10/2020 FINDINGS: Mild cardiomegaly is unchanged. Pacemaker leads in stable satisfactory position. Mediastinum and pulmonary vessels are normal. Moderate right basilar infiltrate and effusion have developed. IMPRESSION: Moderate consolidated right basilar infiltrate and effusion. Interpreted and Authenticated by: Mack Sloan 11/05/20
[2020-11-05 09:41] LABS: ALT/SGPT 20 U/L (<40); AST/SGOT 19 U/L (<40); Albumin 3.6 gm/dL (3.2-5.2); Albumin/Globulin Ratio 1.2 (1.0-2.3); Alkaline Phosphatase 172 U/L (39-117); Bilirubin,Total 1.2 mg/dL (0.1-1.0); Blood Urea Nitrogen 12 mg/dL (8-23); Calcium 8.8 mg/dL (8.6-10.4); Carbon Dioxide 19 mmol/L (22-30); Chloride 103 mmol/L (96-108); Globulin 3.1 gm/dL (2.2-3.7); Glomerular Filtration Rate 49; Glucose 147 mg/dL (70-105)
[2020-11-05] MEDS ORDERED: AZITHROMYCIN 500 MG in DEXTROSE 5% IN WATER 250 ML IV ONE (10:01)
[2020-11-05 10:35] LABS: Erythrocyte Sedimentation Rate 1 mm/hr (0-15)
[2020-11-05] MEDS ORDERED: ALPRAZolam 0.25 MG TABLET PO PRN ×2 (11:59→13:49)
--- NOTE | 2020-11-05 12:15 | Internal Med History&Physical ---
HPI History of Present Illness Patient information: Note initiated : 11/05/20 at 12:07 pm Service Date, if different from initiated Date: [] Patient: Yoni Santaigo 75 y/o M admitted on for Leg Issues. Chief Complaint: [venous stasis, CHF] History of present illness: Mr. Santiago is a 75 year old M history of obstructive sleep apnea on CPAP, COPD on home oxygen therapy, type 2 diabetes, essential hypertension, mixed dyslipidemia, hypothyroidism, presenting with 2-week history of gradually onset, gradually worsening bilateral lower extremities edema with associated skin breakdown. He has been seen by Dr. Rea, and Dr. Rea sent him to our ED for further evaluations today after seeing the worsening nature of his skin breakdowns. He is complaining of moderate to severe, burning/sharp, constant pain of bilateral lower legs exacerbated by walking and no alleviating factors. He denies any fever or chills. He is also committing of general body weakness. Is committing of shortness of breath but at baseline. He denies any cough or sputum production or wheezing. No change in appetite. Constitutional Constitutional: Absent chills, excessive sweating, fatigue, fever(s) and weakness EENT Eyes: Absent blurry vision, change in vision, loss of vision and other visual disturbances Ears: Absent decreased hearing and tinnitus Nose, mouth and throat: Absent abnormal hearing, dry mouth, headache(s), nasal congestion and sore throat Cardiovascular Cardiovascular: Absent chest pain, chest pain at rest, edema, irregular heart rhythm and palpatations Respiratory Respiratory: Present dyspnea; Absent cough, dyspnea on exertion, wheezing, excessive phlegm production and change in phlegm color Gastrointestinal Gastrointestinal: Absent abdominal pain, constipation, diarrhea, nausea and vomiting Musculoskeletal Musculoskeletal: Absent back pain, deformity, limited range of motion, muscle cramps, muscle weakness and numbness Integumentary Integumentary: Present erythema, lesions, skin pain, skin ulcer and wounds; Absent rash Neurological Neurological: Absent focal weakness, headache(s) and numbness Psychiatric Psychiatric: Absent anxiety, depression and hallucinations PFSH PFSH All Active Problems (Updated 11/05/20 @ 12:12 by Richard Deluca MD) Venous stasis dermatitis of both lower extremities (Acute) Stage 1 acute kidney injury (Acute) Abdominal pain (Chronic) Dehydration (Chronic) Renal failure (ARF), acute on chronic (Chronic) Ileus, postoperative (Chronic) Urinary retention (Chronic) Chronic kidney disease, stage 3 (moderate) (Chronic) Diabetes mellitus (Chronic) Hyperlipidemia (Chronic) Obesity (Chronic) Body mass index exceeds 30 (Chronic) Tobacco dependence syndrome (Chronic) Obstructive sleep apnea syndrome (Chronic) Essential hypertension (Chronic) Arteriosclerotic vascular disease (Chronic) Peripheral vascular disease (Chronic) COPD (chronic obstructive pulmonary disease) (Chronic) GERD (gastroesophageal reflux disease) (Chronic) Chronic low back pain (Chronic) Chronic abdominal pain (Chronic) Epigastric pain (Chronic) Intention tremor (Chronic) Skin lesion (Chronic) Memory impairment (Chronic) Diabetic foot ulcer (Chronic) Type II diabetes mellitus with complication, uncontrolled (Chronic) Peripheral vascular disease with claudication (Chronic) Gastroenteritis and colitis, viral (Acute) Hypothyroidism (Acute) Frequent falls (Acute) Dehydration determined by examination (Acute) Hypotension (Acute) Polypharmacy (Acute) Hyperosmolar non-ketotic state due to type 2 diabetes mellitus (Acute) Acute kidney injury (Acute) Fall (Acute) Cellulitis of right elbow (Acute) Chronic hip pain (Acute) Degenerative joint disease of left hip (Acute) No-show for appointment (Acute) Acute anxiety (Acute) Gastritis (Acute) Congestive heart failure (CHF) (Acute) Cellulitis (Acute) Pneumonia (Acute) Medical History (Updated 11/05/20 @ 12:12 by Richard Deluca MD) Abdominal pain Arteriosclerotic vascular disease 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 Both are slightly above the upper limit of normal As he frequently shows up dehydrated from hypoglycemia this is the reason his KATHIE inhibitor was stopped to prevent acute renal failure under the situations Chronic low back pain COPD (chronic obstructive pulmonary disease) Dehydration Diabetes mellitus Diabetic foot ulcer Epigastric pain Essential hypertension GERD (gastroesophageal reflux disease) Hyperlipidemia Intention tremor Bilateral Hands Memory impairment Obesity Obstructive sleep apnea syndrome Peripheral vascular disease Peripheral vascular disease with claudication Carotid and lower extremity large vessel Dx No retinopathy or nephropathy to suggest small vessel disease Renal failure (ARF), acute on chronic Skin lesion Tobacco dependence syndrome Type II diabetes mellitus with complication, uncontrolled Peripheral neuropathy and PVD HTN No evidence of Diabetic nephropathy Frequently uncontrolled with blood sugars greater than 400 Surgical History History of cardiac catheterization (~10/16/18) S/P arterial stent Femoral Family History Brother Malignant tumor of pancreas Father Pulmonary emphysema [place] (myocardial infarction) Mother FHx: cholecystectomy Hx of appendectomy H/O knee surgery Social History (Updated 06/24/19 @ 18:02 by Dawson Griffin MD) occupational status: disabled sexually active: No physical activity: none alcohol intake frequency: does not drink substance use type: does not use seatbelt use: always working smoke detector in home: Yes firearms in home: No MEDS/ALLERGIES Home Medications and Allergies Home Medications Medication Instructions Recorded Confirmed Type atorvastatin 40 mg PO HS 12/16/16 02/10/20 History clopidogrel 75 mg PO DAILY 12/16/16 02/10/20 History coenzyme Q10 100 mg capsule 100 mg PO QDAY 11/05/18 02/10/20 History metformin 500 mg tablet 1,000 mg PO BID 11/05/18 02/10/20 History nitroglycerin 0.4 mg sublingual 0.4 mg SUBLINGUAL Q5-15M PRN 11/05/18 02/10/20 History tablet aspirin 81 mg tablet,delayed 81 mg PO HS tab 11/25/18 02/10/20 History release carboxymethylcellulose sodium 0.5 1 drp OPHTHALMIC 4-6XD PRN #30 ml 06/17/19 02/10/20 Rx % eye drops urea 25 %-alpha hydroxy acids 6 % See Rx Instructions TOPICAL BID g 06/24/19 02/10/20 History topical cream Vitamin D3 2,000 units PO DAILY 02/13/20 02/13/20 History ketorolac [Acular] 1 drp OPHTHALMIC (EYE) TID 02/13/20 02/13/20 History ketotifen fumarate [Alaway] 1 drp OPHTHALMIC (EYE) BID 02/13/20 02/13/20 History levothyroxine 25 mcg PO QDAY 02/13/20 02/13/20 History lisinopril 10 mg PO QDAY 02/13/20 02/13/20 History pen needle, diabetic [TechLITE Pen 02/13/20 02/13/20 History Needle] tamsulosin 0.8 mg PO HS #30 cap 02/13/20 Rx atenolol 100 mg PO DAILY 02/15/20 02/15/20 History cephalexin [Keflex] 500 mg PO QID #4 cap 02/15/20 Rx insulin detemir U-100 [Levemir 15 unit SUB-Q QAM #3 ml 02/15/20 Rx FlexTouch U-100 Insuln] insulin detemir U-100 [Levemir 20 unit SUB-Q QHS #3 ml 02/15/20 Rx FlexTouch U-100 Insuln] nicotine 1 patch TRANSDERMA Q24H #7 each 02/16/20 Rx alprazolam [Xanax] 0.25 mg PO TID PRN #9 tab 05/28/20 11/05/20 Rx famotidine [Pepcid] 20 mg PO QDAY #20 tab 05/28/20 Rx umeclidinium-vilanterol [Anoro 1 inh INHALATION QDAY 11/05/20 11/05/20 History Ellipta] Allergies Allergy/AdvReac Type Severity Reaction Status Date / Time lovastatin Allergy Unknown Unknown Verified 11/05/20 07:25 niacin Allergy Unknown Unknown Verified 11/05/20 07:25 morphine [MORPHINE] AdvReac Mild Nausea/Vomi Verified 11/05/20 07:25 ting EXAM Constitutional Vitals: Temp Pulse Resp BP Pulse Ox 36.1 C L 84 22 118/74 89 L 11/05/20 07:25 11/05/20 12:01 11/05/20 07:25 11/05/20 12:01 11/05/20 12:01 General appearance: cooperative and no acute distress Head Head exam: Present atraumatic and normocephalic Eye Eye exam: Present EOMI and PERRL ENT ENT exam: Present mucous membranes moist, normal exam and normal external ear exam Additional comments: Oxygen mask in place Neck Neck exam: Present normal inspection; Absent lymphadenopathy, tenderness and thyromegaly Respiratory Respiratory exam: Present decreased breath sounds; Absent accessory muscle use, respiratory distress and wheezes Cardiovascular Cardiovascular exam: Present normal rate and rhythm; Absent JVD GI/Abdominal GI/Abdominal exam: Present normal bowel sounds and soft; Absent organomegaly and tenderness Rectal Rectal exam: Present deferred Extremities Exam Extremities exam: Present full ROM, normal capillary refill and normal inspection; Absent tenderness Neurological Exam Neurological exam: Present alert, CN II-XII intact and oriented X3; Absent motor sensory deficit Psychiatric Psychiatric exam: Present normal affect and normal mood; Absent anxious and depressed Skin Skin exam: Present abrasion, dry, erythema, rash and vesicles; Absent intact DATA Data Completed and Pending Labs: Labs from last 24 hours 11/05/20 11/05/20 11/05/20 07:45 07:45 07:45 WBC RBC Hgb Hct MCV MCH MCHC RDW Plt Count MPV Neut % (Auto) Lymph % (Auto) [place] % (Auto) Eos % (Auto) Baso % (Auto) Lymph # (Auto) [place] # (Auto) Eos # (Auto) Baso # (Auto) Absolute Neutrophils ESR VBG Lactic Acid 1.6 Sodium 138 Potassium 4.1 Chloride 103 Carbon Dioxide 19 L Anion Gap 16.0 BUN 12 Creatinine 1.4 H GFR Calculation 49 Glucose 147 H Calcium 8.8 Total Bilirubin 1.2 H AST 19 ALT 20 Alkaline Phosphatase 172 H Troponin T 0.02 C-Reactive Protein 1.80 H NT-Pro-B Natriuret Pep 5183.0 H Total Protein 6.7 Albumin 3.6 Globulin 3.1 Albumin/Globulin Ratio 1.2 11/05/20 07:45 WBC 16.4 H RBC 6.76 H Hgb 14.2 Hct 49.5 MCV 73.2 L MCH 21.0 L MCHC 28.7 L RDW 24.6 H Plt Count 504 H MPV Neut % (Auto) 87.7 H Lymph % (Auto) 4.9 L [place] % (Auto) 4.5 Eos % (Auto) 2.0 Baso % (Auto) 0.9 Lymph # (Auto) 0.80 L [place] # (Auto) 0.74 Eos # (Auto) 0.33 Baso # (Auto) 0.15 Absolute Neutrophils 14.40 H ESR 1 VBG Lactic Acid Sodium Potassium Chloride Carbon Dioxide Anion Gap BUN Creatinine GFR Calculation Glucose Calcium Total Bilirubin AST ALT Alkaline Phosphatase Troponin T C-Reactive Protein NT-Pro-B Natriuret Pep Total Protein Albumin Globulin Albumin/Globulin Ratio A/P Assessment and plan (1) Stage 1 acute kidney injury: Status: Acute (2) COPD (chronic obstructive pulmonary disease): Status: Chronic (3) Essential hypertension: Status: Chronic (4) Obstructive sleep apnea syndrome: Status: Chronic (5) Tobacco dependence syndrome: Status: Chronic (6) Hyperlipidemia: Status: Chronic (7) Type II diabetes mellitus with complication, uncontrolled: Status: Chronic Comment: Peripheral neuropathy and PVD HTN No evidence of Diabetic nephropathy Frequently uncontrolled with blood sugars greater than 400 (8) Hypothyroidism: Status: Acute (9) Congestive heart failure (CHF): Status: Acute Qualifiers: Heart failure chronicity: unspecified Heart failure type: unspecified Qualified Code(s): I50.9 - Heart failure, unspecified (10) Venous stasis dermatitis of both lower extremities: Status: Acute Narrative A/P Narrative: Assessment and Plans: 1. Venous stasis dermatitis bilateral lower extremities: DDx: diabetic feet ulcer Admit to inpatient med surg Dr. Fuller consulted, recs. appreciated Dr. Rea/Dr. Dow will continue to follow the case Blood culture Lactic acid Procalcitonin Vancomycin Zosyin cbc w/ auto diff in the AM to trend WBC Morphine IV PRN severe pain Tylenol PRN fever/mild pain Oxycodone PRN moderate pain Control of leg swelling, see #2 2. CHF: Atenolol Hold Lisinopril in face of DERRELL Lasix 40mg IV BID Intake and output Daily weigh 2L/day fluid restriction 2D echocardiogram 3. COPD: Continue bronchodilators Supplemental oxygen therapy titrate to achieve spo2>=88% (COPD-er) 4. EDI: Continue CPAP at night while sleeping 5. T2DM: HgA1c Hold any oral hypoglycemics Lantus AM and HS SSI AC HS Accu Chek AC HS Hypoglycemia protocol Diabetic diet 6. Essential HTN: Atenolol Hold Lisinopril in face of DERRELL Lasix 40mg IV BID 7. Mixed dyslipidemia: Continue statin therapy 8. Hypothyroidism: Continue thyroid replacement therapy 9. Stage 1 acute kidney injury: Avoid nephrotoxic agents; hold Lisinopril Saline lock Repeat CMP in the morning to trend kidney functions GI ppx: continue oral PPI from home regimen DVT ppx: Heparin Code status: Full Prognosis: guarded Disposition: inpatient med surg; PT OT Time Spent With Patient Time: Total time spent is greater than 50% in coordination of care (as documented) at patient's floor/unit and/or counseling patient: Total time spent with greater than 50% in coordination of care (as documented) at patient's floor/unit and/or counseling patient:: Greater than 35 minutes
--- NOTE | 2020-11-05 13:06 | Orthopedic Consult Note ---
HPI Data of Consult Consult date: 11/05/20 Primary Care Provider: Shawnee Palma PA-C Consult Narrative Patient Information: Note initiated : 11/05/20 at 1:02 pm Service Date, if different from initiated Date: [] Patient: Yoni Santiago 75 y/o M admitted on 11/05/20 for Leg Issues. Chief Complaint: [sore legs] History: Yoni Santiago is a 75-year-old diabetic with acute kidney injury. He presented to the hospital with severe pain in his bilateral lower extremities. He has had a stent placed in [place] on the right lower extremity. He reports that the vascular surgeon told him that if he was to have the left side stented it would result in amputation of his left lower extremity. His feet feel very cold today and they are red. He has chronic issues with swelling in the bilateral lower extremities. cc:: CC: Richard Deluca MD [facility] All Active Problems (Updated 11/05/20 @ 12:12 by Richard Deluca MD) Venous stasis dermatitis of both lower extremities (Acute) Stage 1 acute kidney injury (Acute) Abdominal pain (Chronic) Dehydration (Chronic) Renal failure (ARF), acute on chronic (Chronic) Ileus, postoperative (Chronic) Urinary retention (Chronic) Chronic kidney disease, stage 3 (moderate) (Chronic) Diabetes mellitus (Chronic) Hyperlipidemia (Chronic) Obesity (Chronic) Body mass index exceeds 30 (Chronic) Tobacco dependence syndrome (Chronic) Obstructive sleep apnea syndrome (Chronic) Essential hypertension (Chronic) Arteriosclerotic vascular disease (Chronic) Peripheral vascular disease (Chronic) COPD (chronic obstructive pulmonary disease) (Chronic) GERD (gastroesophageal reflux disease) (Chronic) Chronic low back pain (Chronic) Chronic abdominal pain (Chronic) Epigastric pain (Chronic) Intention tremor (Chronic) Skin lesion (Chronic) Memory impairment (Chronic) Diabetic foot ulcer (Chronic) Type II diabetes mellitus with complication, uncontrolled (Chronic) Peripheral vascular disease with claudication (Chronic) Gastroenteritis and colitis, viral (Acute) Hypothyroidism (Acute) Frequent falls (Acute) Dehydration determined by examination (Acute) Hypotension (Acute) Polypharmacy (Acute) Hyperosmolar non-ketotic state due to type 2 diabetes mellitus (Acute) Acute kidney injury (Acute) Fall (Acute) Cellulitis of right elbow (Acute) Chronic hip pain (Acute) Degenerative joint disease of left hip (Acute) No-show for appointment (Acute) Acute anxiety (Acute) Gastritis (Acute) Congestive heart failure (CHF) (Acute) Cellulitis (Acute) Pneumonia (Acute) Medical History (Updated 11/05/20 @ 12:12 by Richard Deluca MD) Abdominal pain Arteriosclerotic vascular disease 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 Both are slightly above the upper limit of normal As he frequently shows up dehydrated from hypoglycemia this is the reason his KATHIE inhibitor was stopped to prevent acute renal failure under the situations Chronic low back pain COPD (chronic obstructive pulmonary disease) Dehydration Diabetes mellitus Diabetic foot ulcer Epigastric pain Essential hypertension GERD (gastroesophageal reflux disease) Hyperlipidemia Intention tremor Bilateral Hands Memory impairment Obesity Obstructive sleep apnea syndrome Peripheral vascular disease Peripheral vascular disease with claudication Carotid and lower extremity large vessel Dx No retinopathy or nephropathy to suggest small vessel disease Renal failure (ARF), acute on chronic Skin lesion Tobacco dependence syndrome Type II diabetes mellitus with complication, uncontrolled Peripheral neuropathy and PVD HTN No evidence of Diabetic nephropathy Frequently uncontrolled with blood sugars greater than 400 Surgical History History of cardiac catheterization (~10/16/18) S/P arterial stent Femoral Family History Brother Malignant tumor of pancreas Father Pulmonary emphysema [place] (myocardial infarction) Mother FHx: cholecystectomy Hx of appendectomy H/O knee surgery Social History (Updated 06/24/19 @ 18:02 by Dawson Griffin MD) occupational status: disabled sexually active: No physical activity: none alcohol intake frequency: does not drink substance use type: does not use seatbelt use: always working smoke detector in home: Yes firearms in home: No MEDS/ALLERGIES Home Medications and Allergies Home Medications Medication Instructions Recorded Confirmed Type atorvastatin 40 mg PO HS 12/16/16 11/05/20 History clopidogrel 75 mg PO DAILY 12/16/16 11/05/20 History coenzyme Q10 100 mg capsule 100 mg PO QDAY 11/05/18 11/05/20 History metformin 500 mg tablet 1,000 mg PO BID 11/05/18 02/10/20 History nitroglycerin 0.4 mg sublingual 0.4 mg SUBLINGUAL Q5-15M PRN 11/05/18 02/10/20 History tablet aspirin 81 mg tablet,delayed 81 mg PO HS tab 11/25/18 11/05/20 History release carboxymethylcellulose sodium 0.5 1 drp OPHTHALMIC 4-6XD PRN #30 ml 06/17/19 02/10/20 Rx % eye drops urea 25 %-alpha hydroxy acids 6 % See Rx Instructions TOPICAL BID g 06/24/19 02/10/20 History topical cream Vitamin D3 2,000 units PO DAILY 02/13/20 02/13/20 History ketorolac [Acular] 1 drp OPHTHALMIC (EYE) TID 02/13/20 02/13/20 History ketotifen fumarate [Alaway] 1 drp OPHTHALMIC (EYE) BID 02/13/20 02/13/20 History levothyroxine 25 mcg PO QDAY 02/13/20 02/13/20 History lisinopril 10 mg PO QDAY 02/13/20 02/13/20 History pen needle, diabetic [TechLITE Pen 02/13/20 02/13/20 History Needle] tamsulosin 0.8 mg PO HS #30 cap 02/13/20 Rx atenolol 100 mg PO DAILY 02/15/20 11/05/20 History cephalexin [Keflex] 500 mg PO QID #4 cap 02/15/20 Rx insulin detemir U-100 [Levemir 15 unit SUB-Q QAM #3 ml 02/15/20 Rx FlexTouch U-100 Insuln] insulin detemir U-100 [Levemir 20 unit SUB-Q QHS #3 ml 02/15/20 Rx FlexTouch U-100 Insuln] nicotine 1 patch TRANSDERMA Q24H #7 each 02/16/20 Rx alprazolam [Xanax] 0.25 mg PO TID PRN #9 tab 05/28/20 11/05/20 Rx famotidine [Pepcid] 20 mg PO QDAY #20 tab 05/28/20 Rx fexofenadine 180 mg PO QDAY 11/05/20 11/05/20 History umeclidinium-vilanterol [Anoro 1 inh INHALATION QDAY 11/05/20 11/05/20 History Ellipta] Allergies Allergy/AdvReac Type Severity Reaction Status Date / Time lovastatin Allergy Unknown Unknown Verified 11/05/20 07:25 niacin Allergy Unknown Unknown Verified 11/05/20 07:25 morphine [MORPHINE] AdvReac Mild Nausea/Vomi Verified 11/05/20 07:25 ting Physical Examination Narrative Narrative: Narrative: Ankle & Foot bilateral: Ankle appearance: swelling, erythema and other (Pitting edema +2, bilateral bilateral lower extremity, nonpalpable dorsalis pedis and posterior tibial artery pulses. Skin feels very cold to bilateral toes with purplish discoloration.) A/P Time Spent With Patient Time: Total time spent is greater than 50% in coordination of care (as documented) at patient's floor/unit and/or counseling patient: Patient is suffering from effects of bilateral arterial disease. Venous/lympha tic/arterial compromise. Leading to claudication symptoms erythema and edema bilateral lower extremities. Given patient's history of diabetes, kidney disease, arterial sclerosis of her bilateral extremity the vascular compromise of the legs is combination of all 3. Patient may benefit from vascular consultation of follow-up with his physicians in [place] and may require complete comprehensive work-up/angiography with stent placement/bypass and/or amputation we will continue to follow for acute changes of infection in the meanwhile continue IV antibiotic therapy.
[2020-11-05 13:18] LABS: Appearance,Urine CLEAR (Clear); Bilirubin,Urine Negative (Negative); Color,Urine YELLOW; Culture Indicated,Urine No; Glucose,Urine (UA) >=500 mg/dL (Negative); Ketones,Urine Negative (Negative); Leukocyte Esterase,Urine Negative /ug (Negative); Mucus,Urine FEW /hpf; Nitrate,Urine Negative (Negative); Protein,Urine Negative (Negative); Specific Gravity,Urine 1.008 (1.000-1.035); Urine Blood Negative (Negative); Urine Hyaline Cast 18 /lph (0-2); Urine RBC < 1 /hpf (0-3); Urine Squamous Epithelial Cell 0 /hpf (0-4); Urine WBC < 1 /hpf (0-4); Urobilinogen,Urine Negative
--- NOTE | 2020-11-05 13:30 | EKG ---
[facility] Test Date: 2020-11-05 Pat Name: Yoni Santiago Department: ED Room: Gender: Male Adventure Guide: LD : 1945 Requested By: Nickolas Medeiros Order Number: [id number] Reading MD: Mando Ritter Measurements Intervals [place] Rate: 85 P: 56 NE: 208 QRS: -73 QRSD: 144 T: 57 QT: 412 QTc: 490 Interpretive Statements SINUS RHYTHM ATRIAL PREMATURE COMPLEX RBBB Electronically Signed On 11-05-2020 13:30:32 PDT by Mando Ritter /store/[email or web address]/[id number]
[2020-11-05] MEDS ORDERED: DEXTROSE 31 GM ORAL.SUSP PO PRN (13:49)
[2020-11-05] MEDS ORDERED: morphine 4 MG/ML VIAL IV PRN (13:49)
[2020-11-05] MEDS ORDERED: VANCOMYCIN PER PHARMACY IV SCH (13:49)
[2020-11-05] MEDS ORDERED: DEXTROSE 50% 50 ML VIAL IV PRN (13:49)
[2020-11-05] MEDS ORDERED: IPRATROPIUM/ALBUTEROL 3 ML AMPUL.NEB NEB PRN (13:49)
[2020-11-05] MEDS ORDERED: ONDANSETRON 4 MG/2 ML VIAL IV PRN (13:49)
[2020-11-05] MEDS ORDERED: ZOLPIDEM 5 MG TABLET PO PRN (13:49)
--- NOTE | 2020-11-05 14:04 | Infectious Disease Consult ---
HPI Data of Consult Consult date: 11/05/20 Primary Care Provider: Shawnee Palma PA-C Consult Narrative Patient Information: Note initiated : 11/05/20 at 2:03 pm Service Date, if different from initiated Date: [11/05/20] Patient: Yoni Santiago 75 y/o M admitted on 11/05/20 for Leg Issues. Chief Complaint: [ankle pain with walking] Yoni is a 75-year-old diabetic with oxygen dependent COPD. His chief complaint is leg pain with walking. He has had redness on the lower extremities bilateral for 2 months. No complaints of fevers or chills. He continues to smoke tobacco at 1 pack/day. He denies animals at home. No history of pneumonia. asked for consultation with regards to leg redness. His admit creatinine today 1.4 CRP 1.8 white count 16.4 and sed rate 1. He has received a single dose of Vanco with continued therapy of Zosyn 3.375 g IV every 8 hours. He has had diabetes for approximately 2 years. He is afebrile at 97.4. cc:: CC: Richard Deluca MD Review of Systems Review of systems: General: No fevers or chills. HEENT: He is somnolent but arousable. He will answer questions. He appears hard of hearing. Face mask present but he typically uses 2 L by nasal cannula at home. No neck complaints. Pulmonary: No complaints of cough. Cardiac: No chest pain. GI: No abdominal pain or diarrhea. no dysuria. Extremities: Ankle pain with ambulation as above. He does report increased leg swelling over the last 2 weeks. PFSH PFSH All Active Problems (Updated 11/05/20 @ 14:18 by Mando Fuller MD) Edema (Acute) Venous stasis dermatitis of both lower extremities (Acute) Stage 1 acute kidney injury (Acute) Abdominal pain (Chronic) Dehydration (Chronic) Renal failure (ARF), acute on chronic (Chronic) Ileus, postoperative (Chronic) Urinary retention (Chronic) Chronic kidney disease, stage 3 (moderate) (Chronic) Diabetes mellitus (Chronic) Hyperlipidemia (Chronic) Obesity (Chronic) Body mass index exceeds 30 (Chronic) Tobacco dependence syndrome (Chronic) Obstructive sleep apnea syndrome (Chronic) Essential hypertension (Chronic) Arteriosclerotic vascular disease (Chronic) Peripheral vascular disease (Chronic) COPD (chronic obstructive pulmonary disease) (Chronic) GERD (gastroesophageal reflux disease) (Chronic) Chronic low back pain (Chronic) Chronic abdominal pain (Chronic) Epigastric pain (Chronic) Intention tremor (Chronic) Skin lesion (Chronic) Memory impairment (Chronic) Diabetic foot ulcer (Chronic) Type II diabetes mellitus with complication, uncontrolled (Chronic) Peripheral vascular disease with claudication (Chronic) Gastroenteritis and colitis, viral (Acute) Hypothyroidism (Acute) Frequent falls (Acute) Dehydration determined by examination (Acute) Hypotension (Acute) Polypharmacy (Acute) Hyperosmolar non-ketotic state due to type 2 diabetes mellitus (Acute) Acute kidney injury (Acute) Fall (Acute) Cellulitis of right elbow (Acute) Chronic hip pain (Acute) Degenerative joint disease of left hip (Acute) No-show for appointment (Acute) Acute anxiety (Acute) Gastritis (Acute) Congestive heart failure (CHF) (Acute) Cellulitis (Acute) Pneumonia (Acute) Medical History (Updated 11/05/20 @ 14:18 by Mando Fuller MD) Abdominal pain Arteriosclerotic vascular disease 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 Both are slightly above the upper limit of normal As he frequently shows up dehydrated from hypoglycemia this is the reason his KATHIE inhibitor was stopped to prevent acute renal failure under the situations Chronic low back pain COPD (chronic obstructive pulmonary disease) Dehydration Diabetes mellitus Patient reports diabetes duration of 2 years. Diabetic foot ulcer Epigastric pain Essential hypertension GERD (gastroesophageal reflux disease) Hyperlipidemia Intention tremor Bilateral Hands Memory impairment Obesity Obstructive sleep apnea syndrome Peripheral vascular disease Peripheral vascular disease with claudication Patient has had previous lower extremity stenting. I would recommend repeat vascular evaluation. Renal failure (ARF), acute on chronic Skin lesion Tobacco dependence syndrome Type II diabetes mellitus with complication, uncontrolled Peripheral neuropathy and PVD HTN No evidence of Diabetic nephropathy Frequently uncontrolled with blood sugars greater than 400 Surgical History History of cardiac catheterization (~10/16/18) S/P arterial stent Femoral Family History Brother Malignant tumor of pancreas Father Pulmonary emphysema [place] (myocardial infarction) Mother FHx: cholecystectomy Hx of appendectomy H/O knee surgery Social History occupational status: disabled sexually active: No physical activity: none alcohol intake frequency: does not drink substance use type: does not use seatbelt use: always working smoke detector in home: Yes firearms in home: No MEDS/ALLERGIES Home Medications and Allergies Home Medications Medication Instructions Recorded Confirmed Type atorvastatin 40 mg PO HS 12/16/16 11/05/20 History clopidogrel 75 mg PO DAILY 12/16/16 11/05/20 History coenzyme Q10 100 mg capsule 100 mg PO QDAY 11/05/18 11/05/20 History metformin 500 mg tablet 1,000 mg PO BID 11/05/18 02/10/20 History nitroglycerin 0.4 mg sublingual 0.4 mg SUBLINGUAL Q5-15M PRN 11/05/18 02/10/20 History tablet aspirin 81 mg tablet,delayed 81 mg PO HS tab 11/25/18 11/05/20 History release carboxymethylcellulose sodium 0.5 1 drp OPHTHALMIC 4-6XD PRN #30 ml 06/17/19 02/10/20 Rx % eye drops urea 25 %-alpha hydroxy acids 6 % See Rx Instructions TOPICAL BID g 06/24/19 02/10/20 History topical cream Vitamin D3 2,000 units PO DAILY 02/13/20 02/13/20 History ketorolac [Acular] 1 drp OPHTHALMIC (EYE) TID 02/13/20 02/13/20 History ketotifen fumarate [Alaway] 1 drp OPHTHALMIC (EYE) BID 02/13/20 02/13/20 History levothyroxine 25 mcg PO QDAY 02/13/20 02/13/20 History lisinopril 10 mg PO QDAY 02/13/20 02/13/20 History pen needle, diabetic [TechLITE Pen 02/13/20 02/13/20 History Needle] tamsulosin 0.8 mg PO HS #30 cap 02/13/20 Rx atenolol 100 mg PO DAILY 02/15/20 11/05/20 History cephalexin [Keflex] 500 mg PO QID #4 cap 02/15/20 Rx insulin detemir U-100 [Levemir 15 unit SUB-Q QAM #3 ml 02/15/20 Rx FlexTouch U-100 Insuln] insulin detemir U-100 [Levemir 20 unit SUB-Q QHS #3 ml 02/15/20 Rx FlexTouch U-100 Insuln] nicotine 1 patch TRANSDERMA Q24H #7 each 02/16/20 Rx alprazolam [Xanax] 0.25 mg PO TID PRN #9 tab 05/28/20 11/05/20 Rx famotidine [Pepcid] 20 mg PO QDAY #20 tab 05/28/20 Rx fexofenadine 180 mg PO QDAY 11/05/20 11/05/20 History umeclidinium-vilanterol [Anoro 1 inh INHALATION QDAY 11/05/20 11/05/20 History Ellipta] Allergies Allergy/AdvReac Type Severity Reaction Status Date / Time lovastatin Allergy Unknown Unknown Verified 11/05/20 07:25 niacin Allergy Unknown Unknown Verified 11/05/20 07:25 morphine [MORPHINE] AdvReac Mild Nausea/Vomi Verified 11/05/20 07:25 ting Physical Examination Vital Signs Vital signs: Temp Pulse Resp BP Pulse Ox 97.4 F 75 22 140/73 90 11/05/20 12:54 11/05/20 12:54 11/05/20 12:54 11/05/20 12:54 11/05/20 13:49 Afebrile. Additional Exam Additional exam: General: Appears somnolent but arousable. Hard of hearing. HEENT: Anicteric sclera. He does follow simple commands. Mouth dry. Neck is supple no cervical adenopathy. Lungs: Clear bilaterally without wheezing. Heart: Regular rate and rhythm without murmur. Abdomen: Soft nontender positive bowel sounds. Extremities: 3+ lower extremity edema. Positive onychomycosis. No plantar ulcerations. No tenderness with ankle movement. No knee effusions. Bilateral dorsal foot ankle erythema to mid suazo. Anterior shins appear to be more involved. Circular areas of erythema around a few abraded injuries. Superficial. Areas of erythema on lower extremities are not warm. I do not appreciate dorsalis pedis pulses bilaterally. Feet are nontender to palpation. Erythema appears more chronic than acute. Not typical for cellulitis appear ance of bilaterally. Results Laboratory Findings CBC and BMP: 11/05/20 07:45 11/05/20 07:45 Abnormal lab findings: Abnormal Labs 11/05/20 11/05/20 11/05/20 07:45 07:45 10:52 WBC 16.4 H RBC 6.76 H MCV 73.2 L MCH 21.0 L MCHC 28.7 L RDW 24.6 H Plt Count 504 H Neut % (Auto) 87.7 H Lymph % (Auto) 4.9 L Lymph # (Auto) 0.80 L Absolute Neutrophils 14.40 H Carbon Dioxide 19 L Creatinine 1.4 H Glucose 147 H Total Bilirubin 1.2 H Alkaline Phosphatase 172 H C-Reactive Protein 1.80 H NT-Pro-B Natriuret Pep 5183.0 H Urine Glucose (UA) >=500 A Hyaline Casts 18 H Urine Mucus Few A Creatinine 1.4 CRP 1.8 sed rate 1 White count 16.4 MCV 73 H&H 14/49. A/P Assessment and plan (1) Venous stasis dermatitis of both lower extremities: Status: Acute Comment: Yoni is a 75-year-old man with multiple medical problems. He reports lower extremity redness for 2 months bilateral. The appearance is most consistent with stasis dermatitis. However, could consider cellulitis. It would be atypical for cellulitis bilateral with his cool extremities. He has low sed rate, low CRP, and without fever. However, he does have an elevated white blood cell count to 16.4. This is the only finding that is consistent with cellulitis. He has been started on IV Zosyn. No further vancomycin recommended but I would recommend a MRSA screen. Stasis dermatitis can be treated t opically with triamcinolone cream. It would be reasonable to continue Zosyn for 48 hours with transition to oral Augmentin for 1 week. Monitor for improving redness but I suspect that the redness represents stasis dermatitis rather than cellulitis. (2) Diabetes mellitus: Status: Chronic Comment: Patient reports diabetes duration of 2 years. (3) Peripheral vascular disease with claudication: Status: Chronic Comment: Patient has had previous lower extremity stenting. I would recommend repeat vascular evaluation. (4) Edema: Status: Acute Comment: Dr. DELUCA managing with diuretics. Time Spent With Patient Time: Total time spent is greater than 50% in coordination of care (as documented) at patient's floor/unit and/or counseling patient:
[2020-11-05] MEDS ORDERED: VANCOMYCIN 1,500 MG in 0.9 % SODIUM CHLORIDE 500 ML IV ONE (14:15)
[2020-11-05] MEDS: PIPERACILLIN SODIUM/TAZOBACTAM 3.375 GM in DEXTROSE 5% IN WATER 50 ML IV SCH ×2 (15:11→22:10)
[2020-11-05] MEDS: 0.9 % SODIUM CHLORIDE 10 ML SYRINGE IV SCH ×2 (15:11→22:00)
[2020-11-05 15:29] LABS: Estimated Average Glucose(eAG) 143 mg/dL; Hemoglobin A1C 6.6 % Hgb (4.0-6.0)
[2020-11-05] MEDS: FUROSEMIDE 40 MG/4 ML VIAL IV SCH (15:39)
[2020-11-05] MEDS: INSULIN LISPRO 1 UNIT/0.01 ML UNIT SQ SCH ×2 (15:41→20:48)
[2020-11-05] MEDS: HEPARIN 5,000 UNIT/ML VIAL SQ SCH (20:39)
[2020-11-05] MEDS: ACETAMINOPHEN 325 MG TABLET PO PRN (20:39)
[2020-11-05] MEDS: TAMSULOSIN 0.4 MG CAPSULE PO SCH (20:39)
[2020-11-05] MEDS: oxyCODONE HCL 5 MG TABLET PO PRN (20:40)
[2020-11-05] MEDS: DOCUSATE SODIUM 100 MG CAPSULE PO SCH (20:40)
[2020-11-05] MEDS: SENNOSIDES 1 TABLET PO SCH (20:40)
[2020-11-05] MEDS: NICOTINE 21 MG PATCH TOPICAL SCH (20:41)
[2020-11-05] MEDS: KETOROLAC TROMETHAMINE 5 ML DROPS OP SCH (20:49)
[2020-11-05] MEDS: INSULIN GLARGINE, HUMAN 1 UNIT/0.01 ML SQ SCH (21:00)
[2020-11-06] MEDS: PIPERACILLIN SODIUM/TAZOBACTAM 3.375 GM in DEXTROSE 5% IN WATER 50 ML IV SCH ×3 (06:00→22:02)
[2020-11-06] MEDS: 0.9 % SODIUM CHLORIDE 10 ML SYRINGE IV SCH ×3 (06:00→22:00)
[2020-11-06 06:57] LABS: Basophils # (Auto) 0.11 K/mcL (0.00-0.30); Basophils % (Auto) 0.9 % (0.0-2.0); Eosinophils # (Auto) 0.31 K/mcL (0.00-0.70); Eosinophils % (Auto) 2.4 % (0.0-7.0); Hematocrit 50.9 % (40.1-51.0); Lymphocytes # (Auto) 0.83 K/mcL (1.50-4.80); Lymphocytes % (Auto) 6.5 % (15.5-49.0); Mean Cell Volume 73.6 fL (80.0-100.0); Mean Corpuscular HGB Conc 29.5 g/dL (31.0-36.0); Monocytes % (Auto) 4.7 % (1.0-12.0); Neutrophils % (Auto) 85.5 % (38.0-78.0); Platelet Count 478 K/mcL (140-440); RBC 6.92 M/mcL (4.63-6.08); Red Cell Distribution Width 24.3 % (11.5-14.5); WBC 12.7 K/mcL (4.5-11.0)
[2020-11-06] MEDS: LEVOTHYROXINE 25 MCG TABLET PO SCH (07:37)
[2020-11-06] MEDS: FUROSEMIDE 40 MG/4 ML VIAL IV SCH ×2 (07:37→16:39)
[2020-11-06] MEDS: INSULIN LISPRO 1 UNIT/0.01 ML UNIT SQ SCH ×4 (07:41→20:21)
[2020-11-06] MEDS: HEPARIN 5,000 UNIT/ML VIAL SQ SCH ×2 (08:18→20:19)
[2020-11-06] MEDS: INSULIN GLARGINE, HUMAN 1 UNIT/0.01 ML SQ SCH ×2 (08:19→20:22)
[2020-11-06] MEDS: DOCUSATE SODIUM 100 MG CAPSULE PO SCH ×2 (08:20→20:20)
[2020-11-06] MEDS: ACETAMINOPHEN 325 MG TABLET PO PRN (08:20)
[2020-11-06] MEDS: FEXOFENADINE 180 MG TABLET PO SCH (08:20)
[2020-11-06] MEDS: VITAMIN D3 1,000 UNIT TABLET PO SCH (08:20)
[2020-11-06] MEDS: TAMSULOSIN 0.4 MG CAPSULE PO SCH ×2 (08:20→20:20)
[2020-11-06] MEDS: ATENOLOL 50 MG TABLET PO SCH (08:20)
[2020-11-06] MEDS: ANORO ELLIPTA INH SCH (08:22)
[2020-11-06] MEDS: KETOROLAC TROMETHAMINE 5 ML DROPS OP SCH ×3 (08:22→20:36)
[2020-11-06] MEDS: COENZYME Q10 100 MG PO SCH (08:23)
[2020-11-06] MEDS ORDERED: VILANTEROL INH SCH (09:00)
[2020-11-06] MEDS ORDERED: UMECLIDINIUM INH SCH (09:00)
[2020-11-06] MEDS ORDERED: VANCOMYCIN 1,000 MG in 0.9 % SODIUM CHLORIDE 250 ML IV SCH (09:00)
[2020-11-06 09:54] LABS: ALT/SGPT 19 U/L (<40); AST/SGOT 17 U/L (<40); Albumin 3.6 gm/dL (3.2-5.2); Albumin/Globulin Ratio 1.2 (1.0-2.3); Alkaline Phosphatase 162 U/L (39-117); Bilirubin,Total 0.9 mg/dL (0.1-1.0); Blood Urea Nitrogen 14 mg/dL (8-23); Calcium 8.9 mg/dL (8.6-10.4); Carbon Dioxide 24 mmol/L (22-30); Chloride 102 mmol/L (96-108); Globulin 3.1 gm/dL (2.2-3.7); Glomerular Filtration Rate 49; Glucose 52 mg/dL (70-105)
--- NOTE | 2020-11-06 14:06 | Internal Med Progress Note ---
SUBJECTIVE Subjective Patient information: Note initiated : 11/06/20 at 2:01 pm Service Date, if different from initiated Date: [] Patient: Yoni Santiago 75 y/o M admitted on 11/05/20 for Leg Issues. Chief Complaint: [bilateral lower extremities stasis dermatitis vs cellulitis] Interval history: History of present illness: Mr. Santiago is a 75 year old M history of obstructive sleep apnea on CPAP, COPD on home oxygen therapy, type 2 diabetes, essential hypertension, mixed dyslipidemia, hypothyroidism, presenting with 2-week history of gradually onset, gradually worsening bilateral lower extremities edema with associated skin breakdown. He has been seen by Dr. Rea, and Dr. Rea sent him to our ED for further evaluations today after seeing the worsening nature of his skin breakdowns. He is complaining of moderate to severe, burning/sharp, constant pain of bilateral lower legs exacerbated by walking and no alleviating factors. He denies any fever or chills. He is also committing of general body weakness. Is committing of short ness of breath but at baseline. He denies any cough or sputum production or wheezing. No change in appetite. 11/06: Afebrile overnight. Blood culture no growth today. c/o moderate to severe pain bilateral lower legs. Denies any fever or chills or sweating. Denies general body weakness. Denies lethargic or confusion. Denies GI symptoms such as nausea vomiting diarrhea or constipation. Constitutional Vitals: Vital Signs Temp Pulse Resp BP Pulse Ox 36.0 C L 65 14 92/52 90 11/06/20 12:00 11/06/20 12:00 11/06/20 12:00 11/06/20 12:00 11/06/20 13:49 Period Temp Pulse Resp BP Sys/Chaparro Pulse Ox Last 24 Hr 36.0 C-36.5 C 65-102 14-20 92-145/52-73 89-94 Intake and Output 11/06/20 11/06/20 11/06/20 05:59 13:59 21:59 Intake Total 250 500 Output Total 350 Balance -100 500 Intake & Output: Intake & Output 11/06/20 11/06/20 11/06/20 05:59 13:59 21:59 Intake Total 250 500 Output Total 350 Balance -100 500 Intake: IV 50 50 Zosyn 3.375 gm In Dextrose 5% 50 50 in Water 50 ml @ 100 mls/hr IV Q8H [facility] Rx#:[id number] Oral 200 450 Output: Void Amount 350 Other: Meal Breakfast Percent of Meal Consumed 75% Feeding Ability Independent Urine Appearance Clear Urine Color Pale # Voids 1 General appearance: cooperative and no acute distress Head Head exam: Present atraumatic and normocephalic Eye Eye exam: Present EOMI and PERRL ENT ENT exam: Present mucous membranes moist, normal exam and normal external ear exam Neck Neck exam: Present normal inspection; Absent lymphadenopathy, tenderness and thyromegaly Respiratory Respiratory exam: Absent accessory muscle use, respiratory distress and wheezes Cardiovascular Cardiovascular exam: Present normal rate and rhythm; Absent JVD GI/Abdominal GI/Abdominal exam: Present normal bowel sounds and soft; Absent organomegaly and tenderness Rectal Rectal exam: Present deferred Extremities Exam Extremities exam: Present full ROM, normal capillary refill and normal inspection; Absent tenderness Neurological Exam Neurological exam: Present alert, CN II-XII intact and oriented X3; Absent motor sensory deficit Psychiatric Psychiatric exam: Present normal affect and normal mood; Absent anxious and depressed Skin Skin exam: Present erythema, rash and vesicles; Absent dry and intact Additional comments: warmth to touch Tenderness to palpation OBJ DATA Labs CBC & Chem 7: 11/06/20 05:33 11/06/20 05:32 Labs: Abnormal Lab Results 11/06/20 11/06/20 11/05/20 05:33 05:32 14:10 WBC 12.7 H RBC 6.92 H MCV 73.6 L MCH 21.7 L MCHC 29.5 L RDW 24.3 H Plt Count 478 H Neut % (Auto) 85.5 H Lymph % (Auto) 6.5 L Lymph # (Auto) 0.83 L Absolute Neutrophils 10.87 H Carbon Dioxide Creatinine 1.4 H Glucose 52 L Hemoglobin A1c Total Bilirubin Alkaline Phosphatase 162 H C-Reactive Protein NT-Pro-B Natriuret Pep Procalcitonin 0.11 H Urine Glucose (UA) Hyaline Casts Urine Mucus 11/05/20 11/05/20 11/05/20 14:09 10:52 07:45 WBC RBC MCV MCH MCHC RDW Plt Count Neut % (Auto) Lymph % (Auto) Lymph # (Auto) Absolute Neutrophils Carbon Dioxide 19 L Creatinine 1.4 H Glucose 147 H Hemoglobin A1c 6.6 H Total Bilirubin 1.2 H Alkaline Phosphatase 172 H C-Reactive Protein 1.80 H NT-Pro-B Natriuret Pep 5183.0 H Procalcitonin Urine Glucose (UA) >=500 A Hyaline Casts 18 H Urine Mucus Few A 11/05/20 07:45 WBC 16.4 H RBC 6.76 H MCV 73.2 L MCH 21.0 L MCHC 28.7 L RDW 24.6 H Plt Count 504 H Neut % (Auto) 87.7 H Lymph % (Auto) 4.9 L Lymph # (Auto) 0.80 L Absolute Neutrophils 14.40 H Carbon Dioxide Creatinine Glucose Hemoglobin A1c Total Bilirubin Alkaline Phosphatase C-Reactive Protein NT-Pro-B Natriuret Pep Procalcitonin Urine Glucose (UA) Hyaline Casts Urine Mucus Meds: Medications Acetaminophen (Acetaminophen 325 Mg Tablet) 650 mg PO Q6HP PRN; Protocol PRN Reason: Per Pain Protocol/Fever > 101 Last Admin: 11/06/20 08:20 Dose: 650 mg Documented by: Albuterol/Ipratropium (Ipratropium/Albuterol 3 Ml Ampul.Neb) 3 ml NEB Q4HP PRN PRN Reason: Shortness Of Breath Alprazolam (Alprazolam 0.25 Mg Tablet) 0.25 mg PO TID PRN PRN Reason: anxiety Atenolol (Atenolol 50 Mg Tablet) 100 mg PO DAILY [facility] Last Admin: 11/06/20 08:20 Dose: 100 mg Documented by: Atorvastatin Calcium (Atorvastatin 40 Mg Tablet) 40 mg PO HS [facility] Clopidogrel Bisulfate (Clopidogrel 75 Mg Tablet) 75 mg PO DAILY [facility] Dextrose (Dextrose 50% 50 Ml Vial) 0 ml IV UD PRN PRN Reason: Hypoglycemia Diagnostic Test (Pha) (Accu-Chek 1 Each Strip) 1 each FS ACHS [facility] Last Admin: 11/06/20 11:23 Dose: 1 each Documented by: Docusate Sodium (Docusate Sodium 100 Mg Capsule) 100 mg PO BID [facility] Last Admin: 11/06/20 08:20 Dose: 100 mg Documented by: Fexofenadine HCl (Fexofenadine 180 Mg Tablet) 180 mg PO QDAY [facility] Last Admin: 11/06/20 08:20 Dose: 180 mg Documented by: Furosemide (Furosemide 40 Mg/4 Ml Vial) 40 mg IV BIDD [facility] Last Admin: 11/06/20 07:37 Dose: 40 mg Documented by: Glucose (Dextrose 31 Gm Oral.Susp) 15 gm PO PRN PRN PRN Reason: Hypoglycemia Heparin Sodium (Porcine) (Heparin 5,000 Unit/Ml Vial) 5,000 unit SQ Q12 [facility] Last Admin: 11/06/20 08:18 Dose: 5,000 unit Documented by: Piperacillin Sod/Tazobactam (Sod 3.375 gm/ Dextrose) 50 mls @ 100 mls/hr IV Q8H [facility]; Protocol Last Infusion: 11/06/20 06:38 Dose: Infused Documented by: Insulin Glargine (Insulin Glargine, Human 1 Unit/0.01 Ml) 20 unit SQ [facility] Last Admin: 11/05/20 21:00 Dose: 20 units Documented by: Insulin Glargine (Insulin Glargine, Human 1 Unit/0.01 Ml) 15 unit SQ QAM [facility] Last Admin: 11/06/20 08:19 Dose: 15 units Documented by: Insulin Human Lispro (Insulin Lispro 1 Unit/0.01 Ml Unit) 0 unit SQ ACHS [facility]; Protocol Last Admin: 11/06/20 11:23 Dose: Not Given Documented by: Ketorolac Tromethamine (Ketorolac Tromethamine 5 Ml Drops) 1 ml OP TID [facility] Last Admin: 11/06/20 08:22 Dose: Not Given Documented by: Levothyroxine Sodium (Levothyroxine 25 Mcg Tablet) 25 mcg PO QAMAC [facility] Last Admin: 11/06/20 07:37 Dose: 25 mcg Documented by: Morphine Sulfate (Morphine 4 Mg/Ml Vial) 4 mg IV Q4HP PRN; Protocol PRN Reason: Per Pain Protocol Nicotine (Nicotine 21 Mg Patch) 21 mg TOPICAL Q24H [facility] Last Admin: 11/05/20 20:41 Dose: 21 mg Documented by: Nitroglycerin (Nitroglycerin (Pp) 0.4 Mg Tab.Subl (#25)) 0.4 mg SL Q5-15M PRN PRN Reason: Chest Pain Non-Formulary Medication (Aspirin [Adult Low Dose Aspirin]) 81 mg PO [facility] Ondansetron HCl (Ondansetron 4 Mg/2 Ml Vial) 4 mg IV Q6HP PRN PRN Reason: Nausea And Vomiting Oxycodone HCl (Oxycodone Hcl 5 Mg Tablet) 5 mg PO Q4HP PRN; Protocol PRN Reason: Per Pain Protocol Last Admin: 11/05/20 20:40 Dose: 5 mg Documented by: Will Helms] 1 Inh 1 dose INH QDAY [facility] Last Admin: 11/06/20 08:22 Dose: Not Given Documented by: Coenzyme Q10 [Co Q- (10] 100 Mg Capsule) 1 dose PO QDAY [facility] Last Admin: 11/06/20 08:23 Dose: Not Given Documented by: Senna (Sennosides 1 Tablet) 2 tab PO HS [facility] Last Admin: 11/05/20 20:40 Dose: 2 tab Documented by: Sodium Chloride (0.9 % Sodium Chloride 10 Ml Syringe) 10 ml IV Q8 [facility] Last Admin: 11/06/20 06:00 Dose: 10 ml Documented by: Tamsulosin HCl (Tamsulosin 0.4 Mg Capsule) 0.4 mg PO BID [facility] Last Admin: 11/06/20 08:20 Dose: 0.4 mg Documented by: Vitamin D (Vitamin D3 1,000 Unit Tablet) 2,000 unit PO DAILY [facility] Last Admin: 11/06/20 08:20 Dose: 2,000 unit Documented by: Zolpidem Tartrate (Zolpidem 5 Mg Tablet) 5 mg PO HSP PRN PRN Reason: Insomnia A/P Assessment and plan (1) Stage 1 acute kidney injury: Status: Acute (2) COPD (chronic obstructive pulmonary disease): Status: Chronic (3) Essential hypertension: Status: Chronic (4) Obstructive sleep apnea syndrome: Status: Chronic (5) Tobacco dependence syndrome: Status: Chronic (6) Hyperlipidemia: Status: Chronic (7) Type II diabetes mellitus with complication, uncontrolled: Status: Chronic Comment: Peripheral neuropathy and PVD HTN No evidence of Diabetic nephropathy Frequently uncontrolled with blood sugars greater than 400 (8) Hypothyroidism: Status: Acute (9) Congestive heart failure (CHF): Status: Acute Qualifiers: Heart failure chronicity: unspecified Heart failure type: unspecified Qualified Code(s): I50.9 - Heart failure, unspecified (10) Venous stasis dermatitis of both lower extremities: Status: Acute Comment: Yoni is a 75-year-old man with multiple medical problems. He reports lower extremity redness for 2 months bilateral. The appearance is most consistent with stasis dermatitis. However, could consider cellulitis. It would be atypical for cellulitis bilateral with his cool extremities. He has low sed rate, low CRP, and without fever. However, he does have an elevated white blood cell count to 16.4. This is the only finding that is consistent with cellulitis. He has been started on IV Zosyn. No further vancomycin recommended but I would recommend a MRSA screen. Stasis dermatitis can be treated topically with triamcinolone cream. It would be reasonable to continue Zosyn for 48 hours with transition to oral Augmentin for 1 week. Monitor for improving redness but I suspect that the redness represents stasis dermatitis rather than cellulitis. Narrative A/P Narrative: Assessment and Plans: 1. Venous stasis dermatitis bilateral lower extremities: DDx: bilateral lower extremities cellulitis Stays in inpatient med surg Dr. Fuller consulted, recs. appreciated Dr. Rea/Dr. Dow will continue to follow the case---->not surgical candidate Blood culture, no growth to date Lactic acid Procalcitonin MRSA screening d/c Vancomycin Zosyin for 48 hours, then switch to Augmentin for 1 week Triamcinolone topical BID for stasis dermatitis cbc w/ auto diff in the AM to trend WBC Morphine IV PRN severe pain Tylenol PRN fever/mild pain Oxycodone PRN moderate pain Control of leg swelling, see #2 2. CHF: Atenolol Hold Lisinopril in face of DERRELL Lasix 40mg IV BID Intake and output Daily weigh 2L/day fluid restriction 2D echocardiogram, results pending 3. COPD: Continue bronchodilators Supplemental oxygen therapy titrate to achieve spo2>=88% (COPD-er) 4. EDI: Continue CPAP at night while sleeping 5. T2DM: HgA1c Hold any oral hypoglycemics Lantus AM and HS SSI AC HS Accu Chek AC HS Hypoglycemia protocol Diabetic diet 6. Essential HTN: Atenolol Hold Lisinopril in face of DERRELL Lasix 40mg IV BID 7. Mixed dyslipidemia: Continue statin therapy 8. Hypothyroidism: Continue thyroid replacement therapy 9. Stage 1 acute kidney injury: Avoid nephrotoxic agents; hold Lisinopril Saline lock Repeat CMP in the morning to trend kidney functions GI ppx: continue oral PPI from home regimen DVT ppx: Heparin Code status: Full Prognosis: stable Disposition: inpatient med surg; PT OT Time Spent With Patient Time: Total time spent is greater than 50% in coordination of care (as documented) at patient's floor/unit and/or counseling patient: QUALITY VTE Deep Vein Thrombosis/Pulmonary Embolism Present on Admission: No
[2020-11-06] MEDS ORDERED: NITROGLYCERIN 0.4 MG TAB.SUBL SL PRN (14:07)
[2020-11-06] MEDS: NICOTINE 21 MG PATCH TOPICAL SCH (16:39)
[2020-11-06] MEDS: SENNOSIDES 1 TABLET PO SCH (20:20)
[2020-11-06] MEDS: oxyCODONE HCL 5 MG TABLET PO PRN (20:20)
[2020-11-06] MEDS: TRIAMCINOLONE CREAM 0.1% 15G 1 DOSE TUBE TOPICAL SCH (20:21)
[2020-11-06] MEDS ORDERED: ASPIRIN 81 MG TAB.CHEW PO SCH (21:00)
[2020-11-06] MEDS ORDERED: ATORVASTATIN 40 MG TABLET PO SCH (21:00)
[2020-11-07] MEDS: ACETAMINOPHEN 325 MG TABLET PO PRN (01:34)
[2020-11-07] MEDS: oxyCODONE HCL 5 MG TABLET PO PRN (01:34)
[2020-11-07] MEDS: PIPERACILLIN SODIUM/TAZOBACTAM 3.375 GM in DEXTROSE 5% IN WATER 50 ML IV SCH (06:03)
[2020-11-07] MEDS: 0.9 % SODIUM CHLORIDE 10 ML SYRINGE IV SCH (06:05)
[2020-11-07] MEDS: FUROSEMIDE 40 MG/4 ML VIAL IV SCH (07:19)
[2020-11-07] MEDS: LEVOTHYROXINE 25 MCG TABLET PO SCH (07:19)
[2020-11-07] MEDS: INSULIN LISPRO 1 UNIT/0.01 ML UNIT SQ SCH (07:21)
[2020-11-07 07:22] LABS: ALT/SGPT 18 U/L (<40); AST/SGOT 18 U/L (<40); Albumin 3.7 gm/dL (3.2-5.2); Albumin/Globulin Ratio 1.2 (1.0-2.3); Alkaline Phosphatase 148 U/L (39-117); Bilirubin,Total 0.7 mg/dL (0.1-1.0); Blood Urea Nitrogen 26 mg/dL (8-23); Carbon Dioxide 26 mmol/L (22-30); Chloride 102 mmol/L (96-108); Glomerular Filtration Rate 36; Glucose 103 mg/dL (70-105)
[2020-11-07 07:37] LABS: Basophils # (Auto) 0.11 K/mcL (0.00-0.30); Basophils % (Auto) 0.8 % (0.0-2.0); Eosinophils # (Auto) 0.29 K/mcL (0.00-0.70); Eosinophils % (Auto) 2.2 % (0.0-7.0); Hemoglobin 14.3 g/dL (13.7-17.5); Lymphocytes # (Auto) 1.08 K/mcL (1.50-4.80); Mean Cell Volume 73.7 fL (80.0-100.0); Mean Corpuscular HGB Conc 28.6 g/dL (31.0-36.0); Monocytes # (Auto) 0.57 K/mcL (0.10-0.90); Monocytes % (Auto) 4.2 % (1.0-12.0); Neutrophils % (Auto) 84.8 % (38.0-78.0); Platelet Count 500 K/mcL (140-440); RBC 6.78 M/mcL (4.63-6.08); Red Cell Distribution Width 23.8 % (11.5-14.5); WBC 13.5 K/mcL (4.5-11.0)
[2020-11-07] MEDS: FEXOFENADINE 180 MG TABLET PO SCH (08:16)
[2020-11-07] MEDS: ATENOLOL 50 MG TABLET PO SCH (08:16)
[2020-11-07] MEDS: DOCUSATE SODIUM 100 MG CAPSULE PO SCH (08:16)
[2020-11-07] MEDS: VITAMIN D3 1,000 UNIT TABLET PO SCH (08:16)
[2020-11-07] MEDS: TAMSULOSIN 0.4 MG CAPSULE PO SCH (08:16)
[2020-11-07] MEDS: HEPARIN 5,000 UNIT/ML VIAL SQ SCH (08:16)
[2020-11-07] MEDS: TRIAMCINOLONE CREAM 0.1% 15G 1 DOSE TUBE TOPICAL SCH (08:20)
[2020-11-07] MEDS: INSULIN GLARGINE, HUMAN 1 UNIT/0.01 ML SQ SCH (08:20)
[2020-11-07] MEDS: KETOROLAC TROMETHAMINE 5 ML DROPS OP SCH (08:24)
[2020-11-07] MEDS: ANORO ELLIPTA INH SCH (08:24)
[2020-11-07] MEDS: COENZYME Q10 100 MG PO SCH (08:24)
[2020-11-07] MEDS ORDERED: CLOPIDOGREL 75 MG TABLET PO SCH (09:00)
--- NOTE | 2020-11-07 09:18 | Discharge Summary ---
Discharge Provider Provider Patient information: Note initiated : 11/07/20 at 9:15 am Service Date, if different from initiated Date: [] Patient: Yoni Santiago 75 y/o M admitted on 11/05/20 for Leg Issues. Chief Complaint: [venous stasis dermatitis vs cellulitis of bilateral lower extremities] Date of admission: 11/05/20 12:43 Discharge date: 11/07/20 Primary care physician: Shawnee Palma PA-C Consults: 11/05/20 Consult to Physician [CONS] Stat Comment: Consulting Provider: Eliel Rea Reason For Exam: Physician to Consult Consult to Physician [CONS] Stat Comment: Consulting Provider: Ace Dow Reason For Exam: Physician to Consult Consult to Physician [CONS] Stat Comment: Consulting Provider: Richard Deluca Reason For Exam: Physician to Consult 11/05/20 13:49 Consult to Physician [CONS] Stat Comment: Consulting Provider: Mando Fuller Reason For Exam: Physician to Consult Discharge Meds Discharge Medications Home Medications atorvastatin 40 mg PO HS 12/16/16 [History Confirmed 11/05/20 Last Taken Unknown] clopidogrel 75 mg PO DAILY 12/16/16 [History Confirmed 11/05/20 Last Taken Unknown] coenzyme Q10 100 mg capsule 100 mg PO QDAY 11/05/18 [History Confirmed 11/05/20 Last Taken Unknown] metformin 500 mg tablet 1,000 mg PO BID 11/05/18 [History Confirmed 11/05/20 Last Taken Unknown] nitroglycerin 0.4 mg sublingual tablet 0.4 mg SUBLINGUAL Q5-15M PRN 11/05/18 [History Confirmed 11/05/20 Last Taken Unknown] aspirin 81 mg tablet,delayed release 81 mg PO HS tab 11/25/18 [History Confirmed 11/05/20 Last Taken Unknown] Vitamin D3 2,000 units PO DAILY 02/13/20 [History Confirmed 11/05/20 Last Taken Unknown] ketorolac [Acular] 1 drp OPHTHALMIC (EYE) TID 02/13/20 [History Confirmed 11/05/20 Last Taken Unknown] levothyroxine 25 mcg PO QDAY 02/13/20 [History Confirmed 11/05/20 Last Taken Unknown] pen needle, diabetic [TechLITE Pen Needle] 02/13/20 [History Confirmed 11/05/20 Last Taken Unknown] Levemir FlexTouch U-100 Insuln 15 unit SUB-Q QAM #3 ml 02/15/20 [Rx Confirmed 11/05/20 Last Taken Unknown] Levemir FlexTouch U-100 Insuln 20 unit SUB-Q QHS #3 ml 02/15/20 [Rx Confirmed 11/05/20 Last Taken Unknown] atenolol 100 mg PO DAILY 02/15/20 [History Confirmed 11/05/20 Last Taken Unknown] nicotine 1 patch TRANSDERMA Q24H #7 each 02/16/20 [Rx Confirmed 11/05/20 Last Taken Unknown] alprazolam [Xanax] 0.25 mg PO TID PRN #9 tab 05/28/20 [Rx Confirmed 11/05/20 Las t Taken Unknown] Anoro Ellipta 1 inh INHALATION QDAY 11/05/20 [History Confirmed 11/05/20 Last Taken Unknown] fexofenadine 180 mg PO QDAY 11/05/20 [History Confirmed 11/05/20 Last Taken Unknown] tamsulosin 0.4 mg PO BID 11/05/20 [History Confirmed 11/05/20 Last Taken Unknown] amoxicillin-pot clavulanate [Augmentin] 1 tab PO BID #14 tab 11/07/20 [Rx Last Taken Unknown] furosemide [Lasix] 20 mg PO BID #14 tab 11/07/20 [Rx Last Taken Unknown] oxycodone 5 mg PO Q4HP PRN 10 Days tab 11/07/20 [Rx Last Taken Unknown] triamcinolone acetonide 1 dose TOPICAL BID 10 Days g 11/07/20 [Rx Last Taken Unknown] COURSE Hospital Course Hospital course: Patient was admitted on November 05, 2020 for bilateral lower extremities venous stasis dermatitis versus cellulitis. IV diuretics in terms of IV Lasix were given for venous stasis dermatitis together with triamcinolone. So sent will also given asked antibiotics coverage for the possibility of cellulitis. Blood culture were collected and no growth to date. By day 3 hospitalizations, patient like erythema and swelling has much improved and patient has reached clinical stability. As such, the decision was made to discharge patient home with prescriptions of 1 week of Augmentin and instruction to follow-up with PCP in 1 weeks. All questions were answered prior to patient being physically discharged. Discharge diagnosis: bilateral lower extremities venous stasis dermatitis versus cellulitis Time Spent with Patient Time attestation: Total time spent providing and/or coordinating discharge services: Patient was admitted on November 05, 2020 for bilateral lower extremities venous stasis dermatitis versus cellulitis. IV diuretics in terms of IV Lasix were given for venous stasis dermatitis together with triamcinolone. So sent will also given asked antibiotics coverage for the possibility of cellulitis. Blood culture were collected and no growth to date. By day 3 hospitalizations, patient like erythema and swelling has much improved and patient has reached clinical stability. As such, the decision was made to discharge patient home with prescriptions of 1 week of Augmentin and instruction to follow-up with PCP in 1 weeks. All questions were answered prior to patient being physically discharged. EXAM Constitutional Vitals: Temp Pulse Resp BP Pulse Ox 36.0 C L 56 L 20 107/61 97 11/07/20 07:16 11/07/20 07:16 11/07/20 07:16 11/07/20 07:16 11/07/20 07:16 General appearance: cooperative and no acute distress Head Head exam: Present atraumatic and normocephalic Eye Eye exam: Present EOMI and PERRL ENT ENT exam: Present mucous membranes moist, normal exam and normal external ear exam Neck Neck exam: Present normal inspection; Absent lymphadenopathy, tenderness and thyromegaly Respiratory Respiratory exam: Absent accessory muscle use, respiratory distress and wheezes Cardiovascular Cardiovascular exam: Present normal rate and rhythm; Absent JVD GI/Abdominal GI/Abdominal exam: Present normal bowel sounds and soft; Absent organomegaly and tenderness Rectal Rectal exam: Present deferred Extremities Exam Extremities exam: Present full ROM, normal capillary refill, normal inspection and pedal edema; Absent tenderness Neurological Exam Neurological exam: Present alert, CN II-XII intact and oriented X3; Absent motor sensory deficit Psychiatric Psychiatric exam: Present normal affect and normal mood; Absent anxious and depressed Skin Skin exam: Present abrasion, dry, erythema, rash and vesicles; Absent intact Discharge Data Data Completed and Pending Labs on day of discharge: Labs from last 24 hours 11/07/20 11/07/20 11/06/20 05:39 05:39 05:32 WBC 13.5 H RBC 6.78 H Hgb 14.3 Hct 50.0 MCV 73.7 L MCH 21.1 L MCHC 28.6 L RDW 23.8 H Plt Count 500 H MPV Neut % (Auto) 84.8 H Lymph % (Auto) 8.0 L [place] % (Auto) 4.2 Eos % (Auto) 2.2 Baso % (Auto) 0.8 Lymph # (Auto) 1.08 L [place] # (Auto) 0.57 Eos # (Auto) 0.29 Baso # (Auto) 0.11 Absolute Neutrophils 11.43 H Sodium 141 140 Potassium 4.2 4.0 Chloride 102 102 Carbon Dioxide 26 24 Anion Gap 13.0 14.0 BUN 26 H 14 Creatinine 1.8 H 1.4 H GFR Calculation 36 49 Glucose 103 52 L Calcium 9.0 8.9 Total Bilirubin 0.7 0.9 AST 18 17 ALT 18 19 Alkaline Phosphatase 148 H 162 H Total Protein 6.7 6.7 Albumin 3.7 3.6 Globulin 3.0 3.1 Albumin/Globulin Ratio 1.2 1.2 Preliminary micro results at discharge 11/05/20 08:18 Blood Culture - Preliminary Blood 11/05/20 08:10 Blood Culture - Preliminary Blood Discharge Plan Patient/Caregiver Discharge Instructions Activity: increase activity as tolerated Diet: Consistent Carbohydrate Prescriptions: New triamcinolone acetonide 0.1 % Cream 1 dose topical BID 10 Days RF: 0 oxycodone 5 mg Tablet 5 mg PO Q4HP PRN (Reason: Per Pain Protocol) 10 Days RF: 0 furosemide [Lasix] 20 mg tablet 20 mg PO BID Qty: 14 RF: 0 amoxicillin-pot clavulanate [Augmentin] 875-125 mg tablet 1 tab PO BID Qty: 14 RF: 0 Continued coenzyme Q10 [Co Q-10] 100 mg capsule 100 mg PO QDAY RF: 0 metformin 500 mg tablet 1,000 mg PO BID RF: 0 nitroglycerin 0.4 mg tablet, sublingual 0.4 mg SUBLINGUAL Q5-15M PRN (Reason: Chest Pain) RF: 0 aspirin [Adult Low Dose Aspirin] 81 mg tablet,delayed release (DR/EC) 81 mg PO HS RF: 0 atorvastatin 40 MG tablet 40 mg PO HS RF: 0 clopidogrel 75 MG tablet 75 mg PO DAILY RF: 0 levothyroxine 25 mcg Tablet 25 mcg PO QDAY RF: 0 ketorolac [Acular] 0.5 % Drops 1 drp OPHTHALMIC (EYE) TID RF: 0 Vitamin D3 2,000 unit capsule 2,000 units PO DAILY RF: 0 Levemir FlexTouch U-100 Insuln 100 unit/mL (3 mL) insulin pen 20 unit SUB-Q QHS Qty: 3 RF: 0 Levemir FlexTouch U-100 Insuln 100 unit/mL (3 mL) insulin pen 15 unit SUB-Q QAM Qty: 3 RF: 0 atenolol 100 mg tablet 100 mg PO DAILY RF: 0 nicotine 21 mg/24 hr patch 24 hour 1 patch TRANSDERMA Q24H Qty: 7 RF: 0 alprazolam [Xanax] 0.25 mg tablet 0.25 mg PO TID PRN (Reason: anxiety) Qty: 9 RF: 0 Anoro Ellipta 62.5-25 mcg/actuation Blister With Device 1 inh INHALATION QDAY RF: 0 fexofenadine 180 mg Tablet 180 mg PO QDAY RF: 0 tamsulosin 0.4 MG capsule 0.4 mg PO BID RF: 0 Discontinued lisinopril 10 mg Tablet 10 mg PO QDAY RF: 0 No Action (DME) pen needle, diabetic [TechLITE Pen Needle] 32 gauge x 5/32" Needle MISCELLANEOUS RF: 0 Follow Up Plan Follow up with: Shawnee Palma PA-C [Primary Care Provider] - Patient Disposition: Home, Self-Care Rehab Potential: Good I certify that the patient requires SNF services: No Overall status at discharge: patient is progressing back to baseline Discharge Orders: Discharge Order (Routine); Ordered 11/07/20 Ordered By: Richard JIMENEZ VTE Deep Vein Thrombosis/Pulmonary Embolism Present on Admission: No
== END 2020-11-07 10:42 | disposition home or self-care (01) | DRG 300 ==
LOC: ED 07:25 → MEDSUR 12:43
PROVIDERS: ADMIT Internal Medicine; ATTEND Internal Medicine

== ENCOUNTER 2020-11-28 08:40 | Inpatient (IN) ==
[2020-11-28] MEDS ORDERED: IPRATROPIUM/ALBUTEROL 3 ML AMPUL.NEB NEB ONE (08:54)
--- NOTE | 2020-11-28 08:56 | Emergency Department Note ---
HPI General Chief complaint: Shortness of Breath/Dyspnea Stated complaint: shortness of breath, lower leg swelling Time Seen by Provider: 11/28/20 09:10 Source: patient Mode of arrival: wheelchair Limitations: no limitations History of Present Illness HPI Narrative: Narrative: Patient presents emergency department for 2-month history of increased lower extremity swelling and shortness of breath. He uses CPAP at night. He is able to lie flat. He denies prior history of CHF but does state that he has been prescribed a water pill. Is not certain what the medication is. Denies history of COPD or asthma states he does not use any inhalers. Has a prior history of smoking 5 packs a day has cut back to less than 1 pack a day currently. No fever. No chest pain. No other complaints. Patient states he supposed be on oxygen all the time at home but has not been using it because he does not like to wear it. Related Data Home Medications Medication Instructions Recorded Confirmed atorvastatin 40 mg PO HS 12/16/16 11/05/20 clopidogrel 75 mg PO DAILY 12/16/16 11/05/20 coenzyme Q10 100 mg capsule 100 mg PO QDAY 11/05/18 11/05/20 metformin 500 mg tablet 1,000 mg PO BID 11/05/18 11/05/20 nitroglycerin 0.4 mg sublingual 0.4 mg SUBLINGUAL Q5-15M PRN 11/05/18 11/05/20 tablet aspirin 81 mg tablet,delayed 81 mg PO HS tab 11/25/18 11/05/20 release Vitamin D3 2,000 units PO DAILY 02/13/20 11/05/20 ketorolac [Acular] 1 drp OPHTHALMIC (EYE) TID 02/13/20 11/05/20 levothyroxine 25 mcg PO QDAY 02/13/20 11/05/20 pen needle, diabetic [TechLITE Pen 02/13/20 11/05/20 Needle] atenolol 100 mg PO DAILY 02/15/20 11/05/20 Anoro Ellipta 1 inh INHALATION QDAY 11/05/20 11/05/20 fexofenadine 180 mg PO QDAY 11/05/20 11/05/20 tamsulosin 0.4 mg PO BID 11/05/20 11/05/20 Previous Rx's Medication Instructions Recorded Levemir FlexTouch U-100 Insuln 15 unit SUB-Q QAM #3 ml 02/15/20 Levemir FlexTouch U-100 Insuln 20 unit SUB-Q QHS #3 ml 02/15/20 nicotine 1 patch TRANSDERMA Q24H #7 each 02/16/20 alprazolam [Xanax] 0.25 mg PO TID PRN #9 tab 05/28/20 amoxicillin-pot clavulanate 1 tab PO BID #14 tab 11/07/20 [Augmentin] furosemide [Lasix] 20 mg PO BID #14 tab 11/07/20 Allergies Allergy/AdvReac Type Severity Reaction Status Date / Time lovastatin Allergy Unknown Unknown Verified 11/28/20 08:46 niacin Allergy Unknown Unknown Verified 11/28/20 08:46 morphine [MORPHINE] AdvReac Mild Nausea/Vomi Verified 11/28/20 08:46 ting Review of Systems ROS ROS Narrative: Narrative: As above, all other system reviewed and negative PFSH Narrative Patient History Narrative: Narrative: Reviewed Medical/Surgical/Family History All Active Problems (Updated 11/28/20 @ 13:02 by Jacob Garcia MD) CHF (congestive heart failure) (Acute) Edema (Acute) Venous stasis dermatitis of both lower extremities (Acute) Stage 1 acute kidney injury (Acute) Abdominal pain (Chronic) Dehydration (Chronic) Renal failure (ARF), acute on chronic (Chronic) Ileus, postoperative (Chronic) Urinary retention (Chronic) Chronic kidney disease, stage 3 (moderate) (Chronic) Diabetes mellitus (Chronic) Hyperlipidemia (Chronic) Obesity (Chronic) Body mass index exceeds 30 (Chronic) Tobacco dependence syndrome (Chronic) Obstructive sleep apnea syndrome (Chronic) Essential hypertension (Chronic) Arteriosclerotic vascular disease (Chronic) Peripheral vascular disease (Chronic) COPD (chronic obstructive pulmonary disease) (Chronic) GERD (gastroesophageal reflux disease) (Chronic) Chronic low back pain (Chronic) Chronic abdominal pain (Chronic) Epigastric pain (Chronic) Intention tremor (Chronic) Skin lesion (Chronic) Memory impairment (Chronic) Diabetic foot ulcer (Chronic) Type II diabetes mellitus with complication, uncontrolled (Chronic) Peripheral vascular disease with claudication (Chronic) Gastroenteritis and colitis, viral (Acute) Hypothyroidism (Acute) Frequent falls (Acute) Dehydration determined by examination (Acute) Hypotension (Acute) Polypharmacy (Acute) Hyperosmolar non-ketotic state due to type 2 diabetes mellitus (Acute) Acute kidney injury (Acute) Fall (Acute) Cellulitis of right elbow (Acute) Chronic hip pain (Acute) Degenerative joint disease of left hip (Acute) No-show for appointment (Acute) Acute anxiety (Acute) Gastritis (Acute) Congestive heart failure (CHF) (Acute) Cellulitis (Acute) Pneumonia (Acute) Medical History (Updated 11/28/20 @ 13:02 by Jaocb Garcia MD) Abdominal pain Arteriosclerotic vascular disease 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 Both are slightly above the upper limit of normal As he frequently shows up dehydrated from hypoglycemia this is the reason his KATHIE inhibitor was stopped to prevent acute renal failure under the situations Chronic low back pain COPD (chronic obstructive pulmonary disease) Dehydration Diabetes mellitus Patient reports diabetes duration of 2 years. Diabetic foot ulcer Epigastric pain Essential hypertension GERD (gastroesophageal reflux disease) Hyperlipidemia Intention tremor Bilateral Hands Memory impairment Obesity Obstructive sleep apnea syndrome Peripheral vascular disease Peripheral vascular disease with claudication Patient has had previous lower extremity stenting. I would recommend repeat vascular evaluation. Renal failure (ARF), acute on chronic Skin lesion Tobacco dependence syndrome Type II diabetes mellitus with complication, uncontrolled Peripheral neuropathy and PVD HTN No evidence of Diabetic nephropathy Frequently uncontrolled with blood sugars greater than 400 Surgical History History of cardiac catheterization (~10/16/18) S/P arterial stent Femoral Family History Brother Malignant tumor of pancreas Father Pulmonary emphysema CA (myocardial infarction) Mother FHx: cholecystectomy Hx of appendectomy H/O knee surgery Social History Smoking Status: Current every day smoker Alcohol Intake Frequency: does not drink Substance Use: does not use Exam Narrative Narrative: Narrative: Blood pressure 98/70 pulse 68 respirations 24 satting 92% on room air. General Limitations: no limitations Head Head: Present atraumatic and normocephalic Eye Eye: Present normal appearance, PERRL and EOMI ENT ENT: Present normal exam and normal oropharynx Neck Neck: Present normal inspection and full ROM Respiratory Respiratory: Absent respiratory distress Extremities Extremities: Present normal inspection and full ROM Neurological Neurological: Present alert, oriented X3 and CN II-XII intact; Absent motor sensory deficit Psychiatric Psychiatric: Present normal affect and normal mood Skin Skin: Present warm (WNL) and dry Course Vital Signs Vital signs: Vital Signs Pulse Rate 68 11/28/20 08:40 Respiratory Rate 24 H 11/28/20 08:40 Blood Pressure 98/70 11/28/20 08:40 Pulse Oximetry (%) 92 11/28/20 08:40 Pulse Rate 64 11/28/20 12:01 Respiratory Rate 24 H 11/28/20 11:31 Blood Pressure 98/54 11/28/20 12:46 Pulse Oximetry (%) 91 11/28/20 12:01 [facility] MDM Narrative Medical decision making narrative: Narrative: EKG shows sinus rhythm, no acute ischemic changes, no significant change when compared to prior EKG. chest x-ray is consistent with CHF. Patient is given Lasix. Had about a liter of urine output with this. I spoke with on-call spitalist. Case reviewed in detail phone. Hospitalist evaluate the patient in the emergency department admit the patient to hospital. Discussed findings with the patient. His questions were answered. He is agreeable to plan. Lab Data Result diagrams: 11/28/20 09:00 11/28/20 09:00 Labs: Lab Results 11/28/20 11/28/20 11/28/20 Range/Units 08:47 09:00 09:00 WBC 18.8 H (4.5-11.0) K/mcL RBC 7.29 H (4.63-6.08) M/mcL Hgb 15.5 (13.7-17.5) g/dL Hct 52.8 H (40.1-51.0) % MCV 72.4 L (80.0-100.0) fL MCH 21.3 L (26.0-34.0) pg MCHC 29.4 L (31.0-36.0) g/dL RDW 24.1 H (11.5-14.5) % Plt Count 566 H (140-440) K/mcL MPV (7.4-10.4) fL Neut % (Auto) 86.9 H (38.0-78.0) % Lymph % (Auto) 5.0 L (15.5-49.0) % [place] % (Auto) 5.0 (1.0-12.0) % Eos % (Auto) 2.0 (0.0-7.0) % Baso % (Auto) 1.1 (0.0-2.0) % Lymph # (Auto) 0.93 L (1.50-4.80) K/mcL [place] # (Auto) 0.94 H (0.10-0.90) K/mcL Eos # (Auto) 0.37 (0.00-0.70) K/mcL Baso # (Auto) 0.21 (0.00-0.30) K/mcL Absolute Neutrophils 16.32 H (1.80-8.00) K/mcL Sodium 139 (133-145) mmol/L Potassium 4.6 (3.3-5.1) mmol/L Chloride 105 (96-108) mmol/L Carbon Dioxide 21 L (22-30) mmol/L Anion Gap 13.0 (8.0-16.0) BUN 22 (8-23) mg/dL Creatinine 1.7 H (0.7-1.2) mg/dL GFR Calculation 39 Glucose 97 (70-105) mg/dL Calcium 9.2 (8.6-10.4) mg/dL NT-Pro-B Natriuret Pep 6599.0 H (<125.0) pg/mL Procalcitonin 0.11 H (<0.10) ng/mL ED POC Tests ED POC Tests: ADI - SARS Antigen Negative Discharge Plan Patient/Caregiver Discharge Instructions Pt seen by C ARCHITECT/PA only: No Clinical Impression: CHF (congestive heart failure) Patient Disposition: Xfer As Inpt ([facility]) Condition: Fair Follow up with: Shawnee Palma PA-C [Primary Care Provider] - Prescriptions: No Action coenzyme Q10 [Co Q-10] 100 mg capsule 100 mg PO QDAY RF: 0 metformin 500 mg tablet 1,000 mg PO BID RF: 0 nitroglycerin 0.4 mg tablet, sublingual 0.4 mg SUBLINGUAL Q5-15M PRN (Reason: Chest Pain) RF: 0 aspirin [Adult Low Dose Aspirin] 81 mg tablet,delayed release (DR/EC) 81 mg PO HS RF: 0 atorvastatin 40 MG tablet 40 mg PO HS RF: 0 clopidogrel 75 MG tablet 75 mg PO DAILY RF: 0 levothyroxine 25 mcg Tablet 25 mcg PO QDAY RF: 0 ketorolac [Acular] 0.5 % Drops 1 drp OPHTHALMIC (EYE) TID RF: 0 (DME) pen needle, diabetic [TechLITE Pen Needle] 32 gauge x 5/32" Needle MISCELLANEOUS RF: 0 Vitamin D3 2,000 unit capsule 2,000 units PO DAILY RF: 0 Levemir FlexTouch U-100 Insuln 100 unit/mL (3 mL) insulin pen 20 unit SUB-Q QHS Qty: 3 RF: 0 Levemir FlexTouch U-100 Insuln 100 unit/mL (3 mL) insulin pen 15 unit SUB-Q QAM Qty: 3 RF: 0 atenolol 100 mg tablet 100 mg PO DAILY RF: 0 nicotine 21 mg/24 hr patch 24 hour 1 patch TRANSDERMA Q24H Qty: 7 RF: 0 alprazolam [Xanax] 0.25 mg tablet 0.25 mg PO TID PRN (Reason: anxiety) Qty: 9 RF: 0 Anoro Ellipta 62.5-25 mcg/actuation Blister With Device 1 inh INHALATION QDAY RF: 0 fexofenadine 180 mg Tablet 180 mg PO QDAY RF: 0 tamsulosin 0.4 MG capsule 0.4 mg PO BID RF: 0 furosemide [Lasix] 20 mg tablet 20 mg PO BID Qty: 14 RF: 0 amoxicillin-pot clavulanate [Augmentin] 875-125 mg tablet 1 tab PO BID Qty: 14 RF: 0
[2020-11-28] MEDS ORDERED: FUROSEMIDE 20 MG/2 ML VIAL IV ONE ×2 (09:10→10:07)
--- NOTE | 2020-11-28 09:14 | XRay Report ---
INDICATION: sob TECHNIQUE: AP portable upright chest x-ray COMPARISON: None FINDINGS:Right-sided transvenous cardiac pacemaker. Leads are in appropriate positions for right atrium and right ventricle. There is cardiomegaly. Pulmonary vascularity is prominent. There is peribronchial thickening and findings are consistent with interstitial edema. There is bibasilar infiltrate, right worse than left. Findings are most consistent with congestive heart failure. Clinical correlation and follow-up radiographs recommended. There is right pleural effusion. Radiographic appearance is slightly worse than on 11/05/2020 IMPRESSION: 1. Findings consistent with congestive heart failure 2. Interval worsening since 11/05/2020 Interpreted and Authenticated by: Mack Phillip 11/28/20
[2020-11-28 09:40] LABS: Basophils # (Auto) 0.21 K/mcL (0.00-0.30); Basophils % (Auto) 1.1 % (0.0-2.0); Eosinophils # (Auto) 0.37 K/mcL (0.00-0.70); Hematocrit 52.8 % (40.1-51.0); Hemoglobin 15.5 g/dL (13.7-17.5); Lymphocytes # (Auto) 0.93 K/mcL (1.50-4.80); Mean Cell Volume 72.4 fL (80.0-100.0); Mean Corpuscular HGB Conc 29.4 g/dL (31.0-36.0); Monocytes # (Auto) 0.94 K/mcL (0.10-0.90); Neutrophils % (Auto) 86.9 % (38.0-78.0); Platelet Count 566 K/mcL (140-440); RBC 7.29 M/mcL (4.63-6.08); Red Cell Distribution Width 24.1 % (11.5-14.5); WBC 18.8 K/mcL (4.5-11.0)
[2020-11-28 09:57] LABS: Blood Urea Nitrogen 22 mg/dL (8-23); Calcium 9.2 mg/dL (8.6-10.4); Carbon Dioxide 21 mmol/L (22-30); Chloride 105 mmol/L (96-108); Glomerular Filtration Rate 39; Glucose 97 mg/dL (70-105)
--- NOTE | 2020-11-28 12:18 | Internal Med History&Physical ---
HPI History of Present Illness Patient information: Note initiated : 11/28/20 at 12:12 pm Service Date, if different from initiated Date: [] Patient: Yoni Santiago 75 y/o M admitted on for shortness of breath, lower leg swelling. Chief Complaint: [] History of present illness: Mr. Santiago is a 75 year old M Presents to ED with increased leg swelling. Has chronic shortness of breath but feels like it is worse the past few days. He denies cough. Patient states nothing that brought him in today was increased redness swelling and pain of his legs. He has a history of obstructive sleep apnea uses CPAP machine and history of COPD and is on oxygen 3-4L but does not wear it all the time who does not like it. Still smoking but has cut back to <1 pack a day. He was recently admitted for venous stasis dermatitis with cellulitis as well as CHF and discharged on the with 1 week of Augmentin. Denies fever chills. Denies any coughing with food or drink. Review of Systems: Pertinent positives as above. Denies headache/fever/chills/nausea/vom iting/chest or abdominal pain/diarrhea. Remaining 10 point review of system reviewed negative. PFSH PFSH All Active Problems Edema (Acute) Venous stasis dermatitis of both lower extremities (Acute) Stage 1 acute kidney injury (Acute) Abdominal pain (Chronic) Dehydration (Chronic) Renal failure (ARF), acute on chronic (Chronic) Ileus, postoperative (Chronic) Urinary retention (Chronic) Chronic kidney disease, stage 3 (moderate) (Chronic) Diabetes mellitus (Chronic) Hyperlipidemia (Chronic) Obesity (Chronic) Body mass index exceeds 30 (Chronic) Tobacco dependence syndrome (Chronic) Obstructive sleep apnea syndrome (Chronic) Essential hypertension (Chronic) Arteriosclerotic vascular disease (Chronic) Peripheral vascular disease (Chronic) COPD (chronic obstructive pulmonary disease) (Chronic) GERD (gastroesophageal reflux disease) (Chronic) Chronic low back pain (Chronic) Chronic abdominal pain (Chronic) Epigastric pain (Chronic) Intention tremor (Chronic) Skin lesion (Chronic) Memory impairment (Chronic) Diabetic foot ulcer (Chronic) Type II diabetes mellitus with complication, uncontrolled (Chronic) Peripheral vascular disease with claudication (Chronic) Gastroenteritis and colitis, viral (Acute) Hypothyroidism (Acute) Frequent falls (Acute) Dehydration determined by examination (Acute) Hypotension (Acute) Polypharmacy (Acute) Hyperosmolar non-ketotic state due to type 2 diabetes mellitus (Acute) Acute kidney injury (Acute) Fall (Acute) Cellulitis of right elbow (Acute) Chronic hip pain (Acute) Degenerative joint disease of left hip (Acute) No-show for appointment (Acute) Acute anxiety (Acute) Gastritis (Acute) Congestive heart failure (CHF) (Acute) Cellulitis (Acute) Pneumonia (Acute) Medical History Abdominal pain Arteriosclerotic vascular disease 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 Both are slightly above the upper limit of normal As he frequently shows up dehydrated from hypoglycemia this is the reason his KATHIE inhibitor was stopped to prevent acute renal failure under the situations Chronic low back pain COPD (chronic obstructive pulmonary disease) Dehydration Diabetes mellitus Patient reports diabetes duration of 2 years. Diabetic foot ulcer Epigastric pain Essential hypertension GERD (gastroesophageal reflux disease) Hyperlipidemia Intention tremor Bilateral Hands Memory impairment Obesity Obstructive sleep apnea syndrome Peripheral vascular disease Peripheral vascular disease with claudication Patient has had previous lower extremity stenting. I would recommend repeat vascular evaluation. Renal failure (ARF), acute on chronic Skin lesion Tobacco dependence syndrome Type II diabetes mellitus with complication, uncontrolled Peripheral neuropathy and PVD HTN No evidence of Diabetic nephropathy Frequently uncontrolled with blood sugars greater than 400 Surgical History History of cardiac catheterization (~10/16/18) S/P arterial stent Femoral Family History Brother Malignant tumor of pancreas Father Pulmonary emphysema [place] (myocardial infarction) Mother FHx: cholecystectomy Hx of appendectomy H/O knee surgery Social History occupational status: disabled sexually active: No physical activity: none alcohol intake frequency: does not drink substance use type: does not use seatbelt use: always working smoke detector in home: Yes firearms in home: No MEDS/ALLERGIES Home Medications and Allergies Home Medications Medication Instructions Recorded Confirmed Type atorvastatin 40 mg PO HS 12/16/16 11/05/20 History clopidogrel 75 mg PO DAILY 12/16/16 11/05/20 History coenzyme Q10 100 mg capsule 100 mg PO QDAY 11/05/18 11/05/20 History metformin 500 mg tablet 1,000 mg PO BID 11/05/18 11/05/20 History nitroglycerin 0.4 mg sublingual 0.4 mg SUBLINGUAL Q5-15M PRN 11/05/18 11/05/20 History tablet aspirin 81 mg tablet,delayed 81 mg PO HS tab 11/25/18 11/05/20 History release Vitamin D3 2,000 units PO DAILY 02/13/20 11/05/20 History ketorolac [Acular] 1 drp OPHTHALMIC (EYE) TID 02/13/20 11/05/20 History levothyroxine 25 mcg PO QDAY 02/13/20 11/05/20 History pen needle, diabetic [TechLITE Pen 02/13/20 11/05/20 History Needle] Levemir FlexTouch U-100 Insuln 15 unit SUB-Q QAM #3 ml 02/15/20 11/05/20 Rx Levemir FlexTouch U-100 Insuln 20 unit SUB-Q QHS #3 ml 02/15/20 11/05/20 Rx atenolol 100 mg PO DAILY 02/15/20 11/05/20 History nicotine 1 patch TRANSDERMA Q24H #7 each 02/16/20 11/05/20 Rx alprazolam [Xanax] 0.25 mg PO TID PRN #9 tab 05/28/20 11/05/20 Rx Anoro Ellipta 1 inh INHALATION QDAY 11/05/20 11/05/20 History fexofenadine 180 mg PO QDAY 11/05/20 11/05/20 History tamsulosin 0.4 mg PO BID 11/05/20 11/05/20 History amoxicillin-pot clavulanate 1 tab PO BID #14 tab 11/07/20 Rx [Augmentin] furosemide [Lasix] 20 mg PO BID #14 tab 11/07/20 Rx Allergies Allergy/AdvReac Type Severity Reaction Status Date / Time lovastatin Allergy Unknown Unknown Verified 11/28/20 08:46 niacin Allergy Unknown Unknown Verified 11/28/20 08:46 morphine [MORPHINE] AdvReac Mild Nausea/Vomi Verified 11/28/20 08:46 ting EXAM Constitutional Vitals: Pulse Resp BP Pulse Ox 98 H 24 H 99/67 93 11/28/20 11:16 11/28/20 11:31 11/28/20 11:31 11/28/20 11:16 Exam: General: Alert, Awake, No acute Distress, obese Eyes/N/T: EOMI, PERRL, Head/Neck: neck supple, normocephalic atraumatic, JVD and HJR CV: RRR, No murmurs, normal s1/s2 Pulm: Diminished b/l, no wheezing Abd: soft, nontender, +BS x4 Ext: no clubbing/cyanosis. 3+ b/l LE edema to abdomen. mild b/l LE erythema, nontender, warm but not hot to touch Neuro: Alert, no focal deficits, moves all extremities, CN 2-12 grossly intact, symmetrical strength b/l upper/lower, sensations intact b/l upper/lower Skin: warm/dry DATA Data Completed and Pending Labs: Labs from last 24 hours 11/28/20 11/28/20 09:00 09:00 WBC 18.8 H RBC 7.29 H Hgb 15.5 Hct 52.8 H MCV 72.4 L MCH 21.3 L MCHC 29.4 L RDW 24.1 H Plt Count 566 H MPV Neut % (Auto) 86.9 H Lymph % (Auto) 5.0 L [place] % (Auto) 5.0 Eos % (Auto) 2.0 Baso % (Auto) 1.1 Lymph # (Auto) 0.93 L [place] # (Auto) 0.94 H Eos # (Auto) 0.37 Baso # (Auto) 0.21 Absolute Neutrophils 16.32 H Sodium 139 Potassium 4.6 Chloride 105 Carbon Dioxide 21 L Anion Gap 13.0 BUN 22 Creatinine 1.7 H GFR Calculation 39 Glucose 97 Calcium 9.2 NT-Pro-B Natriuret Pep 6599.0 H A/P Narrative A/P Narrative: A: *Acute on chronic systolic(45%)/diastolic CHF w/pulm edema: *Acute on chronic hypoxic respiratory failure: -on 5L NC *h/o Dysphagia and may be contributing to pulmonary infiltrates/hypoxia: ?Aspiration PNA, but denies cough -CXR worse on right *h/o Oropharyngeal Dysphagia: *Leukocytosis: ?etiology. recent Tx for Leg cellulitis (skin breakdown) + h/o dysphagia > ?aspiration PNA *DM: A1c 6.6 *COPD (3-4L O2@home): *EDI: CPAP at bedtime *CKD III: *PVD/CAD: no recent chest pains *HTN/HLD: *Dementia with h/o anoxic brain injury: *Obesity: *Tobacco use disorder: *h/o BPH w/urinary retention: *Hypothyroidism: *Venous stasis changes with recent Tx for suspected cellulitis: -legs do not look like cellulitis, just severely edematous with associated erythema and nontender to touch Plan: -IV Lasix -monitor weights, i/os, UOP -O2 supp -ST eval -possible zosyn depending on BC/SC, check man diff / pct -home basal insulin SSI, restart metformin -Continue home Aspirin/Plavix/Atorvastatin -reconcile home meds -pt/ot -home cpap -nicotine patch and lozenges, Smoking cessation counseling -CM for placement -ppx: lovenox DNR Time Spent With Patient Time: Total time spent is greater than 50% in coordination of care (as documented) at patient's floor/unit and/or counseling patient:
--- NOTE | 2020-11-28 13:05 | EKG ---
[facility] Test Date: 2020-11-28 Pat Name: Yoni Santiago Department: ED Room: Gender: Male Show Design Supervisor: : [id number] Requested By: Jacob Garcia Order Number: [id number] Reading MD: Mando Ritter Measurements Intervals [place] Rate: 66 P: 84 NC: 230 QRS: -69 QRSD: 158 T: 26 QT: 467 QTc: 490 Interpretive Statements Sinus rhythm Prolonged NC interval RBBB Not significantly changed from prior Electronically Signed On 11-28-2020 13:04:41 PDT by Mando Ritter /store/M0/[id number]/[id number].pdf
[2020-11-28 13:10] LABS: Band Neutrophils % 2 % (0-10); Eosinophils % (Manual) 3 % (0-7); Lymphocytes % 3 % (15-49); Microcytosis 2+ (None Seen); Monocytes % (Manual) 3 % (1-12); Platelet Estimate INCREASED (Normal); RBC Morphology ABNORMAL (Normal); Reactive Lymphocytes 1 % (0-2); Segmented Neutrophils % 88 % (38-78)
[2020-11-28] MEDS ORDERED: POTASSIUM CHLORIDE 20 MEQ TABLET PO PRN ×2 (13:55)
[2020-11-28] MEDS ORDERED: POTASSIUM CHLORIDE 40 MEQ in DEXTROSE 5% IN WATER 500 ML IV PRN (13:55)
[2020-11-28] MEDS ORDERED: DEXTROSE 50% 50 ML VIAL IV PRN (13:55)
[2020-11-28] MEDS ORDERED: ONDANSETRON 4 MG/2 ML VIAL IV PRN (13:55)
[2020-11-28] MEDS ORDERED: SENNOSIDES 1 TABLET PO PRN (13:55)
[2020-11-28] MEDS ORDERED: MAGNESIUM SULFATE 2 GM/50 ML BAG IV PRN (13:55)
[2020-11-28] MEDS ORDERED: IPRATROPIUM/ALBUTEROL 3 ML AMPUL.NEB NEB PRN (13:55)
[2020-11-28] MEDS ORDERED: DEXTROSE 31 GM ORAL.SUSP PO PRN (13:55)
[2020-11-28] MEDS ORDERED: POLYETHYLENE GLYCOL 3350 17 GM PACKET PO PRN (13:55)
[2020-11-28] MEDS ORDERED: FUROSEMIDE 100 MG/10 ML VIAL IV ONE (16:00)
[2020-11-28] MEDS: 0.9 % SODIUM CHLORIDE 10 ML SYRINGE IV SCH ×2 (16:08→21:58)
[2020-11-28] MEDS: INSULIN LISPRO 1 UNIT/0.01 ML UNIT SQ SCH ×2 (17:04→21:55)
[2020-11-28] MEDS: ACETAMINOPHEN 325 MG TABLET PO PRN ×2 (17:11→23:20)
[2020-11-28] MEDS: DOCUSATE SODIUM 100 MG CAPSULE PO SCH (21:54)
[2020-11-28] MEDS: TAMSULOSIN 0.4 MG CAPSULE PO SCH (21:54)
[2020-11-29] MEDS ORDERED: ALPRAZolam 0.5 MG TABLET ONE (00:49)
[2020-11-29] MEDS ORDERED: oxyCODONE HCL 5 MG TABLET PO ONE ×2 (00:49→04:42)
[2020-11-29] MEDS: oxyCODONE HCL 5 MG TABLET PO PRN ×4 (00:53→21:40)
[2020-11-29] MEDS: 0.9 % SODIUM CHLORIDE 10 ML SYRINGE IV SCH ×3 (05:36→21:43)
[2020-11-29] MEDS: INSULIN LISPRO 1 UNIT/0.01 ML UNIT SQ SCH ×4 (07:16→21:44)
--- NOTE | 2020-11-29 07:29 | Internal Med Progress Note ---
SUBJECTIVE Subjective Patient information: Note initiated : 11/29/20 at 7:24 am Service Date, if different from initiated Date: [] Patient: Yoni Santiago 75 y/o M admitted on 11/28/20 for shortness of breath, lower leg swelling. Chief Complaint: [] Interval history: History of present illness: Mr. Santiago is a 75 year old M Presents to ED with increased leg swelling. Has chronic shortness of breath but feels like it is worse the past few days. He denies cough. Patient states nothing that brought him in today was increased redness swelling and pain of his legs. He has a history of obstructive sleep apnea uses CPAP machine and history of COPD and is on oxygen 3-4L but does not wear it all the time who does not like it. Still smoking but has cut back to <1 pack a day. He was recently admitted for venous stasis dermatitis with cellulitis as well as CHF and discharged on the with 1 week of Augmentin. Denies fever chills. Denies any coughing with food or drink. 11/29 Patient slept well. Does not feel like he used the CPAP last night. Cough and shortness of breath are chronic no change. Urine output. Review of Systems: denies headache/fever/chills/nausea/vomiting/chest or abdominal pain/diarrhea. Otherwise see above. Constitutional Vitals: Vital Signs Temp Pulse Resp BP Pulse Ox 98.8 F 35 L 24 H 133/70 89 L 11/29/20 00:00 11/28/20 18:36 11/29/20 01:20 11/29/20 00:00 11/29/20 01:20 Period Temp Pulse Resp BP Sys/[place] Pulse Ox Last 24 Hr 97.4 F-98.8 F 8-98 16-27 93-135/51-117 52-94 Intake and Output 11/28/20 11/29/20 11/29/20 21:59 05:59 13:59 Intake Total 280 Output Total 1375 300 Balance -1095 -300 Weight 93.349 kg Intake & Output: Intake & Output 11/28/20 11/29/20 11/29/20 21:59 05:59 13:59 Intake Total 280 Output Total 1375 300 Balance -1095 -300 Weight 93.349 kg Intake: Oral 280 Output: Urine Catheter Amount 1375 300 Other: Meal apple sauce Percent of Meal Consumed 100% Feeding Ability Independent Urine Appearance Clear Clear Uretheral (Souza) Clear Urine Color Dark Yellow Dark Yellow Uretheral (Souza) Pale Exam: General: Alert, Awake, No acute Distress, obese Eyes/N/T: EOMI, Head/Neck: neck supple, JVD and HJR CV: RRR, No murmurs, Pulm: Diminished b/l, no wheezing Abd: soft, nontender, +BS x4 Ext: no clubbing/cyanosis. 3+ b/l LE edema to abdomen. mild b/l LE erythema, nontender, warm but not hot to touch Neuro: Alert, no focal deficits, moves all extremities, Skin: warm/dry OBJ DATA Labs CBC & Chem 7: 11/29/20 05:29 11/29/20 05:28 Labs: Abnormal Lab Results 11/28/20 11/28/20 11/28/20 09:00 09:00 08:47 WBC 18.8 H RBC 7.29 H Hct 52.8 H MCV 72.4 L MCH 21.3 L MCHC 29.4 L RDW 24.1 H Plt Count 566 H Neut % (Auto) 86.9 H Lymph % (Auto) 5.0 L Lymph # (Auto) 0.93 L [place] # (Auto) 0.94 H Seg Neutrophils % Lymphocytes % Absolute Neutrophils 16.32 H Platelet Estimate RBC Morphology Microcytosis Carbon Dioxide 21 L Creatinine 1.7 H NT-Pro-B Natriuret Pep 6599.0 H Procalcitonin 0.11 H 11/28/20 08:47 WBC RBC Hct MCV MCH MCHC RDW Plt Count Neut % (Auto) Lymph % (Auto) Lymph # (Auto) [place] # (Auto) Seg Neutrophils % 88 H Lymphocytes % 3 L Absolute Neutrophils Platelet Estimate Increased A RBC Morphology Abnormal A Microcytosis 2+ A Carbon Dioxide Creatinine NT-Pro-B Natriuret Pep Procalcitonin Meds: Medications Acetaminophen (Acetaminophen 325 Mg Tablet) 650 mg PO Q6HP PRN PRN Reason: PAIN/FEVER > 101 Last Admin: 11/28/20 23:20 Dose: 650 mg Documented by: Albuterol/Ipratropium (Ipratropium/Albuterol 3 Ml Ampul.Neb) 3 ml NEB Q4HP PRN PRN Reason: Shortness Of Breath Alprazolam (Alprazolam 0.25 Mg Tablet) 0.25 mg PO TIDP PRN PRN Reason: Anxiety Dextrose (Dextrose 50% 50 Ml Vial) 0 ml IV UD PRN PRN Reason: Hypoglycemia Diagnostic Test (Pha) (Accu-Chek 1 Each Strip) 1 each FS [facility] Last Admin: 11/29/20 07:16 Dose: 1 each Documented by: Docusate Sodium (Docusate Sodium 100 Mg Capsule) 100 mg PO BID [facility] Last Admin: 11/28/20 21:54 Dose: 100 mg Documented by: Enoxaparin Sodium (Enoxaparin 40 Mg/0.4 Ml Syringe) 40 mg SQ DAILY [facility] Furosemide (Furosemide 40 Mg/4 Ml Vial) 40 mg IV Q8 [facility] Last Admin: 11/29/20 07:22 Dose: 40 mg Documented by: Glucose (Dextrose 31 Gm Oral.Susp) 15 gm PO PRN PRN PRN Reason: Hypoglycemia Potassium Chloride 40 meq/ (Dextrose) 520 mls @ 130 mls/hr IV UD PRN PRN Reason: Potassium < 3 Magnesium Sulfate (Magnesium Sulfate) 2 gm in 50 mls @ 50 mls/hr IV UD PRN PRN Reason: Magnesium </= 1.6 Insulin Human Lispro (Insulin Lispro 1 Unit/0.01 Ml Unit) 0 unit SQ [facility]; Protocol Last Admin: 11/29/20 07:16 Dose: Not Given Documented by: Nicotine (Nicotine 14 Mg Patch) 14 mg TOPICAL DAILY@1000 EMILY Ondansetron HCl (Ondansetron 4 Mg/2 Ml Vial) 4 mg IV Q4HP PRN PRN Reason: Nausea And Vomiting Oxycodone HCl (Oxycodone Hcl 5 Mg Tablet) 5 mg PO Q4HP PRN; Protocol PRN Reason: Per Pain Protocol Last Admin: 11/29/20 05:03 Dose: 5 mg Documented by: Polyethylene Glycol (Polyethylene Glycol 3350 17 Gm Packet) 17 gm PO DAILYP PRN PRN Reason: Constipation Potassium Chloride (Potassium Chloride 20 Meq Tablet) 40 meq PO UD PRN PRN Reason: Potssium is 3-3.5 Potassium Chloride (Potassium Chloride 20 Meq Tablet) 40 meq PO UD PRN PRN Reason: Potassium < 3 Senna (Sennosides 1 Tablet) 2 tab PO DAILYP PRN PRN Reason: Constipation Sodium Chloride (0.9 % Sodium Chloride 10 Ml Syringe) 10 ml IV Q8 [facility] Last Admin: 11/29/20 05:36 Dose: 10 ml Documented by: Tamsulosin HCl (Tamsulosin 0.4 Mg Capsule) 0.8 mg PO HS [facility] Last Admin: 11/28/20 21:54 Dose: 0.8 mg Documented by: A/P Narrative A/P Narrative: A: *Acute on chronic systolic(45%)/diastolic CHF w/pulm edema: - *Acute on chronic hypoxic respiratory failure: -covid neg -on 5-6L NC *h/o Dysphagia and may be contributing to pulmonary infiltrates/hypoxia: ? Aspiration PNA, but denies cough -CXR worse on right *h/o Oropharyngeal Dysphagia: *Leukocytosis: ?etiology. recent Tx for Leg cellulitis (skin breakdown) + h/o dysphagia > ?aspiration PNA vs reactive -afebrile, CRP/PCT low, no bandemia -resolvoing w/o abx *DM: A1c 6.6 *COPD (3-4L O2@home): *EDI: CPAP at bedtime *CKD III: *PVD/CAD: no recent chest pains *HTN/HLD: *Dementia with h/o anoxic brain injury: *Obesity: *Tobacco use disorder: *h/o BPH w/urinary retention: *Hypothyroidism: *Anxiety: *Venous stasis changes with recent Tx for suspected cellulitis: -legs do not look like cellulitis, just severely edematous with associated erythema and nontender to touch Plan: -Lasix gtt -monitor weights, i/os, UOP -O2 supp -ST eval -monitor for signs of infection, holding abx for now, still pending BC results -home basal insulin SSI, -Continue home Aspirin/Plavix/Atorvastatin -pt/ot -home cpap -nicotine patch and lozenges, Smoking cessation counseling -CM for placement -ppx: lovenox / home h2 DNR Time Spent With Patient Time: Total time spent is greater than 50% in coordination of care (as documented) at patient's floor/unit and/or counseling patient:
[2020-11-29 07:30] LABS: Hematocrit 46.9 % (40.1-51.0); Hemoglobin 13.8 g/dL (13.7-17.5); Mean Cell Volume 71.1 fL (80.0-100.0); Mean Corpuscular HGB Conc 29.4 g/dL (31.0-36.0); Platelet Count 530 K/mcL (140-440); Red Cell Distribution Width 23.4 % (11.5-14.5); WBC 14.1 K/mcL (4.5-11.0)
[2020-11-29 07:42] LABS: ALT/SGPT 14 U/L (<40); AST/SGOT 14 U/L (<40); Albumin 3.3 gm/dL (3.2-5.2); Albumin/Globulin Ratio 1.3 (1.0-2.3); Alkaline Phosphatase 145 U/L (39-117); Bilirubin,Direct 0.5 mg/dL (<0.3); Bilirubin,Total 0.8 mg/dL (0.1-1.0); Blood Urea Nitrogen 23 mg/dL (8-23); Calcium 8.5 mg/dL (8.6-10.4); Carbon Dioxide 20 mmol/L (22-30); Chloride 103 mmol/L (96-108); Globulin 2.6 gm/dL (2.2-3.7); Glomerular Filtration Rate 45; Glucose 108 mg/dL (70-105); Lactate Dehydrogenase 393 U/L (135-225); Phosphorous 4.1 mg/dL (2.5-4.5); Triglycerides 83 mg/dL (<150); Uric Acid 11.6 mg/dL (2.5-8.0)
[2020-11-29] MEDS ORDERED: FUROSEMIDE 40 MG/4 ML VIAL IV SCH (08:00)
[2020-11-29] MEDS: TAMSULOSIN 0.4 MG CAPSULE PO SCH ×3 (08:07→21:49)
[2020-11-29] MEDS: LEVOTHYROXINE 25 MCG TABLET PO SCH (08:07)
[2020-11-29] MEDS: ATENOLOL 50 MG TABLET PO SCH ×2 (08:07→21:40)
[2020-11-29] MEDS: DOCUSATE SODIUM 100 MG CAPSULE PO SCH ×2 (08:07→21:40)
[2020-11-29] MEDS: POTASSIUM CHLORIDE 20 MEQ TABLET PO SCH (08:07)
[2020-11-29] MEDS ORDERED: HYDROCHLOROTHIAZIDE 12.5 MG CAPSULE PO ONE (08:13)
[2020-11-29] MEDS: FUROSEMIDE 250 MG in 0.9 % SODIUM CHLORIDE 225 ML IV SCH (08:26)
[2020-11-29] MEDS ORDERED: INSULIN GLARGINE, HUMAN 1 UNIT/0.01 ML SQ SCH (09:00)
[2020-11-29] MEDS ORDERED: FAMOTIDINE 20 MG TABLET PO SCH (09:00)
[2020-11-29] MEDS ORDERED: CLOPIDOGREL 75 MG TABLET PO SCH (09:00)
[2020-11-29] MEDS ORDERED: ENOXAPARIN 40 MG/0.4 ML SYRINGE SQ SCH (09:00)
[2020-11-29] MEDS: ACETAMINOPHEN 325 MG TABLET PO PRN ×3 (09:12→22:26)
[2020-11-29 09:17] LABS: Band Neutrophils % 8 % (0-10); Eosinophils % (Manual) 3 % (0-7); Lymphocytes % 6 % (15-49); Monocytes % (Manual) 4 % (1-12); Platelet Estimate INCREASED (Normal); Polychromasia FEW (None Seen); RBC Morphology ABNORMAL (Normal); Segmented Neutrophils % 79 % (38-78)
[2020-11-29] MEDS ORDERED: NICOTINE 14 MG PATCH TOPICAL SCH (10:00)
[2020-11-29] MEDS: KETOROLAC TROMETHAMINE 1 GTT BOTTLE OP SCH ×3 (11:56→21:44)
[2020-11-29] MEDS ORDERED: ATORVASTATIN 40 MG TABLET PO SCH (21:00)
[2020-11-29] MEDS: ALPRAZolam 0.25 MG TABLET PO PRN (21:42)
[2020-11-30] MEDS: oxyCODONE HCL 5 MG TABLET PO PRN (00:58)
[2020-11-30] MEDS ORDERED: FUROSEMIDE 100 MG/10 ML VIAL IV ONE (02:22)
[2020-11-30] MEDS ORDERED: FUROSEMIDE 20 MG/2 ML VIAL IV ONE (02:24)
[2020-11-30] MEDS: ALPRAZolam 0.25 MG TABLET PO PRN (03:26)
[2020-11-30] MEDS: FUROSEMIDE 250 MG in 0.9 % SODIUM CHLORIDE 225 ML IV SCH (04:59)
[2020-11-30] MEDS: 0.9 % SODIUM CHLORIDE 10 ML SYRINGE IV SCH (05:03)
--- NOTE | 2020-11-30 07:43 | Discharge Summary ---
Discharge Provider Provider Patient information: Note initiated : 11/30/20 at 7:41 am Service Date, if different from initiated Date: [] Patient: Yoni Santiago 75 y/o M admitted on 11/28/20 for shortness of breath, lower leg swelling. Chief Complaint: [] Date of admission: 11/28/20 13:29 Discharge date: 11/30/20 Primary care physician: Shawnee Palma PA-C Consults: 11/28/20 Consult to Physician [CONS] Stat Comment: Consulting Provider: Clay Medina Reason For Exam: Physician to Consult Discharge Meds Discharge Medications Home Medications atorvastatin 40 mg PO HS 12/16/16 [History Confirmed 11/28/20 Last Taken Unknown] clopidogrel 75 mg PO DAILY 12/16/16 [History Confirmed 11/28/20 Last Taken Unknown] ketorolac [Acular] 1 drp OPHTHALMIC (EYE) TID 02/13/20 [History Confirmed 11/29/20 Last Taken Unknown] levothyroxine 25 mcg PO QDAY 02/13/20 [History Confirmed 11/28/20 Last Taken Unknown] Levemir FlexTouch U-100 Insuln 15 unit SUB-Q QAM #3 ml 02/15/20 [Rx Confirmed 11/28/20 Last Taken Unknown] alprazolam [Xanax] 0.25 mg PO TID PRN #9 tab 05/28/20 [Rx Confirmed 11/28/20 Last Taken Unknown] tamsulosin 0.4 mg PO BID 11/05/20 [History Confirmed 11/28/20 Last Taken Unknown] amoxicillin-pot clavulanate [Augmentin] 1 tab PO BID #14 tab 11/07/20 [Rx Confirmed 11/28/20 Last Taken Unknown] Acid Cigar Sorter (famotidine) 20 mg PO QAM 11/28/20 [History Confirmed 11/28/20 Last Taken Unknown] Allergy Relief (loratadine) 10 mg PO QAM 11/28/20 [History Confirmed 11/28/20 Last Taken Unknown] atenolol 50 mg PO BID 11/28/20 [History Confirmed 11/28/20 Last Taken Unknown] furosemide [Lasix] 40 mg PO BID 11/28/20 [History Confirmed 11/28/20 Last Taken Unknown] oxycodone 5 mg PO Q4 PRN 11/28/20 [History Confirmed 11/28/20 Last Taken Unknown] pen needle, diabetic [TechLITE Pen Needle] 11/28/20 [History Confirmed 11/28/20 Last Taken Unknown] potassium chloride 20 meq PO QAM 11/28/20 [History Confirmed 11/28/20 Last Taken Unknown] prednisone 20 mg PO QDAY 11/28/20 [History Confirmed 11/28/20 Last Taken Unknown] triamcinolone acetonide [Triderm] 1 applic TOPICAL QHS 11/28/20 [History Confirmed 11/28/20 Last Taken Unknown] COURSE Hospital Course Hospital course: Interval history: History of present illness: Mr. Santaigo is a 75 year old M Presents to ED with increased leg swelling. Has chronic shortness of breath but feels like it is worse the past few days. He denies cough. Patient states nothing that brought him in today was increased redness swelling and pain of his legs. He has a history of obstructive sleep apnea uses CPAP machine and history of COPD and is on oxygen 3-4L but does not wear it all the time who does not like it. Still smoking but has cut back to <1 pack a day. He was recently admitted for venous stasis dermatitis with cellulitis as well as CHF and discharged on the with 1 week of Augmentin. Denies fever chills. Denies any coughing with food or drink. 11/29 Patient slept well. Does not feel like he used the CPAP last night. Cough and shortness of breath are chronic no change. Urine output. 11/30 Early this morning patient left AMA. RisksDiscussed with him prior to leaving. Patient likely will be readmitted given underlying significant comorbidities and leaving AMA A: *Acute on chronic systolic(45%)/diastolic CHF w/pulm edema: *Acute on chronic hypoxic respiratory failure: *h/o Dysphagia and may be contributing to pulmonary infiltrates/hypoxia: ?Aspiration PNA, but denies cough *h/o Oropharyngeal Dysphagia: *Leukocytosis: ?etiology. recent Tx for Leg cellulitis (skin breakdown) + h/o dysphagia > ?aspiration PNA vs reactive -afebrile, CRP/PCT low, no bandemia -resolvoing w/o abx *DM: A1c 6.6 *COPD (3-4L O2@home): *EDI: CPAP at bedtime *CKD III: *PVD/CAD: no recent chest pains *HTN/HLD: *Dementia with h/o anoxic brain injury: *Obesity: *Tobacco use disorder: *h/o BPH w/urinary retention: *Hypothyroidism: *Anxiety: *Venous stasis changes with recent Tx for suspected cellulitis: Discharge diagnosis: Acute on chronic systolic diastolic heart failure with pulmonary edema acut Secondary discharge diagnosis: Dysphagia oropharyngeal dysphagia diabetes COPD obstructive sleep apnea chronic kidney disease peripheral vascularity CAD hypertension dementia obesity tobacco abuse hypothyroidism anxiety venous stasis changes Time Spent with Patient Time attestation: Total time spent providing and/or coordinating discharge services: EXAM Constitutional Vitals: Temp Pulse Resp BP Pulse Ox 98.3 F 67 25 H 131/108 90 11/29/20 16:00 11/29/20 00:12 11/30/20 05:54 11/29/20 18:01 11/30/20 05:54 Discharge Data Data Completed and Pending Labs on day of discharge: Labs from last 24 hours 11/29/20 11/29/20 05:29 05:28 Seg Neutrophils % 79 H Band Neutrophils % 8 Lymphocytes % 6 L Monocytes % (Manual) 4 Eosinophils % (Manual) 3 Platelet Estimate Increased A RBC Morphology Abnormal A Polychromasia Few A Sodium 137 Potassium 4.5 Chloride 103 Carbon Dioxide 20 L Anion Gap 14.0 BUN 23 Creatinine 1.5 H GFR Calculation 45 Glucose 108 H Uric Acid 11.6 H Calcium 8.5 L Phosphorus 4.1 Magnesium 1.9 Total Bilirubin 0.8 Direct Bilirubin 0.5 H GGT 49 AST 14 ALT 14 Alkaline Phosphatase 145 H Lactate Dehydrogenase 393 H Total Protein 5.9 Albumin 3.3 Globulin 2.6 Albumin/Globulin Ratio 1.3 Triglycerides 83 Preliminary micro results at discharge 11/28/20 15:16 Blood Culture - Preliminary Blood 11/28/20 13:25 Blood Culture - Preliminary Blood Discharge Plan Patient/Caregiver Discharge Instructions Prescriptions: No Action atorvastatin 40 MG tablet 40 mg PO HS RF: 0 clopidogrel 75 MG tablet 75 mg PO DAILY RF: 0 levothyroxine 25 mcg Tablet 25 mcg PO QDAY RF: 0 ketorolac [Acular] 0.5 % Drops 1 drp ophthalmic (eye) TID RF: 0 Levemir FlexTouch U-100 Insuln 100 unit/mL (3 mL) insulin pen 15 unit SUB-Q QAM Qty: 3 RF: 0 alprazolam [Xanax] 0.25 mg tablet 0.25 mg PO TID PRN (Reason: anxiety) Qty: 9 RF: 0 tamsulosin 0.4 MG capsule 0.4 mg PO BID RF: 0 amoxicillin-pot clavulanate [Augmentin] 875-125 mg tablet 1 tab PO BID Qty: 14 RF: 0 atenolol 50 mg tablet 50 mg PO BID RF: 0 furosemide [Lasix] 20 mg tablet 40 mg PO BID RF: 0 Acid Cigar Sorter (famotidine) tablet 20 mg PO QAM RF: 0 Allergy Relief (loratadine) tablet 10 mg PO QAM RF: 0 prednisone 20 mg tablet 20 mg PO QDAY RF: 0 triamcinolone acetonide [Triderm] 0.1 % cream 1 applic topical QHS RF: 0 potassium chloride 20 mEq tablet,ER particles/crystals 20 meq PO QAM RF: 0 oxycodone 5 mg tablet 5 mg PO Q4 PRN (Reason: Pain) RF: 0 (DME) pen needle, diabetic [TechLITE Pen Needle] 32 gauge x 5/32" needle MISCELLANEOUS RF: 0 Follow Up Plan Follow up with: Shawnee Palma PA-C [Primary Care Provider] - Patient Disposition: Left Against Medical Advice Prognosis: Fair
[2020-11-30] MEDS: INSULIN LISPRO 1 UNIT/0.01 ML UNIT SQ SCH (08:03)
[2020-11-30] MEDS: LEVOTHYROXINE 25 MCG TABLET PO SCH (08:03)
[2020-11-30] MEDS: POTASSIUM CHLORIDE 20 MEQ TABLET PO SCH (08:05)
[2020-11-30] MEDS: TAMSULOSIN 0.4 MG CAPSULE PO SCH (09:02)
[2020-11-30] MEDS: DOCUSATE SODIUM 100 MG CAPSULE PO SCH (09:02)
--- NOTE | 2020-11-30 15:47 | Event Note ---
Event Note Event Note: Patient still here. Was supposed to discharge yesterday but family feeling ill and could not take him and thought they would be able to take him today but now they are in minor care feeling worse. They state a family member is flying in tomorrow morning and that family member we will knot picker cloth the patient tomorrow morning.
== END 2020-11-30 05:33 | disposition left against medical advice (07) | DRG 291 ==
LOC: ED 08:40 → ICU 13:29
PROVIDERS: ADMIT Internal Medicine; ATTEND Internal Medicine